=== PATIENT | female | born 1980 | race Caucasian/White ===

== ENCOUNTER 2016-05-15 20:51 | Emergency (ER) | payer OTHER ==
--- NOTE | 2016-05-15 21:43 | RAD ---
INDICATION: Diabetic ketoacidosis COMPARISON: May 25, 2015 TECHNIQUE: An AP portable view obtained at 2130 hours is submitted. FINDINGS: Bones/Soft Tissues: There are no acute bony findings. Cardiomediastinal: The cardiomediastinal silhouette is normal. Lungs: There are no infiltrates. Pleura: There are no pleural effusions. Other: None IMPRESSION: NO ACTIVE DISEASE.
[2016-05-15 22:33] LABS: Hematocrit 46 % (35-47); Hemoglobin 15.4 g/dl (12.0-16.0); Mean Corpuscular HGB Conc 34 g/dl (31-36); Mean Corpuscular Hemoglobin 29 pg (27-31); Mean Corpuscular Volume 86 fL (80-97); Mean Platelet Volume 8 um3 (7.4-10.4); Red Blood Count 5.29 10^6/ul (4.0-5.4); Red Cell Distribution Width 13 % (10.5-15); White Blood Count 11.1 10^3/ul (3.5-10.8)
[2016-05-15 22:47] LABS: ALT 26 U/L (7-52); Albumin 3.7 g/dL (3.2-5.2); Alkaline Phosphatase 83 U/L (34-104); BUN/Creatinine Ratio 23.6 (8-20); Blood Urea Nitrogen 17 mg/dL (6-24); CO2 Carbon Dioxide 22 mmol/L (22-32); Calcium 8.9 mg/dL (8.6-10.3); Chloride 101 mmol/L (101-111); EGFR African American 117.2 (>60); EGFR Non-African American 91.1 (>60); Glucose 418 mg/dL (70-100); Sodium 134 mmol/L (133-145); Total Protein 6.7 g/dL (6.4-8.9)
[2016-05-15] MEDS ORDERED: NS 0.9% 1000 ML* 3,000 ML IV ONE (22:55)
[2016-05-15 23:12] LABS: Urine Bacteria Absent (Absent); Urine Bilirubin Negative (Negative); Urine Glucose 3+(>=500 mg/dL) (Negative); Urine Nitrite Negative (Negative)
[2016-05-15] MEDS ORDERED: Ondansetron INJ* 2 MG/ML VIAL IV ONE (23:46)
[2016-05-15] MEDS ORDERED: Morphine INJ* 4 MG/ML 1 ML CARPUJECT IV ONE (23:46)
[2016-05-15] MEDS ORDERED: Insulin REGULAR(*) 1 UNITS UNIT SUBCUT ONE (23:53)
[2016-05-16 00:35] LABS: Venous Bicarbonate HCO3 19.9 mmol/L (24-28)
[2016-05-16 00:40] LABS: BUN/Creatinine Ratio 24.2 (8-20); EGFR African American 129.6 (>60); EGFR Non-African American 100.8 (>60); Potassium 4.1 mmol/L (3.5-5.0)
[2016-05-16] MEDS ORDERED: Fluconazole 100 MG TAB* TAB PO ONE (00:43)
[2016-05-16] MEDS ORDERED: Morphine INJ* 2 MG/ML 1 ML CARPUJECT IV ONE ×2 (01:35→03:05)
[2016-05-16] MEDS ORDERED: Ondansetron INJ* 2 MG/ML VIAL ONE (01:44)
[2016-05-16] MEDS ORDERED: Ondansetron INJ* 2 MG/ML VIAL IV ONE (01:54)
[2016-05-16] MEDS ORDERED: Iodixanol* (CONTRAST) 320 MG/ML 100 ML SDV IV ONE (02:02)
[2016-05-16] MEDS ORDERED: Mouth Piece, Nicotine* 1 EACH CARTRIDGE ONE (02:58)
[2016-05-16] MEDS ORDERED: Nicotine Inhaler* 10 MG AMP ONE (02:58)
[2016-05-16] MEDS ORDERED: Nicotine Inhaler* 10 MG AMP INH ONE (02:59)
[2016-05-16] MEDS ORDERED: Morphine INJ* 4 MG/ML 1 ML CARPUJECT ONE (03:03)
[2016-05-16 03:15] VITALS: BP 128/82
[2016-05-16] MEDS ORDERED: Levofloxacin TAB* 500 MG PO ONE (03:24)
--- NOTE | 2016-05-16 03:44 | ED ---
Chelsea Celaya SooYoung, scribed for Slick Barney on 05/16/16 at 0306 . Progress - Progress Note Progress Note: Sign out from Dr. Lozano. Awaiting CT results. - Results/Orders Results/Orders: A/P CT RESULTS, READ BY RADIOLOGIST IMPRESSION: No evidence of acute pathology. Course/Dx - Course Course Of Treatment: CT is negative. Pt will be D/C with Levaquin. - Diagnoses Provider Diagnoses: UTI (urinary tract infection), Uncontrolled diabetes mellitus The documentation as recorded by the Chelsea gunter SooYoung accurately reflects the service I personally performed and the decisions made by Ector gilliland Emmanuel.
--- NOTE | 2016-05-16 08:00 | RAD ---
INDICATION: Left lower quadrant and left flank pain. COMPARISON: Correlation is made with a prior right upper quadrant ultrasound from April 14, 2011. TECHNIQUE: A CT scan of the abdomen and pelvis was performed with intravenous and oral contrast following intravenous injection of 100 ml of Visipaque 320 nonionic contrast. Contiguous axial sections were obtained from the lung bases through the symphysis pubis. Images were reconstructed in the coronal and sagittal planes. FINDINGS: The lung bases are clear. No pleural effusion is present. The liver is moderately enlarged and decreased in attenuation consistent with fatty infiltration. No significant focal abnormality is seen. The spleen is normal in size without focal abnormality. The pancreas appears to be within normal limits. No calcified gallstones are seen. The kidneys and adrenal glands are normal in size. No hydronephrosis is seen. There is a small 0.8 cm cyst in the upper pole of the right kidney. The aorta is normal in caliber with mild calcific plaque present. No significant enlarged retroperitoneal lymph nodes are seen. The stomach, small and large bowel appear nondistended. The appendix is within normal limits. There is moderate descending and sigmoid diverticulosis without evidence for diverticulitis. The uterus is anteverted and normal in size. No free intraperitoneal air or fluid is seen. No significant focal osseous abnormality is seen. IMPRESSION: 1. NO EVIDENCE FOR ACUTE FINDING OR CAUSE FOR THE PATIENT'S ABDOMINAL PAIN IS SEEN. 2. MODERATE HEPATOMEGALY AND HEPATIC STEATOSIS.
--- NOTE | 2016-05-22 23:42 | ED ---
Tawny Celaya Janilya, scribed for Reuben Lozano MD on 05/15/16 at 2338 . Complex/Multi-Sys Presentation - HPI Summary HPI Summary: A 36 y/o female came in to [facility] presenting w/ a gradual onset of constant lower back pain, mid abd pain, and flank pain starting . Pt also reported migraine, mild bloody stool, diarrhea, chills, mild coughing. Pt denies fever, body aches. Pt has been out of insulin for over a week. Pt was on Vicodin for tooth ache two months ago. Dr. Guajardo is her PCP. PMHx DM. No PSHx gallbladder removed, appendectomy. - History Of Current Complaint Chief Complaint: EDGeneral Time Seen by Provider: 05/15/16 21:24 Hx Obtained From: Patient Onset/Duration: Gradual Onset Timing: Constant Severity Currently: Moderate Severity Initially: Moderate Associated Signs And Symptoms: Positive: Headache, Cough, Diarrhea, Abdominal Pain, Back Pain. Negative: Dysuria, Fever - Allergies/Home Medications Allergies/Adverse Reactions: Allergies Allergy/AdvReac Type Severity Reaction Status Date / Time Aspirin Allergy Vomiting Verified 05/15/16 20:54 Chlorpromazine Allergy Swelling Verified 05/15/16 20:54 [From Thorazine] Glipizide Allergy Blurred Verified 05/15/16 20:54 Vision PMH/Surg Hx/FS Hx/Imm Hx Endocrine/Hematology History: Reports: Hx Diabetes Cardiovascular History: Reports: Hx Hypertension, Other Cardiovascular Problems/ Disorders - born with hole in heart, HX of mumur as child. Denies: Hx Pacemaker/ICD Respiratory History: Reports: Hx Asthma - As a child GI History: Reports: Other GI Disorders - IBS Musculoskeletal History: Denies: Hx Rheumatoid Arthritis, Hx Osteoporosis Sensory History: Denies: Hx Hearing Aid Neurological History: Reports: Hx Headaches Denies: Other Neuro Impairments/Disorders Psychiatric History: Reports: Hx Panic Disorder - Surgical History Surgery Procedure, Year, and Place: FATTY LIPOMA OF RIGHT AXILLIA NOV 2013 Infectious Disease History: No Infectious Disease History: Denies: Traveled Outside the [place] in Last 30 Days - Family History Known Family History: Positive: Diabetes - father - Social History 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 Negative: Fever Negative: Erythema Negative: Sore Throat Negative: Chest Pain Positive: Cough - mild coughing. Negative: Shortness Of Breath Positive: Abdominal Pain, Diarrhea. Negative: Vomiting, Nausea Genitourinary: Other - mild bloody stool Positive: flank pain. Negative: dysuria, hematuria Musculoskeletal: Negative - pt denies other body aches Positive: Arthralgia - back pain, Myalgia - back pain. Negative: Edema Negative: Rash Positive: Headache All Other Systems Reviewed And Are Negative: Yes Physical Exam - Summary Physical Exam Summary: Constitutional: Well-developed, Well-nourished, Alert. (-) Distressed Skin: Warm, Dry HENT: Normocephalic; Atraumatic; dry mucous membranes Eyes: Conjunctiva normal Neck: Musculoskeletal ROM normal neck. (-) JVD, (-) Stridor, (-) Tracheal deviation Cardio: Rhythm regular, rate normal, Heart sounds normal; Intact distal pulses; The pedal pulses are 2+ and symmetric. Radial pulses are 2+ and symmetric. (-) Murmur Pulmonary/Chest wall: Effort normal. (-) Respiratory distress, (-) Wheezes, (-) Rales Abd: Soft, LLQ tenderness, (-) Distension, (-) Guarding, (-) Rebound Musculoskeletal: (-) Edema, CVA tenderness Lymph: (-) Cervical adenopathy Neuro: Alert, Oriented x3 Psych: Mood and affect Normal Triage Information Reviewed: Yes Vital Signs On Initial Exam: Initial Vitals Temp Pulse Resp BP Pulse Ox 97.6 F 107 18 160/91 96 05/15/16 20:54 05/15/16 20:54 05/15/16 20:54 05/15/16 20:54 05/15/16 20:54 Vital Signs Reviewed: Yes Diagnostics - Vital Signs Vital Signs Temp Pulse Resp BP Pulse Ox 05/15/16 23:00 108 139/86 97 05/15/16 22:30 88 129/75 97 05/15/16 22:16 93 95 05/15/16 22:14 124/77 05/15/16 20:54 97.6 F 107 18 160/91 96 - Laboratory Lab Results: Lab Results 05/15/16 05/15/16 05/15/16 Range/Units 21:00 22:20 22:20 WBC 11.1 H (3.5-10.8) 10^3/ul RBC 5.29 (4.0-5.4) 10^6/ul Hgb 15.4 (12.0-16.0) g/dl Hct 46 (35-47) % MCV 86 (80-97) fL MCH 29 (27-31) pg MCHC 34 (31-36) g/dl RDW 13 (10.5-15) % Plt Count 287 (150-450) 10^3/ul MPV 8 (7.4-10.4) um3 Neut % (Auto) 55.4 (38-83) % Lymph % (Auto) 35.3 (25-47) % [place] % (Auto) 8.0 (1-9) % Eos % (Auto) 0.7 (0-6) % Baso % (Auto) 0.6 (0-2) % Absolute Neuts (auto) 6.1 (1.5-7.7) 10^3/ul Absolute Lymphs (auto) 3.9 (1.0-4.8) 10^3/ul Absolute Monos (auto) 0.9 H (0-0.8) 10^3/ul Absolute Eos (auto) 0.1 (0-0.6) 10^3/ul Absolute Basos (auto) 0.1 (0-0.2) 10^3/ul Absolute Nucleated RBC 0 10^3/ul Nucleated RBC % 0 Sodium 134 (133-145) mmol/L Potassium TNP Chloride 101 (101-111) mmol/L Carbon Dioxide 22 (22-32) mmol/L Anion Gap TNP BUN 17 (6-24) mg/dL Creatinine 0.72 (0.51-0.95) mg/dL Est GFR ( Amer) 117.2 (>60) Est GFR (Non-Af Amer) 91.1 (>60) BUN/Creatinine Ratio 23.6 H (8-20) Glucose 418 H (70-100) mg/dL Lactic Acid (0.5-2.0) mmol/L Calcium 8.9 (8.6-10.3) mg/dL Total Bilirubin 0.30 (0.2-1.0) mg/dL AST TNP ALT 26 (7-52) U/L Alkaline Phosphatase 83 (34-104) U/L Total Protein 6.7 (6.4-8.9) g/dL Albumin 3.7 (3.2-5.2) g/dL Globulin 3.0 (2-4) g/dL Albumin/Globulin Ratio 1.2 (1-3) Urine Color Yellow Urine Appearance Cloudy Urine pH 5.0 (5-9) Ur Specific [place] 1.036 H (1.010-1.030) Urine Protein Negative (Negative) Urine Ketones Trace H (Negative) Urine Blood 1+ H (Negative) Urine Nitrate Negative (Negative) Urine Bilirubin Negative (Negative) Urine Urobilinogen Negative (Negative) Ur Leukocyte Esterase 3+ H (Negative) Urine WBC (Auto) 3+(>20/hpf) H (Absent) Urine RBC (Auto) 3+(>10/hpf) H (Absent) Ur Squamous Epith Cells Present H (Absent) Urine Bacteria Absent (Absent) Urine Glucose 3+(>=500 mg/dl) H (Negative) 05/15/16 Range/Units 22:20 WBC (3.5-10.8) 10^3/ul RBC (4.0-5.4) 10^6/ul Hgb (12.0-16.0) g/dl Hct (35-47) % MCV (80-97) fL MCH (27-31) pg MCHC (31-36) g/dl RDW (10.5-15) % Plt Count (150-450) 10^3/ul MPV (7.4-10.4) um3 Neut % (Auto) (38-83) % Lymph % (Auto) (25-47) % [place] % (Auto) (1-9) % Eos % (Auto) (0-6) % Baso % (Auto) (0-2) % Absolute Neuts (auto) (1.5-7.7) 10^3/ul Absolute Lymphs (auto) (1.0-4.8) 10^3/ul Absolute Monos (auto) (0-0.8) 10^3/ul Absolute Eos (auto) (0-0.6) 10^3/ul Absolute Basos (auto) (0-0.2) 10^3/ul Absolute Nucleated RBC 10^3/ul Nucleated RBC % Sodium (133-145) mmol/L Potassium Chloride (101-111) mmol/L Carbon Dioxide (22-32) mmol/L Anion Gap BUN (6-24) mg/dL Creatinine (0.51-0.95) mg/dL Est GFR ( Amer) (>60) Est GFR (Non-Af Amer) (>60) BUN/Creatinine Ratio (8-20) Glucose (70-100) mg/dL Lactic Acid 3.4 H* (0.5-2.0) mmol/L Calcium (8.6-10.3) mg/dL Total Bilirubin (0.2-1.0) mg/dL AST ALT (7-52) U/L Alkaline Phosphatase (34-104) U/L Total Protein (6.4-8.9) g/dL Albumin (3.2-5.2) g/dL Globulin (2-4) g/dL Albumin/Globulin Ratio (1-3) Urine Color Urine Appearance Urine pH (5-9) Ur Specific [place] (1.010-1.030) Urine Protein (Negative) Urine Ketones (Negative) Urine Blood (Negative) Urine Nitrate (Negative) Urine Bilirubin (Negative) Urine Urobilinogen (Negative) Ur Leukocyte Esterase (Negative) Urine WBC (Auto) (Absent) Urine RBC (Auto) (Absent) Ur Squamous Epith Cells (Absent) Urine Bacteria (Absent) Urine Glucose (Negative) Result Diagrams: 05/15/16 22:20 05/15/16 22:20 Lab Statement: Any lab studies that have been ordered have been reviewed, and results considered in the medical decision making process. - Radiology CXR Xray Interpretation: No Acute Changes - IMPRESSION: No active disease Radiology Interpretation Completed By: Radiologist Complex Multi-Symp Course/Dx Course Of Treatment: Signed out to Dr. Barney (overnight ED MD) pending Chemistry and CT of abd/pel. Chemistry redrawn due to hemolysis. Diff Dx include diverticulitis, DKA, pyelonephritis, kidney stone, colitis, hyperglycemia. Diagnosis: medical non-compliance (off insulin due PCP negligence ). - Diagnoses Differential Diagnoses/HQI/PQRI: Other - Diverticulitis, hyperglycemia, DKA, pyelonephritis, kidney stone, colitis Provider Diagnoses: Medical non-compliance Discharge - Discharge Plan Condition: Stable Disposition: OTHER Discharge Disposition Comment: Signed out to Dr. Barney pending Chemistry and CT abd/pel. Referrals: Jazzmine Guajardo MD [Primary Care Provider] - The documentation as recorded by the Tawny gunter Janilya accurately reflects the service I personally performed and the decisions made by me, Reuben Lozano MD.
== END 2016-05-16 04:01 | disposition home or self-care (01) ==
LOC: ED 20:51
DX: N39.0 Urinary tract infection, site not specified (principal); E11.8 Type 2 diabetes mellitus with unspecified complications; Z79.4 Long term (current) use of insulin
CPT/HCPCS: 36415; 71010; 74177; 80048; 80053; 81003; 81015; 82010; 82803; 83605; 84450; 85025; 87077; 87086; 96360; 96374; 96375; 96376; 99284; A9270-GY; J2270; J2405; Q9967

== ENCOUNTER 2016-07-19 07:24 | Emergency (ER) | payer OTHER ==
[2016-07-19] MEDS ORDERED: Albuterol/Ipratropium NEB.SOL* Albuterol 2.5 MG/Ipratropium 0.5 MG 3 ML ONE (07:47)
[2016-07-19] MEDS ORDERED: Albuterol/Ipratropium NEB.SOL* Albuterol 2.5 MG/Ipratropium 0.5 MG 3 ML INH ONE ×3 (07:51→08:51)
--- NOTE | 2016-07-19 08:40 | RAD ---
Indication: Chest pain, cough, shortness of breath. History of congenital heart disease/murmur. Comparison: May 16, [address] May 15, 2016 chest radiograph. Technique: Upright AP 0820 hours Report: Accounting for superimposed soft tissues and normal bronchovascular markings the lungs and pleural spaces are clear. Negative for pneumothorax. The heart, pulmonary vasculature, and mediastinal contours are unremarkable. IMPRESSION: No evidence for acute intrathoracic disease.
[2016-07-19] MEDS ORDERED: NS 0.9% 1000 ML* 1,000 ML IV ONE ×2 (08:42→08:51)
[2016-07-19] MEDS ORDERED: Ketorolac INJ* 30 MG/ML 1 ML VIAL IV PUSH ONE (08:52)
[2016-07-19] MEDS ORDERED: methylPREDNISolone SOD SUCC* 125 MG 2 ML VIAL IV ONE (08:52)
[2016-07-19 09:06] LABS: Hematocrit 46 % (35-47); Hemoglobin 15.5 g/dl (12.0-16.0); Mean Corpuscular HGB Conc 34 g/dl (31-36); Mean Corpuscular Hemoglobin 29 pg (27-31); Mean Corpuscular Volume 87 fL (80-97); Mean Platelet Volume 8 um3 (7.4-10.4); Red Blood Count 5.31 10^6/ul (4.0-5.4); Red Cell Distribution Width 13 % (10.5-15); White Blood Count 16.1 10^3/ul (3.5-10.8)
--- NOTE | 2016-07-19 09:06 | ED ---
Petra Celaya Salem, scribed for Mallorie Myers MD on 07/19/16 at 0842 . Shortness of Breath - HPI Summary HPI Summary: Patient is 36 y/o female who presents to the ED through ambulatory triage. Pt reporting SOB since last night. She reports she started coughing at work yesterday and has been experiencing burning CP in the midsternum since. Pain is aggravated with deep breathes and coughing. Pt denies fevers, chills. Pt denies cp excpet with cough and deep breath. No head congestion. No sore throat. She also reports pain in the calves. She states she has not taken any pain medications this morning, but she used a nasal spray last night. Pt reports her son had a cold this past week, but it was not as severe. Patient did not receive a flu shot this year. PMHs significant for asthma. LMP was 2 years ago. She states she is allergic to Glipizide and Aspirin. (Patient has not had a cigarette in 12 hours and she has DM with a typical sugar level of 253.) - History of Current Complaint Chief Complaint: EDShortnessOfBreath Hx Obtained From: Patient Onset/Duration: Gradual Onset, Lasting Hours, Still Present Current Severity: Moderate Aggrevating Factors: Deep Breaths Alleviating Factors: Nothing Associated Signs & Symptoms: Cough (Nonproductive), Chest Pain w/Cough, Fever, Calf Pain/Swelling - Allergy/Home Medications Allergies/Adverse Reactions: Allergies Allergy/AdvReac Type Severity Reaction Status Date / Time Aspirin Allergy Vomiting Verified 07/19/16 08:06 Chlorpromazine Allergy Swelling Verified 07/19/16 08:06 [From Thorazine] Glipizide Allergy Blurred Verified 07/19/16 08:06 Vision PMH/Surg Hx/FS Hx/Imm Hx Previously Healthy: Yes Endocrine/Hematology History: Reports: Hx Diabetes Denies: Hx Anticoagulant Therapy Cardiovascular History: Reports: Hx Hypertension, Other Cardiovascular Problems/ Disorders - born with hole in heart, HX of mumur as child. Denies: Hx Pacemaker/ICD Respiratory History: Reports: Hx Asthma - As a child GI History: Reports: Other GI Disorders - IBS History: Denies: Hx Dialysis, Hx Renal Disease Musculoskeletal History: Denies: Hx Rheumatoid Arthritis, Hx Osteoporosis Sensory History: Denies: Hx Hearing Aid Neurological History: Reports: Hx Headaches Denies: Other Neuro Impairments/Disorders Psychiatric History: Reports: Hx Panic Disorder - Surgical History Surgery Procedure, Year, and Place: FATTY LIPOMA OF RIGHT AXILLIA NOV 2013 Infectious Disease History: No Infectious Disease History: Denies: Traveled Outside the [place] in Last 30 Days - Family History Known Family History: Positive: Diabetes - father - Social History Alcohol Use: None Hx Substance Use: Yes Substance Use Type: Reports: Marijuana Substance Use Comment - Amount & Last Used: one week Hx Tobacco Use: Yes Smoking Status (MU): Heavy Every Day Tobacco Smoker - 1ppd in 2-3 days. Review of Systems Positive: Fever Eyes: Negative ENT: Negative Positive: Chest Pain - Burning. Respiratory: Other - No wheezing. Positive: Shortness Of Breath, Cough Gastrointestinal: Negative Genitourinary: Negative Positive: Other - Pain in calves Skin: Negative Neurological: Negative Psychological: Normal All Other Systems Reviewed And Are Negative: Yes Physical Exam Triage Information Reviewed: Yes Vital Signs On Initial Exam: Initial Vitals Temp Pulse Resp BP Pulse Ox 98.6 F 120 20 160/85 100 07/19/16 07:26 07/19/16 07:26 07/19/16 07:26 07/19/16 07:26 07/19/16 07:26 Vital Signs Reviewed: Yes Appearance: Positive: Well-Appearing, Well-Nourished, Pain Distress - coughing, whispering mild discomfort Skin: Positive: Warm, Skin Color Reflects Adequate Perfusion, Dry Head/Face: Positive: Normal Head/Face Inspection Eyes: Positive: EOMI, VELVET ENT: Positive: Pharynx normal, TMs normal, Other - lips dry, mm pasty Neck: Positive: Supple, Nontender, No Lymphadenopathy Respiratory/Lung Sounds: Positive: Clear to Auscultation, Breath Sounds Present , Wheezes - few, scattered + BS throughout Cardiovascular: Positive: Normal, RRR Abdomen Description: Positive: Nontender, No Organomegaly, Soft Bowel Sounds: Positive: Present Musculoskeletal: Positive: Normal, Strength/ROM Intact Neurological: Positive: Normal, Sensory/Motor Intact, Alert, Oriented to Person Place, Time Psychiatric: Positive: Normal AVPU Assessment: Alert - Dang Coma Scale Best Eye Response: 4 - Spontaneous Best Motor Response: 6 - Obeys Commands Best Verbal Response: 5 - Oriented Diagnostics - Vital Signs Vital Signs Temp Pulse Resp BP Pulse Ox 07/19/16 08:20 100.9 F 07/19/16 08:09 100.5 F 113 19 156/83 100 07/19/16 08:06 113 18 147/93 100 07/19/16 08:01 100.5 F 111 19 156/83 100 07/19/16 07:26 98.6 F 120 20 160/85 100 - Laboratory Result Diagrams: 07/19/16 08:46 07/19/16 08:46 Lab Statement: Any lab studies that have been ordered have been reviewed, and results considered in the medical decision making process. - Radiology CXR Radiology Interpretation Completed By: Radiologist - IMPRESSION: No evidence for acute intrathoracic disease. - EKG 0757 EKG Rhythm: Sinus Tachycardia - @ 112 bpm. EKG Interpretation: No acture ST T waves. Re-Evaluation - Re-Evaluation First Eval Re-Evaluation Time: 09:28 Change: Improved Second Eval Re-Evaluation Time: 10:18 Comment: Pt is feeling better and would like to be discharged. She is eating and drinking. Course/Dx - Course Assessment/Plan: Pt presents with cough, sob, wheeze and burning chest pain with cough x 24 hours. Pt with slight oral fever. diff includes bronchitis, PNA, asthma exacerbation, influenza Low suspicion for PE but will screen with ddimer. steroid. ivf. labs. cxr. EKG. close reassessment - Diagnoses Provider Diagnoses: Bronchitis Discharge - Discharge Plan Condition: Stable Disposition: HOME Patient Education Materials: Acute Bronchitis (ED) Referrals: Jazzmine Guajardo MD [Primary Care Provider] - Additional Instructions: - stay well hydrated - drink plenty of non-alcoholic, non-caffinated beverages - Take antibiotics as prescribed - Take prednisone once a day as prescribed starting tomorrow- this will increase your blood sugar levels - Use albuterol every 4 hours for the first day, then every 4 hours as needed -These infections are spread by sputum, secretions - make sure you clean cellphone, ipad, computer mouse, TV remote and anything that will get your secretions - change your toothbrush and your pillow case after you have been on antibiotics - contact your doctor to schedule a follow-up appointment - The documentation as recorded by the Petra gunter Salem accurately reflects the service I personally performed and the decisions made by , Mallorie Myers MD.
[2016-07-19 09:07] LABS: Comments Flag Yes
[2016-07-19 09:08] LABS: Add Diff/Slide Review? Slide Review Added
[2016-07-19 09:23] LABS: Albumin 3.9 g/dL (3.2-5.2); BUN/Creatinine Ratio 9.1 (8-20); Calcium 8.8 mg/dL (8.6-10.3); EGFR African American 129.6 (>60); EGFR Non-African American 100.8 (>60); Globulin 3.2 g/dL (2-4); Magnesium 1.5 mg/dL (1.9-2.7); Potassium 3.8 mmol/L (3.5-5.0); Total Bilirubin 0.6 mg/dL (0.2-1.0); Total Protein 7.1 g/dL (6.4-8.9)
[2016-07-19 09:36] LABS: Troponin I 0.01 ng/mL (<0.04)
[2016-07-19 11:22] VITALS: BP 117/63
== END 2016-07-19 11:21 | disposition home or self-care (01) ==
LOC: ED 07:24
DX: J40 Bronchitis, not specified as acute or chronic (principal); M79.606 Pain in leg, unspecified; R06.02 Shortness of breath; R05 Cough; R07.9 Chest pain, unspecified; R50.9 Fever, unspecified; F17.210 Nicotine dependence, cigarettes, uncomplicated
CPT/HCPCS: 36415; 71010; 80053; 83605; 83735; 84484; 85025; 85379; 87040; 87502; 93005; 94640; 96374; 96375; 99284; A9270-GY; J1885; J2930

== ENCOUNTER 2016-10-03 01:08 | Emergency (ER) | payer OTHER ==
[2016-10-03 01:17] VITALS: BP 135/80
== END 2016-10-03 02:04 | disposition left against medical advice (07) ==
LOC: ED 01:08
DX: M79.644 Pain in right finger(s) (principal); Z53.21 Procedure and treatment not carried out due to patient leaving prior to being seen by health care provider

== ENCOUNTER 2016-11-01 21:49 | Emergency (ER) | payer OTHER ==
[2016-11-01 23:23] VITALS: BP 145/95
[2016-11-02] MEDS ORDERED: Ketorolac INJ* 60 MG/2 ML VIAL IM ONE (00:04)
--- NOTE | 2016-11-02 00:05 | ED ---
Upper Extremity Pain - HPI Summary HPI Summary: 36 female presents with complaints of left wrist pain that began this morning upon waking up. She states she thinks she may have slept wrong. She denies any recent trauma or injury. States the pain is aching and sharp and radiates into her hand. Took ibuprofen approximately 6 hours ago (800mg) and had some relief. States she has never had this kind of pain before. Admits and is currently in the midst of working up "nerve pain" radiating down left arm from shoulder. She is not currently having this pain and has not in the past week. Denies any other injuries or complaints at this time. No numbness/tingling. Movement makes the pain worse. No history of DVT. - History of Current Complaint Chief Complaint: EDExtremityUpper Stated Complaint: LT WRIST PAIN Time Seen by Provider: 11/01/16 23:21 Hx Obtained From: Patient Hx Last Menstrual Period: IRREG , NOT SURE LAST PERIOD, Patient is on depo Mechanism Of Injury: Unknown Onset/Duration: Started Hours Ago Timing: Constant Severity Initially: Mild Severity Currently: Moderate Pain Location: Wrist - left Character: Aching Aggravating Factor(s): Movement Alleviating Factor(s): OTC Meds Associated Signs & Symptoms: Positive: Swelling Related History: Dominant Hand Right - Allergies/Home Medications Allergies/Adverse Reactions: Allergies Allergy/AdvReac Type Severity Reaction Status Date / Time Aspirin Allergy Vomiting Verified 07/19/16 08:06 Chlorpromazine Allergy Swelling Verified 07/19/16 08:06 [From Thorazine] Glipizide Allergy Blurred Verified 07/19/16 08:06 Vision PMH/Surg Hx/FS Hx/Imm Hx Endocrine/Hematology History: Reports: Hx Diabetes Denies: Hx Anticoagulant Therapy Cardiovascular History: Reports: Hx Hypertension, Other Cardiovascular Problems/ Disorders - born with hole in heart, HX of mumur as child. Denies: Hx Pacemaker/ICD Respiratory History: Reports: Hx Asthma - As a child GI History: Reports: Other GI Disorders - IBS History: Denies: Hx Dialysis, Hx Renal Disease Musculoskeletal History: Denies: Hx Rheumatoid Arthritis, Hx Osteoporosis Sensory History: Denies: Hx Hearing Aid Neurological History: Reports: Hx Headaches Denies: Other Neuro Impairments/Disorders Psychiatric History: Reports: Hx Panic Disorder - Surgical History Surgery Procedure, Year, and Place: FATTY LIPOMA OF RIGHT AXILLIA NOV 2013 Infectious Disease History: No Infectious Disease History: Denies: Traveled Outside the [place] in Last 30 Days - Family History Known Family History: Positive: Diabetes - father - Social History Alcohol Use: None Hx Substance Use: Yes Substance Use Type: Reports: Marijuana Substance Use Comment - Amount & Last Used: one week Hx Tobacco Use: Yes Smoking Status (MU): Light Every Day Tobacco Smoker Review of Systems Constitutional: Negative Cardiovascular: Negative Respiratory: Negative Gastrointestinal: Negative Positive: Arthralgia, Myalgia, Decreased ROM - due to pain, Edema - left wrist Skin: Negative Neurological: Negative All Other Systems Reviewed And Are Negative: Yes Physical Exam Triage Information Reviewed: Yes Vital Signs On Initial Exam: Initial Vitals Temp Pulse Resp BP Pulse Ox 97.2 F 93 16 138/81 98 11/01/16 21:50 11/01/16 21:50 11/01/16 21:50 11/01/16 21:50 11/01/16 21:50 Vital Signs Reviewed: Yes Appearance: Positive: Well-Appearing, Well-Nourished, Pain Distress - mild with movement or palpation of left wrist Skin: Positive: Warm, Skin Color Reflects Adequate Perfusion, Dry, Other - no erythema, ecchymosis, cyanosis or edema. skin and soft tissue exam appears normal when compared to right. Negative: Numb, "Wooden", Cyanosis @, Erythema @ Head/Face: Positive: Normal Head/Face Inspection Eyes: Positive: Normal, Conjunctiva Clear ENT: Positive: Hearing grossly normal Neck: Positive: Supple, Nontender Respiratory/Lung Sounds: Positive: Clear to Auscultation, Breath Sounds Present. Negative: Rales, Rhonchi, Wheezes Cardiovascular: Positive: Normal, RRR, Pulses are Symmetrical in both Upper and Lower Extremities. Negative: Murmur, Rub Musculoskeletal: Positive: Limited @ - has ROM however causes pain, better with passive ROM, Pain @ - left wrist, Other - no crepitus, step off, ecchymosis or edema, or obvious deformity noted. Negative: Interruption @, Edema Left, Edema Right Neurological: Positive: Normal, Sensory/Motor Intact - sensation intact and normal, Alert, Oriented to Person Place, Time, CN Intact II-III, Reflexes Intact , NV Bundle Intact Distally Psychiatric: Positive: Affect/Mood Appropriate AVPU Assessment: Alert Diagnostics - Vital Signs Vital Signs Temp Pulse Resp BP Pulse Ox 11/01/16 23:18 98.2 F 90 16 145/95 96 11/01/16 21:50 97.2 F 93 16 138/81 98 - Laboratory Lab Statement: Any lab studies that have been ordered have been reviewed, and results considered in the medical decision making process. - Radiology wrist Xray Interpretation: No Acute Changes Radiology Interpretation Completed By: ED Physician - Dr Kinney Course/Dx - Course Course Of Treatment: x-ray obtained and negative. given brace and toradol had relief. ice, elevate and follow up. appears to have suffered a strain while sleeping. aware of worsening signs and symptoms to watch out for. follow up with PCP. ibuprofen at home with food starting tomorrow. wanted to be d/c after toradol and x-ray results. patient wanted to make sure nothing significant due to diabetes. - Diagnoses Differential Diagnosis/HQI/PQRI: Positive: Arthritis, Contusion, Fracture ( Closed), Strain, Sprain Provider Diagnoses: Wrist pain, left Discharge - Discharge Plan Condition: Stable Disposition: HOME Patient Education Materials: Arthralgia (ED) Referrals: Donny Rajan RUBBLE PLACER [Primary Care Provider] - Additional Instructions: Continue taking ibuprofen with food every 6-8 hours as needed for pain. Elevate, ice and use ximena bandage for compression. Follow up with PCP. If symptoms worsen such as redness, swelling, numbness, blue fingers or do not improve please seek medical attention promptly.
--- NOTE | 2016-11-02 08:32 | RAD ---
Indication: Left wrist pain 3 views of the wrist demonstrates no fracture. No other bone or joint abnormality is identified. IMPRESSION: NO FRACTURE OF THE WRIST IS NOTED.
== END 2016-11-02 00:46 | disposition home or self-care (01) ==
LOC: ED 21:49
DX: M25.532 Pain in left wrist (principal); E11.9 Type 2 diabetes mellitus without complications; I10 Essential (primary) hypertension; J45.909 Unspecified asthma, uncomplicated; K58.9 Irritable bowel syndrome, unspecified; F41.0 Panic disorder [episodic paroxysmal anxiety]
CPT/HCPCS: 96372; 99281; J1885

== ENCOUNTER → 2017-01-20 10:28 | Emergency (ER) | payer OTHER ==
[~2017-01-20 10:28] MED LIST: Ketorolac INJ* 30 MG/ML 1 ML VIAL IV PUSH ONE
[2017-01-20 10:35] VITALS: BP 132/77
[2017-01-20] MEDS: NS 0.9% 1000 ML* 2,000 ML IV ONE (11:08)
[2017-01-20 11:31] LABS: ALT 23 U/L (7-52); Albumin 3.9 g/dL (3.2-5.2); Alkaline Phosphatase 82 U/L (34-104); BUN/Creatinine Ratio 18.2 (8-20); Blood Urea Nitrogen 12 mg/dL (6-24); C Reactive Protein 2.63 mg/L (< 5.00); CO2 Carbon Dioxide 23 mmol/L (22-32); Calcium 8.9 mg/dL (8.6-10.3); Chloride 101 mmol/L (101-111); EGFR African American 129.6 (>60); EGFR Non-African American 100.8 (>60); Globulin 3.2 g/dL (2-4); Glucose 376 mg/dL (70-100); Lipase 44 U/L (11.0-82.0); Sodium 132 mmol/L (133-145); Total Protein 7.1 g/dL (6.4-8.9)
[2017-01-20 11:52] LABS: Hematocrit 46 % (35-47); Hemoglobin 15.6 g/dl (12.0-16.0); Mean Corpuscular HGB Conc 34 g/dl (31-36); Mean Corpuscular Hemoglobin 29 pg (27-31); Mean Corpuscular Volume 87 fL (80-97); Mean Platelet Volume 8 um3 (7.4-10.4); Red Blood Count 5.32 10^6/ul (4.0-5.4); Red Cell Distribution Width 14 % (10.5-15); White Blood Count 9.9 10^3/ul (3.5-10.8)
[2017-01-20 12:14] LABS: Urine Bacteria 1+ (Absent); Urine Bilirubin Negative (Negative); Urine Glucose 3+(>=500 mg/dL) (Negative); Urine Nitrite Negative (Negative)
--- NOTE | 2017-01-20 12:22 | ED ---
Abdominal Pain/Female - HPI Summary HPI Summary: 36 female presents to ED with complaints of diffuse lower abdominal pain that began yesterday. Patient states she thought it was from constipation. Had relief after having large normal bowel movement yesterday however woke up this morning with the same pain again. Denies urinary symptoms. Is currently being treated for yeast infection, no new symptoms. States abdominal pain feels like someone his tearing or punching her lower abdomen. States gas has been foul, has been passing gas. Denies vomiting. Admits to some intermittent nausea. Denies blood in stool. No fever. Admits to having chills sometimes. No other complaints. Nothing makes pain better/worse. Has been eating and drinking normally. Has not taken anything for the pain. Has diabetes that she states puts her in the hospital for some abdominal discomfort and IBS flare up frequently. 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 Has past medical history of DM, IBS and chronic back pain. No other complaints. Not sexually active, has depo for the past 3 years. - History of Current Complaint Chief Complaint: EDAbdPain Stated Complaint: LOWER ABD PAIN Time Seen by Provider: 01/20/17 10:46 Hx Obtained From: Patient Hx Last Menstrual Period: IRREG , NOT SURE LAST PERIOD, Patient is on depo ?: No Onset/Duration: Sudden Onset, Lasting Days, Still Present, Worse Since Timing: Intermittent Episode Lasting Severity Initially: Moderate Severity Currently: Moderate Pain Intensity: 8 Pain Scale Used: 0-10 Numeric Location: Diffuse, Discrete At: RLQ, Discrete At: LLQ, Umbilical Radiates: No Character: Sharp, Cramping, Tearing Aggravating Factor(s): Nothing Alleviating Factor(s): Bowel Movement Associated Signs and Symptoms: Positive: Constipation, Vaginal Discharge - resolved, after treating for yeast infection, Nausea. Negative: Fever, Blood in Stool, Urinary Symptoms, Vaginal Bleeding, Vomiting, Diarrhea Allergies/Adverse Reactions: Allergies Allergy/AdvReac Type Severity Reaction Status Date / Time Aspirin Allergy Vomiting Verified 01/20/17 10:32 Chlorpromazine Allergy Swelling Verified 01/20/17 10:32 [From Thorazine] Glipizide Allergy Blurred Verified 01/20/17 10:32 Vision PMH/Surg Hx/FS Hx/Imm Hx Endocrine/Hematology History: Reports: Hx Diabetes Denies: Hx Anticoagulant Therapy Cardiovascular History: Reports: Hx Hypertension, Other Cardiovascular Problems/ Disorders - born with hole in heart, HX of mumur as child. Denies: Hx Pacemaker/ICD Respiratory History: Reports: Hx Asthma - As a child GI History: Reports: Other GI Disorders - IBS History: Denies: Hx Dialysis, Hx Renal Disease Musculoskeletal History: Denies: Hx Rheumatoid Arthritis, Hx Osteoporosis Sensory History: Denies: Hx Hearing Aid Neurological History: Reports: Hx Headaches Denies: Other Neuro Impairments/Disorders Psychiatric History: Reports: Hx Panic Disorder - Surgical History Surgery Procedure, Year, and Place: FATTY LIPOMA OF RIGHT AXILLIA NOV 2013 - Immunization History Immunizations Up to Date: Yes Infectious Disease History: No Infectious Disease History: Denies: Traveled Outside the [place] in Last 30 Days - Family History Known Family History: Positive: Diabetes - father - Social History 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 Alcohol Use: None Hx Substance Use: Yes Substance Use Type: Reports: Marijuana Substance Use Comment - Amount & Last Used: one week Hx Tobacco Use: Yes Smoking Status (MU): Light Every Day Tobacco Smoker Review of Systems Positive: Chills Eyes: Negative ENT: Negative Cardiovascular: Negative Respiratory: Negative Positive: Abdominal Pain, Nausea Genitourinary: Negative Musculoskeletal: Negative Neurological: Negative All Other Systems Reviewed And Are Negative: Yes Physical Exam Triage Information Reviewed: Yes Vital Signs On Initial Exam: Initial Vitals Temp Pulse Resp BP Pulse Ox 98.2 F 95 20 132/77 97 01/20/17 10:32 01/20/17 10:32 01/20/17 10:32 01/20/17 10:32 01/20/17 10:32 Vital Signs Reviewed: Yes Appearance: Positive: Well-Appearing, Well-Nourished, Pain Distress - mild, intermittently Skin: Positive: Warm, Skin Color Reflects Adequate Perfusion, Dry. Negative: Cold, Soft, Cyanosis @, Jaundiced, Pale, Erythema @ Head/Face: Positive: Normal Head/Face Inspection. Negative: Scalp Eyes: Positive: Conjunctiva Clear ENT: Positive: Hearing grossly normal, Pharynx normal Neck: Positive: Supple, Nontender, No Lymphadenopathy Respiratory/Lung Sounds: Positive: Clear to Auscultation, Breath Sounds Present. Negative: Rales, Rhonchi, Wheezes Cardiovascular: Positive: Normal, RRR, Pulses are Symmetrical in both Upper and Lower Extremities. Negative: Murmur, Rub Abdomen Description: Positive: No Organomegaly, Soft, Other: - diffuse tenderness throughout palpation. negative psoas, rovsings and rebound. Negative : Bruit, CVA Tenderness (R), CVA Tenderness (L), Distended, Guarding, McBurney' s Point Tenderness, Peritoneal Signs Bowel Sounds: Positive: Present Pelvic Exam: Positive: external exam normal - per patient, deferred exam Musculoskeletal: Positive: Normal, Strength/ROM Intact Neurological: Positive: Normal, Sensory/Motor Intact, Alert, Oriented to Person Place, Time Psychiatric: Positive: Affect/Mood Appropriate - [place] Coma Scale Coma Scale Total: 15 Diagnostics - Vital Signs Vital Signs Temp Pulse Resp BP Pulse Ox 01/20/17 10:32 98.2 F 95 20 132/77 97 - Laboratory Lab Results: Lab Results 01/20/17 01/20/17 01/20/17 Range/Units 10:59 10:59 10:59 WBC 9.9 (3.5-10.8) 10^3/ul RBC 5.32 (4.0-5.4) 10^6/ul Hgb 15.6 (12.0-16.0) g/dl Hct 46 (35-47) % MCV 87 (80-97) fL MCH 29 (27-31) pg MCHC 34 (31-36) g/dl RDW 14 (10.5-15) % Plt Count 342 (150-450) 10^3/ul MPV 8 (7.4-10.4) um3 Neut % (Auto) 62.3 (38-83) % Lymph % (Auto) 28.7 (25-47) % Wood % (Auto) 7.1 (1-9) % Eos % (Auto) 1.0 (0-6) % Baso % (Auto) 0.9 (0-2) % Absolute Neuts (auto) 6.2 (1.5-7.7) 10^3/ul Absolute Lymphs (auto) 2.8 (1.0-4.8) 10^3/ul Absolute Monos (auto) 0.7 (0-0.8) 10^3/ul Absolute Eos (auto) 0.1 (0-0.6) 10^3/ul Absolute Basos (auto) 0.1 (0-0.2) 10^3/ul Absolute Nucleated RBC 0.01 10^3/ul Nucleated RBC % 0.1 Sodium 132 L (133-145) mmol/L Potassium Pending Chloride 101 (101-111) mmol/L Carbon Dioxide 23 (22-32) mmol/L Anion Gap Pending BUN 12 (6-24) mg/dL Creatinine 0.66 (0.51-0.95) mg/dL Est GFR ( Amer) 129.6 (>60) Est GFR (Non-Af Amer) 100.8 (>60) BUN/Creatinine Ratio 18.2 (8-20) Glucose 376 H (70-100) mg/dL Lactic Acid 2.5 H* (0.5-2.0) mmol/L Calcium 8.9 (8.6-10.3) mg/dL Total Bilirubin 0.40 (0.2-1.0) mg/dL AST Pending ALT 23 (7-52) U/L Alkaline Phosphatase 82 (34-104) U/L C-Reactive Protein 2.63 (< 5.00) mg/L Total Protein 7.1 (6.4-8.9) g/dL Albumin 3.9 (3.2-5.2) g/dL Globulin 3.2 (2-4) g/dL Albumin/Globulin Ratio 1.2 (1-3) Lipase 44 (11.0-82.0) U/L Beta HCG, Quant < 0.60 mIU/mL Urine Color Urine Appearance Urine pH (5-9) Ur Specific [place] (1.010-1.030) Urine Protein (Negative) Urine Ketones (Negative) Urine Blood (Negative) Urine Nitrate (Negative) Urine Bilirubin (Negative) Urine Urobilinogen (Negative) Ur Leukocyte Esterase (Negative) Urine WBC (Auto) (Absent) Urine RBC (Auto) (Absent) Ur Squamous Epith Cells (Absent) Urine Bacteria (Absent) Urine Glucose (Negative) 01/20/17 Range/Units 11:35 WBC (3.5-10.8) 10^3/ul RBC (4.0-5.4) 10^6/ul Hgb (12.0-16.0) g/dl Hct (35-47) % MCV (80-97) fL MCH (27-31) pg MCHC (31-36) g/dl RDW (10.5-15) % Plt Count (150-450) 10^3/ul MPV (7.4-10.4) um3 Neut % (Auto) (38-83) % Lymph % (Auto) (25-47) % Wood % (Auto) (1-9) % Eos % (Auto) (0-6) % Baso % (Auto) (0-2) % Absolute Neuts (auto) (1.5-7.7) 10^3/ul Absolute Lymphs (auto) (1.0-4.8) 10^3/ul Absolute Monos (auto) (0-0.8) 10^3/ul Absolute Eos (auto) (0-0.6) 10^3/ul Absolute Basos (auto) (0-0.2) 10^3/ul Absolute Nucleated RBC 10^3/ul Nucleated RBC % Sodium (133-145) mmol/L Potassium Chloride (101-111) mmol/L Carbon Dioxide (22-32) mmol/L Anion Gap BUN (6-24) mg/dL Creatinine (0.51-0.95) mg/dL Est GFR ( Amer) (>60) Est GFR (Non-Af Amer) (>60) BUN/Creatinine Ratio (8-20) Glucose (70-100) mg/dL Lactic Acid (0.5-2.0) mmol/L Calcium (8.6-10.3) mg/dL Total Bilirubin (0.2-1.0) mg/dL AST ALT (7-52) U/L Alkaline Phosphatase (34-104) U/L C-Reactive Protein (< 5.00) mg/L Total Protein (6.4-8.9) g/dL Albumin (3.2-5.2) g/dL Globulin (2-4) g/dL Albumin/Globulin Ratio (1-3) Lipase (11.0-82.0) U/L Beta HCG, Quant mIU/mL Urine Color Yellow Urine Appearance Cloudy Urine pH 5.0 (5-9) Ur Specific [place] 1.028 (1.010-1.030) Urine Protein Negative (Negative) Urine Ketones Negative (Negative) Urine Blood Negative (Negative) Urine Nitrate Negative (Negative) Urine Bilirubin Negative (Negative) Urine Urobilinogen Negative (Negative) Ur Leukocyte Esterase Trace H (Negative) Urine WBC (Auto) 3+(>20/hpf) H (Absent) Urine RBC (Auto) Trace(0-2/hpf) (Absent) Ur Squamous Epith Cells Present H (Absent) Urine Bacteria 1+ H (Absent) Urine Glucose 3+(>=500 mg/dl) H (Negative) Result Diagrams: 01/20/17 10:59 01/20/17 10:59 Lab Statement: Any lab studies that have been ordered have been reviewed, and results considered in the medical decision making process. - Radiology abdomen Xray Interpretation: Positive (See Comments) - NONOBSTRUCTIVE BOWEL GAS PATTERN. LARGE AMOUNT OF STOOL THROUGHOUT THE COLON. Radiology Interpretation Completed By: Radiologist Re-Evaluation - Re-Evaluation First Eval Re-Evaluation Time: 13:45 Change: Improved - had relief after fluids and pain medication. updated on lab and imaging results. glucose rechecked to be 232. rechecking lactic. patient given food and drank without difficulty. is asking to be d/c. Abdominal Pain Fem Course/Dx - Course Course Of Treatment: given pain medication and fluids. already took insulin prior to arrival. rechecked elevated first lactic acid and glucose. glucose improved. wanted repeat labs for lactic however patient refused as she did not want to wait, was feeling better and wanted to be d/c. x-ray obtained of abdomen showing large amount of stool in colon, non obstructive. No concern for emergent etiology such as diverticulitis, obstruction or appendicitis at this time due to lab results, PE findings and HPI. Recommended laxatives/metamucil and fluids. high fiber diet. better diabetic control. Follow up primary care provider. Aware of worsening signs and symptoms to watch out for, return if occur. - Diagnoses Differential Diagnosis: Positive: Bowel Obstruction, Constipation, Diverticulitis, Urinary Tract Infection Provider Diagnoses: Constipation, Diffuse abdominal pain, Abdominal gas pain Discharge - Discharge Plan Condition: Stable Disposition: HOME Patient Education Materials: Constipation (ED), High Fiber Diet (ED), Abdominal Pain (ED), Gas and Bloating (ED) Forms: *Work Release Referrals: Donny Rajan COMPUTER FIELD TECHNICIAN [Primary Care Provider] - Additional Instructions: Recommend trying metamucil 1- 2 times to help move bowels. Fluids, rest. Ibuprofen for pain and inflammation. Be sure to stay on top of sugar, good diabetic control. IF symptoms worsen or do not improve please return as discussed. Follow up PCP.
--- NOTE | 2017-01-20 13:00 | RAD ---
HISTORY: Abdominal pain COMPARISONS: March 25, 2011 VIEWS: Frontal supine and upright views of the abdomen. FINDINGS: BOWEL: There is a nonobstructive bowel gas pattern. There is a large amount of stool within the colon. CALCULI: There are no abnormal calculi. BONES AND SOFT TISSUES: There are no osseous abnormalities. OTHER FINDINGS: The lung bases are clear. There is no subphrenic gas. IMPRESSION: NONOBSTRUCTIVE BOWEL GAS PATTERN. LARGE AMOUNT OF STOOL THROUGHOUT THE COLON.
[2017-01-20 14:06] LABS: Anion Gap 8 mmol/L (2-11)
--- NOTE | 2017-01-22 21:34 | PN ---
Progress Note - Progress Note Date of Service: 01/20/17 Note: >100,000 kleb penumoniae urine preliminary results not placed on antibiotic at d/c due to no complaint of symptoms called at 3:00pm and left voicemail however patient did not return call. will send letter and script for treatment with bactrim to pharmacy. will wait for final culture results and try and call again.
== END | disposition home or self-care (01) ==
LOC: ED 10:28
DX: R10.31 Right lower quadrant pain (principal); K59.00 Constipation, unspecified; F17.210 Nicotine dependence, cigarettes, uncomplicated; R10.9 Unspecified abdominal pain
CPT/HCPCS: 36415; 74020; 80053; 81003; 81015; 83605; 83690; 84702; 85025; 86140; 87077; 87086; 87186; 96374; 99282; J1885

== ENCOUNTER 2017-02-01 13:29 | Emergency (ER) | payer OTHER ==
[2017-02-01] MEDS ORDERED: Ondansetron ODT TAB* 4 MG SL ONE (15:33)
--- NOTE | 2017-02-01 16:06 | RAD ---
INDICATION: Constipation. COMPARISON: Comparison is made with a prior abdominal series from January 20, 2017. TECHNIQUE: Supine and upright views of the abdomen were obtained. FINDINGS: The small bowel and colon appear nondistended. No free intraperitoneal air is seen. There is a small amount of retained stool within the colon. No abnormal calcifications are seen. IMPRESSION: NO EVIDENCE FOR OBSTRUCTION.
[2017-02-01 16:36] VITALS: BP 133/83
--- NOTE | 2017-02-01 18:29 | ED ---
Complex/Multi-Sys Presentation - HPI Summary HPI Summary: Patient presents with a multitude of complaints which include by not entire, nausea, vomiting, upset stomach, diarrhea, weakness, dizziness, malaise, dorothy stools, occasional chills, left ear pain, decreased appetite, , abdominal pain, and a "stabby pain" below right knee. She has been seen here several times. She is requesting a nausea medication. She feels she may have some constipation. She states she would like to rest. Denies fevers, sweats or chills. Patient is a diabetic and obese. - History Of Current Complaint Chief Complaint: EDGeneral Time Seen by Provider: 02/01/17 14:45 Hx Obtained From: Patient Onset/Duration: Sudden Onset Timing: Constant Severity Currently: Mild Severity Initially: Mild Location: Negative Associated Signs And Symptoms: Positive: Nausea, Abdominal Pain, Decreased Oral Intake - Allergies/Home Medications Allergies/Adverse Reactions: Allergies Allergy/AdvReac Type Severity Reaction Status Date / Time Aspirin Allergy Vomiting Verified 01/20/17 10:32 Chlorpromazine Allergy Swelling Verified 01/20/17 10:32 [From Thorazine] Glipizide Allergy Blurred Verified 01/20/17 10:32 Vision PMH/Surg Hx/FS Hx/Imm Hx Previously Healthy: Yes Endocrine/Hematology History: Reports: Hx Diabetes Denies: Hx Anticoagulant Therapy Cardiovascular History: Reports: Hx Hypertension, Other Cardiovascular Problems/ Disorders - born with hole in heart, HX of mumur as child. Denies: Hx Pacemaker/ICD Respiratory History: Reports: Hx Asthma - As a child GI History: Reports: Other GI Disorders - IBS History: Denies: Hx Dialysis, Hx Renal Disease Musculoskeletal History: Denies: Hx Rheumatoid Arthritis, Hx Osteoporosis Sensory History: Denies: Hx Hearing Aid Neurological History: Reports: Hx Headaches Denies: Other Neuro Impairments/Disorders Psychiatric History: Reports: Hx Panic Disorder - Surgical History Surgery Procedure, Year, and Place: FATTY LIPOMA OF RIGHT AXILLIA NOV 2013 - Immunization History Hx Pertussis Vaccination: No Immunizations Up to Date: Unable to Obtain/Confirm Infectious Disease History: No Infectious Disease History: Denies: Traveled Outside the [place] in Last 30 Days - Family History Known Family History: Positive: Diabetes - father - Social History Occupation: Employed Full-time Lives: With Family Alcohol Use: None Hx Substance Use: Yes Substance Use Type: Reports: Marijuana Substance Use Comment - Amount & Last Used: one week Hx Tobacco Use: Yes Smoking Status (MU): Light Every Day Tobacco Smoker Review of Systems Constitutional: Negative Negative: Fever, Chills, Fatigue Eyes: Negative ENT: Negative Cardiovascular: Negative Negative: Shortness Of Breath, Cough Positive: Nausea Positive: no symptoms reported, see HPI Positive: Myalgia Skin: Negative Neurological: Negative All Other Systems Reviewed And Are Negative: Yes Physical Exam Triage Information Reviewed: Yes Vital Signs On Initial Exam: Initial Vitals Temp Pulse Resp BP Pulse Ox 98.3 F 98 20 120/67 96 02/01/17 13:45 02/01/17 13:45 02/01/17 13:45 02/01/17 13:45 02/01/17 13:45 Vital Signs Reviewed: Yes Appearance: Positive: Well-Appearing, Well-Nourished, Obese Skin: Positive: Warm, Skin Color Reflects Adequate Perfusion Neck: Positive: Supple, No Lymphadenopathy Respiratory/Lung Sounds: Positive: Clear to Auscultation, Breath Sounds Present Cardiovascular: Positive: Normal, RRR, Pulses are Symmetrical in both Upper and Lower Extremities Abdomen Description: Positive: Nontender, No Organomegaly, Soft Bowel Sounds: Positive: Present Musculoskeletal: Positive: Normal, Strength/ROM Intact Neurological: Positive: Sensory/Motor Intact, Alert, Oriented to Person Place, Time, Speech Normal Psychiatric: Positive: Normal - [place] Coma Scale Coma Scale Total: 15 Diagnostics - Vital Signs Vital Signs Temp Pulse Resp BP Pulse Ox 02/01/17 16:34 98.5 F 93 20 133/83 93 02/01/17 13:45 98.3 F 98 20 120/67 96 - Laboratory Lab Statement: Any lab studies that have been ordered have been reviewed, and results considered in the medical decision making process. Complex Multi-Symp Course/Dx Course Of Treatment: Patient presents with CC of nausea and decreased oral intake. She states she was seen here 2 weeks ago with similar complaint and dx with constipation from a xray flat plate. She states she feels fatigued. Requesting work note. Xray negative. Zofran given in ED with effect. Patient states she would just like to sleep it off. Discussed blood work, but will defer at this time d/t recent draws with some complaint with no findings. Denies other symptoms. Note given for work. Zofran and maalox rx. - Diagnoses Differential Diagnoses/HQI/PQRI: Other - nausea Provider Diagnoses: Nausea Discharge - Discharge Plan Condition: Stable Disposition: HOME Prescriptions: Al Hydrox/Mg Hydrox/Simet LIQ* [Maalox Plus*] 30 ml PO Q4H PRN #1 udc PRN Reason: Pain Ondansetron ODT TAB* [Zofran 4 MG Odt TAB*] 4 mg PO Q6H PRN #12 tab.odt PRN Reason: Nausea Forms: *Work Release Referrals: Donny Rajan EDUCATIONAL PROGRAM DIRECTOR [Primary Care Provider] - Additional Instructions: Zofran as needed for nausea Maalox plus for abdominal discomfort If any symptoms becomes worse - return to the ED immediately
== END 2017-02-01 16:34 | disposition home or self-care (01) ==
LOC: ED 13:29
DX: R11.2 Nausea with vomiting, unspecified (principal); R10.9 Unspecified abdominal pain; R19.7 Diarrhea, unspecified; R53.1 Weakness; R42 Dizziness and giddiness; R53.81 Other malaise; H92.02 Otalgia, left ear; M79.661 Pain in right lower leg; E11.9 Type 2 diabetes mellitus without complications; I10 Essential (primary) hypertension; J45.909 Unspecified asthma, uncomplicated; K58.9 Irritable bowel syndrome, unspecified; F41.0 Panic disorder [episodic paroxysmal anxiety]; Z88.6 Allergy status to analgesic agent; Z88.8 Allergy status to other drugs, medicaments and biological substances; F12.90 Cannabis use, unspecified, uncomplicated; F17.210 Nicotine dependence, cigarettes, uncomplicated
CPT/HCPCS: 74020; 99282; A9270-GY

== ENCOUNTER 2017-07-20 01:03 | Emergency (ER) | payer OTHER ==
[2017-07-20 01:14] VITALS: BP 134/83
[2017-07-20] MEDS ORDERED: Naproxen TAB* 250 MG PO ONE (01:37)
[2017-07-20] MEDS ORDERED: HYDROcodone/ACETAMIN 5-325 MG* 1 TAB PO ONE (01:37)
--- NOTE | 2017-07-20 05:37 | ED ---
Eda Celaya Emily, scribed for Terry Cade MD on 07/20/17 at 0138 . Upper Extremity Pain - HPI Summary HPI Summary: This patient is a 37 year old F presenting to [facility] with a chief complaint of R ring finger pain that began two days ago. The patient rates the pain 9/10 in severity. Symptoms aggravated by nothing. Symptoms alleviated by nothing. Patient reports decrease in ROM and R ring finger swelling. Pt denies any trauma to the finger. Pt reports being a poorly compliant diabetic. - History of Current Complaint Chief Complaint: EDExtremityUpper Stated Complaint: RT HAND SWOLLEN Time Seen by Provider: 07/20/17 01:27 Hx Obtained From: Patient Hx Last Menstrual Period: IRREG , NOT SURE LAST PERIOD, Patient is on depo Onset/Duration: Started Days Ago, Still Present Timing: Constant Severity Initially: Severe Severity Currently: Severe Pain Location: Finger Aggravating Factor(s): Nothing Alleviating Factor(s): Nothing Associated Signs & Symptoms: Positive: Other - Positive decrease in ROM and swelling of R ring finger Related History: Dominant Hand Right - Allergies/Home Medications Allergies/Adverse Reactions: Allergies Allergy/AdvReac Type Severity Reaction Status Date / Time aspirin Allergy Vomiting Verified 07/20/17 01:11 chlorpromazine Allergy Swelling Verified 07/20/17 01:11 [From Thorazine] glipizide Allergy Blurred Verified 07/20/17 01:11 Vision PMH/Surg Hx/FS Hx/Imm Hx Previously Healthy: No Endocrine/Hematology History: Reports: Hx Diabetes Denies: Hx Anticoagulant Therapy Cardiovascular History: Reports: Hx Hypertension, Other Cardiovascular Problems/ Disorders - born with hole in heart, HX of mumur as child. Denies: Hx Pacemaker/ICD Respiratory History: Reports: Hx Asthma - As a child GI History: Reports: Other GI Disorders - IBS History: Denies: Hx Dialysis, Hx Renal Disease Musculoskeletal History: Denies: Hx Rheumatoid Arthritis, Hx Osteoporosis Sensory History: Denies: Hx Hearing Aid Neurological History: Reports: Hx Headaches Denies: Other Neuro Impairments/Disorders Psychiatric History: Reports: Hx Panic Disorder - Surgical History Surgery Procedure, Year, and Place: FATTY LIPOMA OF RIGHT AXILLIA NOV 2013 Infectious Disease History: No Infectious Disease History: Denies: Traveled Outside the [place] in Last 30 Days - Family History Known Family History: Positive: Diabetes - father - Social History Occupation: Unemployed Lives: With Family Alcohol Use: None Hx Substance Use: Yes Substance Use Type: Reports: Marijuana Substance Use Comment - Amount & Last Used: one week Hx Tobacco Use: Yes Smoking Status (MU): Light Every Day Tobacco Smoker Review of Systems Negative: Fever Positive: Decreased ROM, Edema, Other - Positive R ring finger swelling All Other Systems Reviewed And Are Negative: Yes Physical Exam - Summary Physical Exam Summary: Appearance: Well appearing, no pain distress Skin: warm, dry, reflects adequate perfusion, facial flushing Head/face: normal Eyes: EOMI, VELVET ENT: normal Neck: supple, non-tender Respiratory: CTA, breath sounds present Cardiovascular: RRR, pulses symmetrical Abdomen: non-tender, soft Bowel Sounds: present Musculoskeletal: Erythema and tenderness over the volar axis of the MCP of the ring finger of the right hand. No pain along the flexor tendon. No sausage digit. No pain with passive flexion. Neuro: normal, sensory motor intact, A&Ox3 Triage Information Reviewed: Yes Vital Signs On Initial Exam: Initial Vitals Temp Pulse Resp BP Pulse Ox 98.9 F 108 22 134/83 94 07/20/17 01:08 07/20/17 01:08 07/20/17 01:08 07/20/17 01:08 07/20/17 01:08 Vital Signs Reviewed: Yes Procedures - Splinting Location: R hand/wrist Pre-Made Type: velcro - volar Diagnostics - Vital Signs Vital Signs Temp Pulse Resp BP Pulse Ox 07/20/17 01:08 98.9 F 108 22 134/83 94 - Laboratory Lab Statement: Any lab studies that have been ordered have been reviewed, and results considered in the medical decision making process. - Radiology Finger XR Radiology Interpretation Completed By: ED Physician - Finger XR reveals, per ED physician, accessory os at the MCP of the right fourth finger. Course/Dx - Course Course Of Treatment: Pt with accessory os in area of discomfort. No other Knavel 's signs. Mild redness and tenderness right over area of os. Splinted here. NV intact. F/U with her ortho. - Diagnoses Provider Diagnoses: Arthralgia of right hand, Accessory center of ossification Discharge - Sign-Out/Discharge Documenting (check all that apply): Discharge - Discharge Plan Condition: Good Disposition: HOME Patient Education Materials: Osteoarthritis (ED) Forms: *Work Release Referrals: Isaiah Lazar MD [Medical Doctor] - Donny Rajan NP [Primary Care Provider] - Additional Instructions: Rest, ice, elevation and Aleve for discomfort. Splint for comfort. Call the orthopedist to follow up. take your insulin as ordered. Eat a diabetic diet. - Billing Disposition and Condition Condition: GOOD Disposition: HOME The documentation as recorded by the Eda gunter Emily accurately reflects the service I personally performed and the decisions made by me, Terry Cade MD.
--- NOTE | 2017-07-20 07:52 | RAD ---
HISTORY: Right ring finger MCP pain COMPARISONS: May 30, 2012 VIEWS: 3, Frontal, lateral, and oblique views of the fourth digit of the right hand FINDINGS: BONE DENSITY: Normal. BONES: There is no displaced fracture. There is an accessory ossicle at the level of the fourth proximal phalanx near the MCP joint. JOINTS: There is no arthropathy. ALIGNMENT: There is no dislocation. SOFT TISSUES: Unremarkable. OTHER FINDINGS: None. IMPRESSION: NO ACUTE OSSEOUS INJURY. ACCESSORY OSSICLE OF THE PROXIMAL PHALANX OF THE FOURTH DIGIT NEAR THE MCP JOINT. IF SYMPTOMS PERSIST, RECOMMEND REPEAT IMAGING.
== END 2017-07-20 02:51 | disposition home or self-care (01) ==
LOC: ED 01:03
DX: M79.644 Pain in right finger(s) (principal); M25.541 Pain in joints of right hand; F17.210 Nicotine dependence, cigarettes, uncomplicated; Z86.79 Personal history of other diseases of the circulatory system
CPT/HCPCS: 73140; 99282; A9270-GY

== ENCOUNTER 2017-09-04 00:35 | Emergency (ER) | payer OTHER ==
[2017-09-04] MEDS ORDERED: Albuterol/Ipratropium NEB.SOL* Albuterol 2.5 MG/Ipratropium 0.5 MG 3 ML INH ONE (01:21)
[2017-09-04] MEDS ORDERED: predniSONE TAB* 20 MG PO ONE (01:21)
--- NOTE | 2017-09-04 01:27 | ED ---
Respiratory - HPI Summary HPI Summary: Complains of sob at rest, cough, low-grade fever, nasal discharge, bilateral ear pain, lightheadedness 1 week. SOB worse with lying down, better with sitting up. Denies sore throat, CROWE, neck stiffness, CP, abdominal pain, N/V/D, change in urinary BM. Mild relief of symptoms with use of inhaler. States increased use of inhaler. Medical history is DM, chronic back pain, asthma, panic attacks. Positive smoker. Patient on DEPO shot. Denies estrogen supplements, recent surgery or trauma, history of blood clot, recent admission to the hospital. - History of Current Complaint Chief Complaint: EDGeneral Stated Complaint: COUGH Time Seen by Provider: 09/04/17 01:07 Hx Obtained From: Patient, Family/Research Associate Molecular Biology Onset/Duration: Gradual Onset Timing: Constant Initial Severity: Mild Current Severity: Moderate Pain Intensity: 6 Character: Cough (Nonproductive), Dyspnea at Rest, Dyspnea on Exertion, Orthopnea Sputum Amount: None Aggravating Factor(s): Exertion, Recumbent Position Alleviating Factor(s): MDI (Frequency Of Use), Upright Position, Rest Associated Signs and Symptoms: SOB, Nasal Congestion, Sinus Discomfort - Risk Factors Pulmonary Embolism Risk Factors: Smoking Cardiac Risk Factors: Smoking, Diabetes - Allergy/Home Medications Allergies/Adverse Reactions: Allergies Allergy/AdvReac Type Severity Reaction Status Date / Time aspirin Allergy Vomiting Verified 07/20/17 01:11 chlorpromazine Allergy Swelling Verified 07/20/17 01:11 [From Thorazine] glipizide Allergy Blurred Verified 07/20/17 01:11 Vision Home Medications: Home Medications Insulin Glargine,Hum.rec.anlog [[place] Phanikpen U-100] 100 units SQ BEDTIME [History Confirmed 09/04/17] Novolog 10 - 20 units SQ AC 09/04/17 [History Confirmed 09/04/17] PMH/Surg Hx/FS Hx/Imm Hx Endocrine/Hematology History: Reports: Hx Diabetes Denies: Hx Anticoagulant Therapy Cardiovascular History: Reports: Hx Hypertension, Other Cardiovascular Problems/ Disorders - born with hole in heart, HX of mumur as child. Denies: Hx Pacemaker/ICD Respiratory History: Reports: Hx Asthma - As a child GI History: Reports: Other GI Disorders - IBS History: Denies: Hx Dialysis, Hx Renal Disease Musculoskeletal History: Denies: Hx Rheumatoid Arthritis, Hx Osteoporosis Sensory History: Denies: Hx Hearing Aid Neurological History: Reports: Hx Headaches Denies: Other Neuro Impairments/Disorders Psychiatric History: Reports: Hx Panic Disorder - Surgical History Surgery Procedure, Year, and Place: FATTY LIPOMA OF RIGHT AXILLIA NOV 2013 Infectious Disease History: No Infectious Disease History: Denies: Traveled Outside the [place] in Last 30 Days - Family History Known Family History: Positive: Diabetes - father - Social History Alcohol Use: None Hx Substance Use: Yes Substance Use Type: Reports: Marijuana Substance Use Comment - Amount & Last Used: one week Hx Tobacco Use: Yes Smoking Status (MU): Current Every Day Smoker Review of Systems Constitutional: Negative Eyes: Negative Positive: Ear Ache, Nasal Discharge Cardiovascular: Negative Positive: Shortness Of Breath Gastrointestinal: Negative Genitourinary: Negative Musculoskeletal: Negative Skin: Negative Neurological: Negative Psychological: Normal All Other Systems Reviewed And Are Negative: Yes Physical Exam Triage Information Reviewed: Yes Vital Signs On Initial Exam: Initial Vitals Temp Pulse Resp BP Pulse Ox 98.6 F 108 20 135/94 95 09/04/17 00:36 09/04/17 00:36 09/04/17 00:36 09/04/17 00:36 09/04/17 00:36 Vital Signs Reviewed: Yes Appearance: Positive: Well-Appearing Skin: Positive: Warm Head/Face: Positive: Normal Head/Face Inspection Eyes: Positive: Normal ENT: Positive: Normal ENT inspection Neck: Positive: Supple Respiratory/Lung Sounds: Positive: Clear to Auscultation Cardiovascular: Positive: Normal Abdomen Description: Positive: Nontender Musculoskeletal: Positive: Normal Neurological: Positive: Normal Psychiatric: Positive: Normal AVPU Assessment: Alert - [place] Coma Scale Best Eye Response: 4 - Spontaneous Best Motor Response: 6 - Obeys Commands Best Verbal Response: 5 - Oriented Coma Scale Total: 15 Diagnostics - Vital Signs Vital Signs Temp Pulse Resp BP Pulse Ox 09/04/17 00:36 98.6 F 108 20 135/94 95 - Laboratory Result Diagrams: 09/04/17 01:41 09/04/17 01:41 Lab Statement: Any lab studies that have been ordered have been reviewed, and results considered in the medical decision making process. - Radiology cxr Xray Interpretation: No Acute Changes Radiology Interpretation Completed By: ED Physician - EKG 1 Cardiac Rate: Tachycardia EKG Rhythm: Sinus Rhythm ST Segment: Normal Ectopy: None Disposition - Course Course Of Treatment: Vital signs stable and within normal limits. Imaging unremarkable. Labs consistent with infection - Diagnoses Provider Diagnoses: Cough, Asthma exacerbation Discharge - Sign-Out/Discharge Documenting (check all that apply): Discharge/Admit/Transfer - Discharge Plan Condition: Stable Disposition: HOME Patient Education Materials: Bronchospasm (ED) Referrals: Donny Rajan NP [Primary Care Provider] - Additional Instructions: Follow-up with primary care. Return to the ED for any new or worsening symptoms - Billing Disposition and Condition Condition: STABLE Disposition: HOME
[2017-09-04 01:54] LABS: ABS Basophils 0.1 10^3/ul (0-0.2); ABS Eosinophils 0 10^3/ul (0-0.6); ABS Lymphocytes 2.5 10^3/ul (1.0-4.8); ABS Monocytes 1.2 10^3/ul (0-0.8); ABS Neutrophils 9.6 10^3/ul (1.5-7.7); ABS Nucleated RBC 0 10^3/ul; Eosinophil % 0.2 % (0-6); Hematocrit 43 % (35-47); Hemoglobin 14.8 g/dl (12.0-16.0); Lymphocyte % 18.9 % (25-47); Mean Corpuscular HGB Conc 34 g/dl (31-36); Mean Corpuscular Hemoglobin 29 pg (27-31); Mean Corpuscular Volume 86 fL (80-97); Mean Platelet Volume 7.7 um3 (7.4-10.4); Nucleated Red Blood Cells % 0; Platelet Count 318 10^3/ul (150-450); Red Blood Count 5.06 10^6/ul (4.0-5.4); Red Cell Distribution Width 13 % (10.5-15); White Blood Count 13.5 10^3/ul (3.5-10.8)
[2017-09-04 02:11] LABS: EGFR Non-African American 86.5 (>60)
[2017-09-04] MEDS ORDERED: Azithromycin TAB* 250 MG PO ONE (02:24)
[2017-09-04 02:45] VITALS: BP 127/79
--- NOTE | 2017-09-04 08:07 | RAD ---
HISTORY: Shortness of breath, cough, congestion COMPARISONS: July 19, 2016 VIEWS: 4: Frontal dual-energy and lateral views of the chest. FINDINGS: CARDIOMEDIASTINAL SILHOUETTE: The cardiomediastinal silhouette is normal. KING: The king are normal. PLEURA: The costophrenic angles are sharp. No pleural abnormalities are noted. LUNG PARENCHYMA: The lungs are clear. ABDOMEN: The upper abdomen is clear. There is no subphrenic gas. BONES AND SOFT TISSUES: No bone or soft tissue abnormalities are noted. OTHER: None. IMPRESSION: NO ACTIVE CARDIOPULMONARY DISEASE.
== END 2017-09-04 02:44 | disposition home or self-care (01) ==
LOC: ED 00:35
DX: J45.901 Unspecified asthma with (acute) exacerbation (principal); F17.200 Nicotine dependence, unspecified, uncomplicated; Z88.8 Allergy status to other drugs, medicaments and biological substances; Z88.6 Allergy status to analgesic agent
CPT/HCPCS: 36415; 71046; 80053; 82550; 83605; 83880; 85025; 93005; 99282; A9270-GY; J7512

== ENCOUNTER 2017-10-16 00:37 | Emergency (ER) | payer OTHER ==
[2017-10-16] MEDS ORDERED: Silver Sulfadiazine 1%* 20 GM TOPICAL ONE (01:09)
--- NOTE | 2017-10-16 01:40 | ED ---
Skin Complaint - HPI Summary HPI Summary: Patient is a 37-year-old female who presents emergency department for evaluation of a burn to her right forearm that occurred several days ago. Patient states she burned her right forearm on hot oil is concerned may be getting infected. She is a history of diabetes. Patient states area has continued to be red and she does not feel it is healing properly. No associate symptoms of fever, chills, nausea, vomiting, purulent drainage. Symptoms are mild in severity. Touching area makes symptoms worse. Rest makes symptoms better. - History of Current Complaint Chief Complaint: EDRashSkinAbscess Time Seen by Provider: 10/16/17 00:59 Stated Complaint: BURN ON RIGHT ARM Hx Obtained From: Patient Hx Last Menstrual Period: IRREG , NOT SURE LAST PERIOD, Patient is on depo Pain Intensity: 0 - Allergy/Home Medications Allergies/Adverse Reactions: Allergies Allergy/AdvReac Type Severity Reaction Status Date / Time aspirin Allergy Vomiting Verified 10/16/17 00:43 chlorpromazine Allergy Swelling Verified 10/16/17 00:43 [From Thorazine] glipizide Allergy Blurred Verified 10/16/17 00:43 Vision PMH/Surg Hx/FS Hx/Imm Hx Previously Healthy: Yes Endocrine/Hematology History: Reports: Hx Diabetes Denies: Hx Anticoagulant Therapy Cardiovascular History: Reports: Hx Hypertension, Other Cardiovascular Problems/ Disorders - born with hole in heart, HX of mumur as child. Denies: Hx Pacemaker/ICD Respiratory History: Reports: Hx Asthma - As a child Denies: Hx Chronic Obstructive Pulmonary Disease (COPD) GI History: Reports: Other GI Disorders - IBS History: Denies: Hx Dialysis, Hx Renal Disease Musculoskeletal History: Denies: Hx Rheumatoid Arthritis, Hx Osteoporosis Sensory History: Denies: Hx Hearing Aid Neurological History: Reports: Hx Headaches Denies: Other Neuro Impairments/Disorders Psychiatric History: Reports: Hx Panic Disorder - Surgical History Surgery Procedure, Year, and Place: FATTY LIPOMA OF RIGHT AXILLIA NOV 2013 Infectious Disease History: No Infectious Disease History: Denies: Traveled Outside the [place] in Last 30 Days - Family History Known Family History: Positive: Diabetes - father - Social History Occupation: Employed Full-time Lives: With Family Alcohol Use: None Hx Substance Use: Yes Substance Use Type: Reports: Marijuana Substance Use Comment - Amount & Last Used: one week Hx Tobacco Use: Yes Smoking Status (MU): Current Every Day Smoker Review of Systems Constitutional: Negative Positive: Other - Burn to right arm. All Other Systems Reviewed And Are Negative: Yes Physical Exam Triage Information Reviewed: Yes Vital Signs On Initial Exam: Initial Vitals Temp Pulse Resp BP Pulse Ox 97.6 F 103 18 157/79 97 10/16/17 00:39 10/16/17 00:39 10/16/17 00:39 10/16/17 00:39 10/16/17 00:39 Vital Signs Reviewed: Yes Appearance: Positive: Well-Appearing - Pt. lying in bed in NAD. Significant other present. Skin: Positive: Other - Numerous, small areas of superifical nguyen noted to the right forearm. No surrounding erythema. No purulent drainage. No induration or fluctuance. Head/Face: Positive: Normal Head/Face Inspection Eyes: Positive: Normal Neck: Positive: Supple Neurological: Positive: Normal, CN Intact II-III Psychiatric: Positive: Affect/Mood Appropriate Diagnostics - Vital Signs Vital Signs Temp Pulse Resp BP Pulse Ox 10/16/17 00:39 97.6 F 103 18 157/79 97 - Laboratory Lab Statement: Any lab studies that have been ordered have been reviewed, and results considered in the medical decision making process. Course/Dx - Course Course Of Treatment: Pt. presenting for evaluation of first degree burn to right arm from hot oil. No surrounding cellulitis noticed or purulent drainage. Silvadene cream applied in ER and rx sent. Advised closed f.u with PCP for wound check. To return to ER for fever, redness, or purulent drainage. Pt. understands and agrees with plan. - Differential Diagnoses - Skin Complaint Differential Diagnoses: Cellulitis - Diagnoses Provider Diagnoses: Superficial burn Discharge - Sign-Out/Discharge Documenting (check all that apply): Discharge/Admit/Transfer - Discharge Plan Condition: Good Disposition: HOME Prescriptions: Silver Sulfadiazine 1%* [SILVadine 1%*] 1 applic TOPICAL BID #60 tube Patient Education Materials: Superficial Burn (ED) Referrals: Donny Rajan NP [Primary Care Provider] - Additional Instructions: Schedule a follow up appointment with PCP for wound check Use cream as directed Keep area clean and dry Return to ER for increased redness, purulent drainage or if concerned - Billing Disposition and Condition Condition: GOOD Disposition: Home
[2017-10-16 02:06] VITALS: BP 120/63
== END 2017-10-16 02:03 | disposition home or self-care (01) ==
LOC: ED 00:37
DX: T22.111A Burn of first degree of right forearm, initial encounter (principal); X10.2XXA Contact with fats and cooking oils, initial encounter; Y92.9 Unspecified place or not applicable; E11.9 Type 2 diabetes mellitus without complications; F17.200 Nicotine dependence, unspecified, uncomplicated; Z88.3 Allergy status to other anti-infective agents; Z88.8 Allergy status to other drugs, medicaments and biological substances
CPT/HCPCS: 99281; A9270-GY

== ENCOUNTER 2017-10-21 00:51 | Emergency (ER) | payer OTHER ==
[2017-10-21] MEDS ORDERED: NS 0.9% 1000 ML* 2,000 ML IV ONE (01:12)
[2017-10-21] MEDS ORDERED: Metoclopramide IV* 5 MG/ML 2 ML VIAL IV SLOW PU ONE (01:13)
[2017-10-21 01:57] LABS: ABS Basophils 0.1 10^3/ul (0-0.2); ABS Eosinophils 0.1 10^3/ul (0-0.6); ABS Lymphocytes 3.3 10^3/ul (1.0-4.8); ABS Neutrophils 7.8 10^3/ul (1.5-7.7); ABS Nucleated RBC 0 10^3/ul; Eosinophil % 0.8 % (0-6); Hematocrit 42 % (35-47); Hemoglobin 13.9 g/dl (12.0-16.0); Mean Corpuscular HGB Conc 33 g/dl (31-36); Mean Corpuscular Hemoglobin 29 pg (27-31); Mean Corpuscular Volume 87 fL (80-97); Nucleated Red Blood Cells % 0.1; Platelet Count 325 10^3/ul (150-450); Red Blood Count 4.84 10^6/ul (4.00-5.40); Red Cell Distribution Width 14 % (10.5-15); White Blood Count 12.3 10^3/ul (3.5-10.8)
[2017-10-21 02:16] LABS: EGFR Non-African American 90.7 (>60)
[2017-10-21 02:43] LABS: Urine Appearance Cloudy; Urine Blood Negative (Negative); Urine Color Yellow; Urine Ketones Negative (Negative); Urine Protein 1+(30 mg/dL) (Negative); Urine Specific Gravity 1.028 (1.010-1.030); Urine Urobilinogen Negative (Negative)
[2017-10-21] MEDS ORDERED: Insulin REGULAR(*) 1 UNITS UNIT IV PUSH ONE (02:45)
[2017-10-21 03:26] VITALS: BP 148/104
--- NOTE | 2017-10-21 03:31 | ED ---
Ana Celaya Jade, scribed for Gallito Chowdary MD on 10/21/17 at 0117 . Complex/Multi-Sys Presentation - HPI Summary HPI Summary: Pt is a 37 y/o female who presents to the ED c/o dehydration. She states she has been sweating in the heat a lot recently, and constantly feels thirsty. Pt also c/o generalized weakness, joint aches, muscle aches, lightheadedness, nausea, and inability to tolerate fluids. She denies any sore throat, diarrhea, or vomiting. Pt is a diabetic, and states her blood sugar was 200 tonight after not eating dinner. - History Of Current Complaint Chief Complaint: EDGeneral Time Seen by Provider: 10/21/17 01:04 Hx Obtained From: Patient Onset/Duration: Gradual Onset, Lasting Days - 2, Still Present Timing: Constant Severity Currently: Mild - 2/10 Aggravating Factor(s): heat Associated Signs And Symptoms: Positive: Weakness, Nausea. Negative: Vomiting, Diarrhea - Allergies/Home Medications Allergies/Adverse Reactions: Allergies Allergy/AdvReac Type Severity Reaction Status Date / Time aspirin Allergy Vomiting Verified 10/21/17 00:52 chlorpromazine Allergy Swelling Verified 10/21/17 00:52 [From Thorazine] glipizide Allergy Blurred Verified 10/21/17 00:52 Vision PMH/Surg Hx/FS Hx/Imm Hx Endocrine/Hematology History: Reports: Hx Diabetes Denies: Hx Anticoagulant Therapy Cardiovascular History: Reports: Hx Hypertension, Other Cardiovascular Problems/ Disorders - born with hole in heart, HX of mumur as child. Denies: Hx Pacemaker/ICD Respiratory History: Reports: Hx Asthma - As a child Denies: Hx Chronic Obstructive Pulmonary Disease (COPD) GI History: Reports: Other GI Disorders - IBS History: Denies: Hx Dialysis, Hx Renal Disease Musculoskeletal History: Denies: Hx Rheumatoid Arthritis, Hx Osteoporosis Sensory History: Denies: Hx Hearing Aid Neurological History: Reports: Hx Headaches Denies: Other Neuro Impairments/Disorders Psychiatric History: Reports: Hx Panic Disorder - Surgical History Surgery Procedure, Year, and Place: FATTY LIPOMA OF RIGHT AXILLIA NOV 2013 Infectious Disease History: No Infectious Disease History: Denies: Traveled Outside the [place] in Last 30 Days - Family History Known Family History: Positive: Diabetes - father - Social History Alcohol Use: None Hx Substance Use: Yes Substance Use Type: Reports: Marijuana Substance Use Comment - Amount & Last Used: one week Hx Tobacco Use: Yes Smoking Status (MU): Current Every Day Smoker Review of Systems Positive: Other - Generalized weakness, inability to tolerate fluids Negative: Sore Throat Positive: Nausea. Negative: Vomiting, Diarrhea Positive: Arthralgia, Myalgia Neurological: Other - Lightheadedness All Other Systems Reviewed And Are Negative: Yes Physical Exam - Summary Physical Exam Summary: VITAL SIGNS: Reviewed. GENERAL: Patient is a well-developed and nourished FEMALE who is lying comfortable in the stretcher. Patient is not in any acute respiratory distress. HEAD AND FACE: No signs of trauma. No ecchymosis, hematomas or skull depressions. No sinus tenderness. EYES: PERRLA, EOMI x 2, No injected conjunctiva, no nystagmus. EARS: Hearing grossly intact. Ear canals and tympanic membranes are within normal limits. MOUTH: Oropharynx within normal limits. NECK: Supple, trachea is midline, no adenopathy, no JVD, no carotid bruit, no c- spine tenderness, neck with full ROM. CHEST: Symmetric, no tenderness at palpation LUNGS: Clear to auscultation bilaterally. No wheezing or crackles. CVS: Regular rate and rhythm, S1 and S2 present, no murmurs or gallops appreciated. ABDOMEN: Soft, non-tender. No signs of distention. No rebound no guarding, and no masses palpated. Bowel sounds are normal. EXTREMITIES: FROM in all major joints, no edema, no cyanosis or clubbing. NEURO: Alert and oriented x 3. No acute neurological deficits. Speech is normal and follows commands. SKIN: Dry and warm Triage Information Reviewed: Yes Vital Signs On Initial Exam: Initial Vitals Temp Pulse Resp BP Pulse Ox 97.6 F 104 18 164/101 97 10/21/17 00:52 10/21/17 00:52 10/21/17 00:52 10/21/17 00:52 10/21/17 00:52 Vital Signs Reviewed: Yes Diagnostics - Vital Signs Vital Signs Temp Pulse Resp BP Pulse Ox 10/21/17 00:52 97.6 F 104 18 164/101 97 - Laboratory Result Diagrams: 10/21/17 01:30 10/21/17 01:30 Lab Statement: Any lab studies that have been ordered have been reviewed, and results considered in the medical decision making process. Complex Multi-Symp Course/Dx Course Of Treatment: Pt is a 37 y/o female c/o dehydration after being in the heat a lot recently. She c/o generalized weakness, joint aches, muscle aches, lightheadedness, nausea, constant thirst, and inability to tolerate fluids. She denies any sore throat, diarrhea, or vomiting. A physical exam was normal. Final dx is heat exhaustion. Pt is discharged home, and is agreeable with this plan. - Diagnoses Provider Diagnoses: Heat exhaustion Discharge - Sign-Out/Discharge Documenting (check all that apply): Discharge/Admit/Transfer - Discharge - Discharge Plan Condition: Stable Disposition: HOME Patient Education Materials: Heat Exhaustion (ED) Referrals: Donny Rajan [employer] [Primary Care Provider] - 2 Days Additional Instructions: RETURN TO THE EMERGENCY DEPARTMENT FOR CHANGING OR WORSENING SYMPTOMS The documentation as recorded by the Ana gunter Jade accurately reflects the service I personally performed and the decisions made by , Gallito Chowdary MD.
== END 2017-10-21 03:15 | disposition home or self-care (01) ==
LOC: ED 00:51
DX: T67.5XXA Heat exhaustion, unspecified, initial encounter (principal); X30.XXXA Exposure to excessive natural heat, initial encounter; Y92.9 Unspecified place or not applicable; E11.9 Type 2 diabetes mellitus without complications; F17.200 Nicotine dependence, unspecified, uncomplicated; Z88.6 Allergy status to analgesic agent; Z88.8 Allergy status to other drugs, medicaments and biological substances
CPT/HCPCS: 36415; 80053; 81003; 81015; 82150; 82550; 83605; 83690; 83735; 84702; 85025; 86140; 87086; 96361; 96372; 96374; 99283; J2765

== ENCOUNTER 2017-11-22 12:10 | Emergency (ER) | payer OTHER ==
[2017-11-22] MEDS ORDERED: Ondansetron ODT TAB* 4 MG SL ONE (12:58)
[2017-11-22] MEDS ORDERED: Ketorolac INJ* 60 MG/2 ML VIAL IM ONE (12:58)
[2017-11-22] MEDS ORDERED: diPHENhydraMINE PO* 50 MG PO ONE (12:59)
[2017-11-22] MEDS ORDERED: Butalb/Acetamin/Caff TAB* 1 TAB PO ONE (13:05)
[2017-11-22 14:29] VITALS: BP 131/89
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
== END 2017-11-22 14:27 | disposition home or self-care (01) ==
LOC: ED 12:10
DX: G43.909 Migraine, unspecified, not intractable, without status migrainosus (principal)
CPT/HCPCS: 96372; 99283; A9270-GY; J1885

== ENCOUNTER 2017-11-23 20:20 | Emergency (ER) | payer OTHER ==
[2017-11-23] MEDS ORDERED: Metoclopramide IV* 5 MG/ML 2 ML VIAL IV ONE (20:35)
[2017-11-23] MEDS ORDERED: diPHENhydraMINE PO* 50 MG PO ONE (20:35)
[2017-11-23] MEDS ORDERED: NS 0.9% 1000 ML* 1,000 ML IV ONE (20:35)
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
[2017-11-23] MEDS ORDERED: diPHENhydraMINE IV* 50 MG/ML 1 ml VIAL (BENADRYL) ONE (20:48)
[2017-11-23] MEDS ORDERED: diPHENhydraMINE IV* 50 MG/ML 1 ml VIAL (BENADRYL) IV ONE (21:22)
[2017-11-23] MEDS ORDERED: Morphine INJ* 2 MG/ML 1 ML SYRINGE (TWO MG - NEW SYRINGE VERSION) IV ONE (23:20)
--- NOTE | 2017-11-24 00:21 | ED ---
Progress - Progress Note Progress Note: This is jani Morales documenting for Dr. Gallito Chowdary MD. Received sign out from Dr. Atkins. Pt received morphine in ED course and feels better. Pt diagnosed with headache and discharged home. Pt is agreeable with this plan. Course/Dx - Course Course Of Treatment: Received sign out from Dr. Atkins. Pt received morphine in ED course and feels better. Pt diagnosed with headache and discharged home. Pt is agreeable with this plan. - Diagnoses Provider Diagnoses: Migraine headache Discharge - Sign-Out/Discharge Documenting (check all that apply): Patient Departure - Discharge Receiving patient FROM: Avila Atkins - Discharge Plan Condition: Stable Disposition: HOME Patient Education Materials: Migraine Headache (ED) Referrals: Donny Rajan NP [Primary Care Provider] - 3 Days Additional Instructions: RETURN TO THE EMERGENCY DEPARTMENT FOR CHANGING OR WORSENING SYMPTOMS.
[2017-11-24 00:46] VITALS: BP 156/94
== END 2017-11-24 00:44 | disposition home or self-care (01) ==
LOC: ED 20:20
DX: G43.909 Migraine, unspecified, not intractable, without status migrainosus (principal); R42 Dizziness and giddiness; Z88.6 Allergy status to analgesic agent; Z88.8 Allergy status to other drugs, medicaments and biological substances; Z83.3 Family history of diabetes mellitus; F17.200 Nicotine dependence, unspecified, uncomplicated
CPT/HCPCS: 96374; 96375; 99282; J1200; J2270; J2765

== ENCOUNTER 2017-12-12 19:21 | Emergency (ER) | payer OTHER ==
[2017-12-12] MEDS ORDERED: Ketorolac INJ* 30 MG/ML 1 ML VIAL IV PUSH ONE (21:45)
--- NOTE | 2017-12-12 21:45 | ED ---
HPI Chest Pain - HPI Summary HPI Summary: 37 year old F presenting to [facility] accompanied by complains of midsternal chest pain that began at [address]. She describes the pain as tightness/squeezing and as waxing and waning. The patient rates the pain 6/10 in severity. Symptoms aggravated by nothing. Symptoms alleviated by stretching her back. Patient reports fatigue, chills, dizziness, lightheadedness. Patient denies shortness of breath, vomiting, nausea, and diaphoresis. 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 Is a smoker. - History of Current Complaint Chief Complaint: EDChestPainROMI Time Seen by Provider: 12/12/17 21:32 Hx Obtained From: Patient Hx Last Menstrual Period: IRREG , NOT SURE LAST PERIOD, Patient is on depo Onset/Duration: Started Hours Ago - 16:00 today, Still Present Current Severity: Moderate Pain Intensity: 6 Pain Scale Used: 0-10 Numeric Chest Pain Location: Mid Sternal Character: Pressure/Squeezing, Tightness Aggravating Factor(s): Nothing Alleviating Factor(s): Other: - stretching her back Associated Signs and Symptoms: Positive: Negative - shortness of breath, vomiting, nausea, and diaphoresis, Other: - reports fatigue, chills, dizziness, lightheadedness - Allergy/Home Medications Allergies/Adverse Reactions: Allergies Allergy/AdvReac Type Severity Reaction Status Date / Time aspirin Allergy Vomiting Verified 11/23/17 20:23 chlorpromazine Allergy Swelling Verified 11/23/17 20:23 [From Thorazine] glipizide Allergy Blurred Verified 11/23/17 20:23 Vision PMH/Surg Hx/FS Hx/Imm Hx Previously Healthy: No Endocrine/Hematology History: Reports: Hx Diabetes Denies: Hx Anticoagulant Therapy Cardiovascular History: Reports: Hx Hypertension, Other Cardiovascular Problems/ Disorders - born with hole in heart, HX of mumur as child. Denies: Hx Pacemaker/ICD Respiratory History: Reports: Hx Asthma - As a child Denies: Hx Chronic Obstructive Pulmonary Disease (COPD) GI History: Reports: Other GI Disorders - IBS History: Denies: Hx Dialysis, Hx Renal Disease Musculoskeletal History: Reports: Other Musculoskeletal History - chronic back pain Denies: Hx Rheumatoid Arthritis, Hx Osteoporosis Neurological History: Reports: Hx Headaches, Hx Migraine Denies: Other Neuro Impairments/Disorders Psychiatric History: Reports: Hx Panic Disorder - Surgical History Surgery Procedure, Year, and Place: FATTY LIPOMA OF RIGHT AXILLIA NOV 2013 Infectious Disease History: No Infectious Disease History: Denies: Traveled Outside the [place] in Last 30 Days - Family History Known Family History: Positive: Diabetes - father - Social History Alcohol Use: None Hx Substance Use: Yes Substance Use Type: Reports: Marijuana Substance Use Comment - Amount & Last Used: one week Hx Tobacco Use: Yes Smoking Status (MU): Current Every Day Smoker Type: Cigarettes Amount Used/How Often: 1 PPD Review of Systems Positive: Chills, Fatigue. Negative: Skin Diaphoresis Positive: Chest Pain Negative: Shortness Of Breath Negative: Vomiting, Nausea Neurological: Other - dizziness, lightheadedness All Other Systems Reviewed And Are Negative: Yes Physical Exam - Summary Physical Exam Summary: Appearance: Well-appearing, Well-nourished, lying in bed comfortably Skin: Warm, dry, no obvious rash Eyes: sclera anicteric, no conjunctival pallor ENT: mucous membranes moist, pharynx appears normal Neck: Supple, nontender Respiratory: Clear to auscultation, no signs of respiratory distress Cardiovascular: Normal S1, S2. No murmurs. Normal distal pulses in tibial and radial bilaterally. Abdomen: Soft, nontender, normal active bowel sounds present Musculoskeletal: Normal, Strength/ROM Intact Neurological: A&Ox3, awake and alert, mentation is normal, speech is fluent and appropriate Psychiatric: affect is normal, does not appear anxious or depressed Triage Information Reviewed: Yes Vital Signs On Initial Exam: Initial Vitals Temp Pulse Resp BP Pulse Ox 98.3 F 111 20 127/90 96 12/12/17 19:24 12/12/17 19:24 12/12/17 19:24 12/12/17 19:24 12/12/17 19:24 Vital Signs Reviewed: Yes Diagnostics - Vital Signs Vital Signs Temp Pulse Resp BP Pulse Ox 12/12/17 19:24 98.3 F 111 20 127/90 96 - Laboratory Result Diagrams: 12/12/17 21:58 12/12/17 21:58 Lab Statement: Any lab studies that have been ordered have been reviewed, and results considered in the medical decision making process. - EKG 1931 Cardiac Rate: Tachycardia - 101 BPM EKG Rhythm: Sinus Tachycardia EKG Interpretation: Normal EKG Chest Pain Course/Dx - Diagnoses Provider Diagnoses: Chest pain Discharge - Sign-Out/Discharge Documenting (check all that apply): Patient Departure - Discharge Plan Condition: Good Disposition: HOME Patient Education Materials: Chest Pain (ED) Forms: *Work Release Referrals: Donny Rajan NP [Primary Care Provider] - 3 Days - Billing Disposition and Condition Condition: GOOD Disposition: Home - Attestation Statements Document Initiated by Scribe: Yes Documenting Scribe: Penny Raymundo Provider For Whom Christina is Documenting (Include Credential): Avila Boucher MD Scribe Attestation: Penny Celaya scribed for Avila Boucher MD on 12/14/17 at 0207. Scribe Documentation Reviewed: Yes Provider Attestation: The documentation as recorded by the Penny gunter accurately reflects the service I personally performed and the decisions made by me, Avila Boucher MD
[2017-12-12 22:07] LABS: ABS Basophils 0.1 10^3/ul (0-0.2); ABS Eosinophils 0.1 10^3/ul (0-0.6); ABS Lymphocytes 3.3 10^3/ul (1.0-4.8); ABS Monocytes 0.7 10^3/ul (0-0.8); ABS Neutrophils 5.8 10^3/ul (1.5-7.7); ABS Nucleated RBC 0 10^3/ul; Eosinophil % 0.9 % (0-6); Hematocrit 45 % (35-47); Hemoglobin 15.2 g/dl (12.0-16.0); Lymphocyte % 33.1 % (25-47); Mean Corpuscular HGB Conc 34 g/dl (31-36); Mean Corpuscular Hemoglobin 29 pg (27-31); Mean Corpuscular Volume 87 fL (80-97); Mean Platelet Volume 8.3 um3 (7.4-10.4); Nucleated Red Blood Cells % 0; Platelet Count 295 10^3/ul (150-450); Red Blood Count 5.17 10^6/ul (4.00-5.40); Red Cell Distribution Width 13 % (10.5-15); White Blood Count 10.1 10^3/ul (3.5-10.8)
[2017-12-12 22:24] LABS: EGFR Non-African American 93.6 (>60)
[2017-12-13 02:54] VITALS: BP 128/79
--- NOTE | 2017-12-13 09:38 | RAD ---
Indication: Sternal chest pain. History of cardiac murmur and tobacco use. Comparison: September 04, 2017 Technique: Upright AP 2152 hours Report: Clear lungs and pleural spaces. Negative for pneumothorax. The heart, pulmonary vasculature, and mediastinal contours are unremarkable. Unremarkable osseous structures and soft tissue contours. IMPRESSION: #. No evidence for acute intrathoracic disease. R1
== END 2017-12-13 02:52 | disposition home or self-care (01) ==
LOC: ED 19:21
DX: R07.9 Chest pain, unspecified (principal); R53.83 Other fatigue; F17.210 Nicotine dependence, cigarettes, uncomplicated; R11.2 Nausea with vomiting, unspecified; R06.02 Shortness of breath; Z87.891 Personal history of nicotine dependence
CPT/HCPCS: 36415; 71045; 80053; 84484; 85025; 93005; 96374; 99283; J1885

== ENCOUNTER 2018-04-16 20:08 | Emergency (ER) | payer OTHER ==
--- OUTSIDE RECORDS SUMMARY | 2018-04-16 20:21 | XMS REPORT | Continuity of Care Document ---
:1980 External Reference #:[id number] Author Name Alyssia Hernandez Care Team Providers Name Role Phone Kiki Shaikh MD Primary Care Physician Unavailable Payers Type Date Identification Numbers Payment Provider Subscriber Effective: 2010 Policy Number: [id number] Drew Espino Group Number: [id number] [address] PayID: [id number] [place] [address] Advance Directives Description No Information Available Problems Date Description Provider Status Onset: 10/27/2016 Type 2 diabetes mellitus Donny Rajan NP Active Family History Date Family Member(s) Problem(s) Comments General Cancer General Diabetes, Insulin Dependent General Mental Illness Father Diabetes Lung issues Mother Hx unknown Social History Type Date Description Comments Sex Unknown Marital Status Significant Other Female Occupation Unemployed Tobacco Use Start: Unknown Never Smoked Cigars Tobacco Use Start: Unknown Never Smoked A Pipe Smokeless Tobacco Never Used Smokeless Tobacco ETOH Use Denies alcohol use Tobacco Use Start: Unknown Heavy tobacco smoker Smokes 1/2-1.5 ppd; (more than 10 Started age 9; quit cigarettes/day) a few times Recreational Drug Use Current Drug User Marijuana frequently Smoking Status Reviewed: 03/27/18 Heavy tobacco smoker Smokes 1/2-1.5 ppd; (more than 10 Started age 9; quit cigarettes/day) a few times Exercise Type/Frequency Exercises regularly Allergies, Adverse Reactions, Alerts Date Description Reaction Status Severity Comments 06/29/2012 Aspirin Active 06/29/2012 Glipizide Active 06/29/2012 Thorazine Active 10/24/2016 Metformin GI upset Active Moderate 10/24/2016 Janumet GI upset Active Moderate 08/29/2017 Meloxicam Active Medications Medication Date Status Form Strength Qnty SIG Indications Ordering Provider Cyclobenzaprine 03/27 Active Tablets 5mg 30tab one by M54.31 Donnykacey ARZATE s mouth three Satinder, ELECTRIC SEALING MACHINE OPERATOR times a day as needed spasm Hydrocodone-Acet 03/27 Active Tablets 7.5-325mg 21tab 1 tablet M54.31 Donny aminophen s three times Satinder, ELECTRIC SEALING MACHINE OPERATOR daily as needed Fluconazole 05/23 Active Tablets 150mg 3tabs one by B37.9 Donny mouth august Satinder, ELECTRIC SEALING MACHINE OPERATOR repeat in 3 days as needed Tramadol HCL 05/23 Active Tablets 50mg 42tab 1-2 tablets M79.644 Donny s every 8 Satinder, ELECTRIC SEALING MACHINE OPERATOR hours as needed for pain. Fluticasone 05/23 Active Suspension 50mcg/Act 16uni Instill 2 H69.90 Donny Propionate ts Sprays In Satinder, ELECTRIC SEALING MACHINE OPERATOR Each Nostril Daily Pen Bauxite 01/30 Active Misc 31G X 5 100un use with Donny mm its basaglar Satinder, ELECTRIC SEALING MACHINE OPERATOR and novolog subq everyday Baclofen 01/30 Active Tablets 10mg 60tab Take 04/22 M54.2 Donny s Tablet By Satinder, ELECTRIC SEALING MACHINE OPERATOR Mouth Every 8 Hours as Needed For Muscle Spasm Ventolin HFA 10/24 Active Aerosol 108(90Bas 8gm 2 puffs by R06.02 Donny e) mouth four Satinder, ELECTRIC SEALING MACHINE OPERATOR mcg/Act times a day as needed Onetouch Ultra 2 Active Kit w/Device 1unit check blood Donny / s sugar 3 Satinder, ELECTRIC SEALING MACHINE OPERATOR times daily and as needed Onetouch Delica Active Misc 30G 200un test three Donny Lancets Fine 30G /0000 its times daily Satinder, ELECTRIC SEALING MACHINE OPERATOR or as needed Onetouch Ultra 00 Active Strips 150un test up to E11.9 Donny Blue /0000 its three times Satinder, ELECTRIC SEALING MACHINE OPERATOR a day or as directed Melatonin 00 Active Capsules 5mg 1-2 by Unknown /0000 mouth every night Benadryl Allergy Active Tablets 25mg 1-2 tabs at Unknown /0000 bedtime prn Basaglar Kwikpen Active Solution 100Unit/M Inject 100 Unknown /0000 Pen-Inject L Units Subcutaneou sly Every Day Novolog Flexpen Active Solution 100Unit/M Inject Unknown /0000 Pen-Inject L 10-20 Units Before Meals Subcutaneou s Three Times A Day Meloxicam 05/23 Hx Tablets 7.5mg 30tab Take 1 To 2 M79.644 s Tablets By MARKY Rajan - Mouth Every 08/28 Day Needed Lantus 10/24 Hx Solution 100Unit/M 30ml 75 units sc L at bedtime MARKY Rajan - 01/30 Fluconazole 10/24 Hx Tablets 150mg 2tabs one by Donny mouth august MARKY Rajan - repeat in 3 01/30 days needed Cortizone-10 06/29 Hx Ointment 1% 1unit apply as 380.23 Christophe /2012 s directed R[place]lia - one per day , M.DCameron 10/24 Humalog / Hx Solution 100Unit/M 1vial sliding Unknown /0000 L scale 3 - times daily 01/30 Tylenol/Codeine Hx Tablets 300-30mg 20tab 1-2 po q Unknown #3 /0000 s 4-6 hr prn - pain 10/[address] 60mg 90cap 1 po qd Unknown /0000 Part s - 10/24 Lisinopril 0000 Hx Tablets 5mg 90tab 1 po qd Unknown /0000 s - 10/24 Ibuprofen 00/00 Hx Tablets 200mg as needed Unknown /0000 - 03/27 Medications Administered in Office Medication Date Status Form Strength Qnty SIG Indications Ordering Provider Depomedrol Administered Injection Isaiah 40MG Paul Lazar MD Celestone 3 mg Administered Injection Isaiah and 3mg 018 MD Nagi Immunizations Description No Information Available Vital Signs Date Vital Result Comment 03/27/2018 1:41pm Height 62.5 inches 5'2.50" Weight 218.00 lb Heart Rate 110 /min BP Systolic 111 mmHg BP Diastolic 73 mmHg O2 % BldC Oximetry 94 % BMI (Body Mass Index) 39.2 kg/m2 08/29/2017 10:48am Height 62.5 inches 5'2.50" Weight 221.00 lb Heart Rate 81 /min BP Systolic 148 mmHg BP Diastolic 80 mmHg Respiratory Rate 12 /min Body Temperature 97.3 F Pain Level 7 BMI (Body Mass Index) 39.8 kg/m2 05/30/2017 10:44am Height 62.5 inches 5'2.50" Weight 212.00 lb per pt Heart Rate 84 /min reg Pain Level 8 right thumb BMI (Body Mass Index) 38.2 kg/m2 05/23/2017 10:54am Weight 212.50 lb Heart Rate 87 /min BP Systolic 128 mmHg BP Diastolic 80 mmHg Body Temperature 97.4 F O2 % BldC Oximetry 96 % 01/30/2017 10:37am Weight 203.00 lb Heart Rate 110 /min BP Systolic Sitting 130 mmHg BP Diastolic Sitting 80 mmHg O2 % BldC Oximetry 97 % 10/24/2016 8:59am Height 62.5 inches 5'2.50" Weight 198.00 lb Heart Rate 85 /min BP Systolic Sitting 124 mmHg BP Diastolic Sitting 80 mmHg O2 % BldC Oximetry 96 % BMI (Body Mass Index) 35.6 kg/m2 06/29/2012 10:47am Heart Rate 86 /min BP Systolic Sitting 122 mmHg BP Diastolic Sitting 86 mmHg Results Test Date Facility Test Result H/L Range Note Laboratory test 12/13/2017 [facility] Troponin-I 0.00 ng/mL < 0.[address] (TnI) [place] [address] [phone] CBC Auto Diff 12/12/2017 [facility] White Blood 10.1 10^3/uL N 3.5-10.[address] [place] [address] [phone] Red Blood Count 5.17 10^6/uL N 4.00-5.40 Hemoglobin 15.2 g/dL N 12.0-16.0 Hematocrit 45 % N 35-47 Mean Corpuscular Volume 87 fL N 80-97 Mean Corpuscular Hemoglobin 29 pg N 27-31 Mean Corpuscular HGB Conc 34 g/dL N 31-36 Red Cell Distribution Width 13 % N 10.5-15 Platelet Count 295 10^3/uL N 150-450 Mean Platelet Volume 8.3 um3 N 7.4-10.4 Abs Neutrophils 5.8 10^3/uL N 1.5-7.7 Abs Lymphocytes 3.3 10^3/uL N 1.0-4.8 Abs Monocytes 0.7 10^3/uL N 0-0.8 Abs Eosinophils 0.1 10^3/uL N 0-0.6 Abs Basophils 0.1 10^3/uL N 0-0.2 Abs Nucleated RBC 0 10^3/uL Granulocyte % 57.7 % N 38-83 Lymphocyte % 33.1 % N 25-47 Monocyte % 7.1 % High 0-7 Eosinophil % 0.9 % N 0-6 Basophil % 1.2 % N 0-2 Nucleated Red Blood Cells % 0 Comp Metabolic Panel 12/12/2017 [facility] Sodium 136 mmol/L N 135-[address] [place] [address] [phone] Potassium 4.1 mmol/L N 3.5-5.0 Chloride 101 mmol/L N 101-111 Co2 Carbon Dioxide 24 mmol/L N 22-32 Anion Gap 11 mmol/L N 2-11 Glucose 437 mg/dL High 70-100 Blood Urea Nitrogen 13 mg/dL N 6-24 Creatinine 0.70 mg/dL N 0.51-0.95 BUN/Creatinine Ratio 18.6 N 8-20 Calcium 9.1 mg/dL N 8.6-10.3 Total Protein 6.6 g/dL N 6.4-8.9 Albumin 3.6 g/dL N 3.2-5.2 Globulin 3.0 g/dL N 2-4 Albumin/Globulin Ratio 1.2 N 1-3 Total Bilirubin 0.20 mg/dL N 0.2-1.0 Alkaline Phosphatase 81 U/L N 34-104 Alt 20 U/L N 7-52 Ast 13 U/L N 13-39 Egfr Non- 93.6 >60 Egfr 113.3 >60 1 Laboratory test 12/12/2017 [facility] Troponin-I 0.00 <0.[address] (TnI) ng/[place] [address] [phone] Laboratory test 10/21/2017 [facility] Point of Care 261 mg/dL High 70-100 [address] [place] [address] [phone] CBC Auto Diff 10/21/2017 [facility] White Blood 12.3 High 3.5- 10.[address] Count 10^3/[place] [address] [phone] Red Blood Count 4.84 10^6/uL N 4.00-5.40 Hemoglobin 13.9 g/dL N 12.0-16.0 Hematocrit 42 % N 35-47 Mean Corpuscular Volume 87 fL N 80-97 Mean Corpuscular Hemoglobin 29 pg N 27-31 Mean Corpuscular HGB Conc 33 g/dL N 31-36 Red Cell Distribution Width 14 % N 10.5-15 Platelet Count 325 10^3/uL N 150-450 Mean Platelet Volume 8.0 um3 N 7.4-10.4 Abs Neutrophils 7.8 10^3/uL High 1.5-7.7 Abs Lymphocytes 3.3 10^3/uL N 1.0-4.8 Abs Monocytes 1.0 10^3/uL High 0-0.8 Abs Eosinophils 0.1 10^3/uL N 0-0.6 Abs Basophils 0.1 10^3/uL N 0-0.2 Abs Nucleated RBC 0 10^3/uL Granulocyte % 63.7 % N 38-83 Lymphocyte % 27.0 % N 25-47 Monocyte % 7.9 % High 0-7 Eosinophil % 0.8 % N 0-6 Basophil % 0.6 % N 0-2 Nucleated Red Blood Cells % 0.1 Laboratory test 10/21/2017 [facility] Lactic Acid 1.5 mmol/L N 0.5-2.0 3 finding [address] [place] [address] [phone] Comp Metabolic 10/21/2017 [facility] Sodium 137 mmol/L N 135- 145 Panel [address] [place] [address] [phone] Potassium 3.7 mmol/L N 3.5-5.0 Chloride 102 mmol/L N 101-111 Co2 Carbon Dioxide 27 mmol/L N 22-32 Anion Gap 8 mmol/L N 2-11 Glucose 290 mg/dL High 70-100 Blood Urea Nitrogen 11 mg/dL N 6-24 Creatinine 0.72 mg/dL N 0.51-0.95 BUN/Creatinine Ratio 15.3 N 8-20 Calcium 9.6 mg/dL N 8.6-10.3 Total Protein 6.9 g/dL N 6.4-8.9 Albumin 3.9 g/dL N 3.2-5.2 Globulin 3.0 g/dL N 2-4 Albumin/Globulin Ratio 1.3 N 1-3 Total Bilirubin 0.30 mg/dL N 0.2-1.0 Alkaline Phosphatase 67 U/L N 34-104 Alt 23 U/L N 7-52 Ast 17 U/L N 13-39 Egfr Non- 90.7 >60 Egfr 109.7 >60 4 Laboratory test 10/21/2017 [facility] Magnesium 1.8 mg/dL Low 1.9-2.[address] [place] [address] [phone] Amylase 22 U/L Low 29-103 Lipase 32 U/L N 11.0-82.0 Creatine Kinase(CK) 345 U/L High 10-223 C Reactive Protein 5.87 mg/L N <8.01 HCG < 0.60 mIU/mL 5 Urinalysis Profile 10/21/2017 [facility] Urine Color Yellow [address] [place] [address] [phone] Urine Appearance Cloudy Urine Specific [place] 1.028 N 1.010-1.030 Urine pH 5.0 N 5-9 Urine Urobilinogen Negative Negative Urine Ketones Negative Negative Urine Protein 1+(30 mg/dL) Abnormal Negative Urine Leukocytes Negative Negative Urine Blood Negative Negative Urine Nitrite Negative Negative Urine Bilirubin Negative Negative Urine Glucose 3+(>=500 mg/dL) Abnormal Negative Urine White Blood Cell 2+(11-20/hpf) Abnormal Absent Urine Red Blood Cell Absent Absent Urine Bacteria Absent Absent Urine Squamous Epithelial Cell Present Abnormal Absent Urine Culture And 10/21/2017 [facility] Urine Culture SEE RESULT [address] [place] [address] [phone] Laboratory test 09/04/2017 [facility] Creatine 244 U/L High 10 -[address] Kinase(CK) 3 [place] [address] [phone] B-Type Natriuretic Peptide BNP 19 pg/mL 7 Lactic Acid 0.8 mmol/L N 0.5-2.0 8 Comp Metabolic Panel 09/04/2017 [facility] Sodium 137 mmol/L Low 139-[address] [place] [address] [phone] Potassium 3.7 mmol/L N 3.5-5.0 Chloride 104 mmol/L N 101-111 Co2 Carbon Dioxide 26 mmol/L N 22-32 Anion Gap 7 mmol/L N 2-11 Glucose 236 mg/dL High 70-100 Blood Urea Nitrogen 13 mg/dL N 6-24 Creatinine 0.75 mg/dL N 0.51-0.95 BUN/Creatinine Ratio 17.3 N 8-20 Calcium 8.7 mg/dL N 8.6-10.3 Total Protein 6.8 g/dL N 6.4-8.9 Albumin 3.7 g/dL N 3.2-5.2 Globulin 3.1 g/dL N 2-4 Albumin/Globulin Ratio 1.2 N 1-3 Total Bilirubin 0.30 mg/dL N 0.2-1.0 Alkaline Phosphatase 56 U/L N 34-104 Alt 18 U/L N 7-52 Ast 14 U/L N 13-39 Egfr Non- 86.5 >60 Egfr 111.2 >60 9 CBC Auto 09/04/2017 [facility] White Blood 13.5 10^3/uL High 3.5-10.[address] [place] [address] [phone] Red Blood Count 5.06 10^6/uL N 4.0-5.4 Hemoglobin 14.8 g/dL N 12.0-16.0 Hematocrit 43 % N 35-47 Mean Corpuscular Volume 86 fL N 80-97 Mean Corpuscular Hemoglobin 29 pg N 27-31 Mean Corpuscular HGB Conc 34 g/dL N 31-36 Red Cell Distribution Width 13 % N 10.5-15 Platelet Count 318 10^3/uL N 150-450 Mean Platelet Volume 7.7 um3 N 7.4-10.4 Abs Neutrophils 9.6 10^3/uL High 1.5-7.7 Abs Lymphocytes 2.5 10^3/uL N 1.0-4.8 Abs Monocytes 1.2 10^3/uL High 0-0.8 Abs Eosinophils 0 10^3/uL N 0-0.6 Abs Basophils 0.1 10^3/uL N 0-0.2 Abs Nucleated RBC 0 10^3/uL Granulocyte % 71.3 % N 38-83 Lymphocyte % 18.9 % Low 25-47 Monocyte % 9.1 % High 0-7 Eosinophil % 0.2 % N 0-6 Basophil % 0.5 % N 0-2 Nucleated Red Blood Cells % 0 Laboratory test 01/20/2017 [facility] Point of Care 232 mg/dL High 70-100 [address] [place] [address] [phone] Urinalysis 01/20/2017 [facility] Urine Color Yellow N Profile [address] [place] [address] [phone] Urine Appearance Cloudy N Urine Specific [place] 1.028 N 1.010-1.030 Urine pH 5.0 N 5-9 Urine Urobilinogen Negative N Negative Urine Ketones Negative N Negative Urine Protein Negative N Negative Urine Leukocytes Trace Abnormal Negative Urine Blood Negative N Negative Urine Nitrite Negative N Negative Urine Bilirubin Negative N Negative Urine Glucose 3+(>=500 mg/dL) Abnormal Negative Urine White Blood Cell 3+(>20/hpf) Abnormal Absent Urine Red Blood Cell Trace(0-2/hpf) N Absent Urine Bacteria 1+ Abnormal Absent Urine Squamous Epithelial Cell Present Abnormal Absent Urine Culture And 01/20/2017 [facility] Urine Culture SEE RESULT [address] [place] [address] [phone] Comp Metabolic 01/17/2017 [facility] Sodium 136 mmol/L N 133- [address] [place] [address] [phone] Potassium 4.5 mmol/L N 3.5-5.0 Chloride 103 mmol/L N 101-111 Co2 Carbon Dioxide 26 mmol/L N 22-32 Anion Gap 7 mmol/L N 2-11 Glucose 268 mg/dL High 70-100 Blood Urea Nitrogen 14 mg/dL N 6-24 Creatinine 0.65 mg/dL N 0.51-0.95 BUN/Creatinine Ratio 21.5 High 8-20 Calcium 8.9 mg/dL N 8.6-10.3 Total Protein 6.6 g/dL N 6.4-8.9 Albumin 3.8 g/dL N 3.2-5.2 Globulin 2.8 g/dL N 2-4 Albumin/Globulin Ratio 1.4 N 1-3 Total Bilirubin 0.50 mg/dL N 0.2-1.0 Alkaline Phosphatase 62 U/L N 34-104 Alt 25 U/L N 7-52 Ast 14 U/L N 13-39 Egfr Non- 102.6 N >60 Egfr 131.9 N >60 12 Lipid Profile 01/17/2017 [facility] Triglycerides 194 mg/dL N 13 (Trig/Chol/HDL) [address] [place] [address] [phone] Cholesterol 243 mg/dL N 14 HDL Cholesterol 36.9 mg/dL N 15 LDL Cholesterol 167 mg/dL N 16 Urine Microalbumin 01/17/2017 [facility] Urine Creatinine 159.48 mg/dL N Random [address] [place] [address] [phone] Ur Microalbumin (mg/L) 119.4 mg/L N Urine Microalbumin/Creatinine 74.8 ug/mg High <31 Laboratory test 01/17/2017 [facility] TSH (Thyroid 3.56 mcIU/mL N 0.34-5.[address] [facility]) [place] [address] [phone] Vitamin B12 698 pg/mL N 180-914 17 Laboratory test finding 10/24/2016 [facility] Hemoglobin A1c 13.6 High 5-7 1 Because ethnic data is not always readily available, this report includes an eGFR for both -Americans and non- Americans. The National Kidney Disease Education Program (NKDEP) does not endorse the use of the MDRD equation for patients that are not between the ages of 18 and 70, are , have extremes of body size, muscle mass, or nutritional status, or are non- or non-. According to the National Kidney Foundation, irrespective of diagnosis, the stage of the disease is based on the level of kidney function: Stage Description GFR(mL/min/1.73 m(2)) 1 Kidney damage with normal or decreased GFR 90 2 Kidney damage with mild decrease in GFR 60-89 3 Moderate decrease in GFR 30-59 4 Severe decrease in GFR 15-29 5 Kidney failure <15 (or dialysis) 2 Loading Supervisor: [id number] 3 [facility] Severe Sepsis and Septic Shock Management Bundle Measure requires all lactic acids initially measuring >2.0 mmol/L be repeated. 4 Because ethnic data is not always readily available, this report includes an eGFR for both -Americans and non- Americans. The National Kidney Disease Education Program (NKDEP) does not endorse the use of the MDRD equation for patients that are not between the ages of 18 and 70, are , have extremes of body size, muscle mass, or nutritional status, or are non- or non-. According to the National Kidney Foundation, irrespective of diagnosis, the stage of the disease is based on the level of kidney function: Stage Description GFR(mL/min/1.73 m(2)) 1 Kidney damage with normal or decreased GFR 90 2 Kidney damage with mild decrease in GFR 60-89 3 Moderate decrease in GFR 30-59 4 Severe decrease in GFR 15-29 5 Kidney failure <15 (or dialysis) 5 <5.0 Negative 5.0 - 25.0 Indeterminate (Repeat testing recommended after 72 hours) >25.0 Positive Perimenopausal women can display HCG levels of up to 20 mIU/mL 6 SEE RESULT BELOW Name: YUE ESPINO : [address]: Gallito Chowdary MD Acct: [id number] Unit: [id number] AGE: 37 Location: ED Re10/21/17 SEX: F Status: DEP ER SPEC: [id number] INES: 10/21/17-[address]: Gallito Chowdary MD REQ: [id number] RECD: 10/21/17 STATUS: JOY VERDUZCO DR: Donny Rajan ELECTRIC SEALING MACHINE OPERATOR _ SOURCE: URINE SPDESC: ORDERED: Urine Culture Procedure Result Reported Site Urine Culture Final 10/23/17- 1003 ML No growth of clinically significant organisms * ML - Main Lab . END OF REPORT DEPARTMENT OF PATHOLOGY, [address] [place] [address] Jose Luis Kulkarni M.D. Director [facility] # [id number] 7 >100 to <200 pg/mL: likely compensated congestive heart failure (CHF) 200 to 400 pg/mL: likely moderate CHF >400 pg/mL: likely moderate to severe CHF 8 [facility] Severe Sepsis and Septic Shock Management Bundle Measure requires all lactic acids initially measuring >2.0 mmol/L be repeated. 9 Because ethnic data is not always readily available, this report includes an eGFR for both -Americans and non- Americans. The National Kidney Disease Education Program (NKDEP) does not endorse the use of the MDRD equation for patients that are not between the ages of 18 and 70, are , have extremes of body size, muscle mass, or nutritional status, or are non- or non-. According to the National Kidney Foundation, irrespective of diagnosis, the stage of the disease is based on the level of kidney function: Stage Description GFR(mL/min/1.73 m(2)) 1 Kidney damage with normal or decreased GFR 90 2 Kidney damage with mild decrease in GFR 60-89 3 Moderate decrease in GFR 30-59 4 Severe decrease in GFR 15-29 5 Kidney failure <15 (or dialysis) 10 Loading Supervisor: [id number] 11 SEE RESULT BELOW Name: YUE ESPINO : [address]: Avila Atkins MD Acct: [id number] Unit: [id number] AGE: 36 Location: ED Re01/20/17 SEX: F Status: REG ER SPEC: [id number] INES: 01/20/[address]: Chrissy WHITT REQ: [id number] RECD: 01/20/17 STATUS: JOY VERDUZCO DR: Donny Atkins MD _ SOURCE: URINE SPDESC: ORDERED: Urine Culture Procedure Result Reported Site Urine Culture Final 01/22/17- 723 ML Organism 1 KLEBSIELLA PNEUMONIAE [place] Count >100,000 (Many) CFU/ML 1. KLEBSIELLA PNEUMONIAE M.I.C. RX --------- ------ Ampicillin R Cefazolin <=4 S Cefepime <=1 S Ceftriaxone <=1 S Ciprofloxacin <=0.25 S Gentamicin <=1 S Levofloxacin <=0.12 S Meropenem <=0.25 S Nitrofurantoin <=16 S Tetracycline <=1 S Pipercillin/Tazobactam <=4 S Trimethoprim/Sulfamethoxazole <=20 S Amoxicillin/Clavulanic Acid <=2 S Aztreonam <=1 S Contact the Microbiology Department for any additional antibiotic reporting. * ML - MAIN LAB ([facility]) . END OF REPORT * ML=Testing performed at Main Lab DEPARTMENT OF PATHOLOGY, [address] [place] [address] Jose Luis Kulkarni M.D. Director [facility] # [id number] 12 Because ethnic data is not always readily available, this report includes an eGFR for both -Americans and non- Americans. The National Kidney Disease Education Program (NKDEP) does not endorse the use of the MDRD equation for patients that are not between the ages of 18 and 70, are , have extremes of body size, muscle mass, or nutritional status, or are non- or non-. According to the National Kidney Foundation, irrespective of diagnosis, the stage of the disease is based on the level of kidney function: Stage Description GFR(mL/min/1.73 m(2)) 1 Kidney damage with normal or decreased GFR 90 2 Kidney damage with mild decrease in GFR 60-89 3 Moderate decrease in GFR 30-59 4 Severe decrease in GFR 15-29 5 Kidney failure <15 (or dialysis) 13 Desirable <150 Borderline high 150-199 High 200-499 Very High >500 14 Desirable <200 Borderline high 200-239 High >239 15 Low <40 Desirable: 40-60 High: >60 16 Desirable: <100 mg/dL Near Optimal: 100-129 mg/dL Borderline High: 130-159 mg/dL High: 160-189 mg/dL Very High: >189 mg/dL 17 Normal Range 180 to 914 Indeterminate Range 145 to 180 Deficient Range <145 Procedures Date Code Description Status 08/29/2017 70973 Inject Tendon Sheath Or Ligament Aponeurosis Eg Completed Plantar Fascia 05/30/2017 15823 Inject Tendon Sheath Or Ligament Aponeurosis Eg Completed Plantar Fascia 03/27/2017 [id number] Diabetic Retinal Eye Exam Completed Encounters Type Date Location Provider Dx Diagnosis Office Visit 08/29/2017 Orthopedic Isaiah Lazar M65.311 Trigger thumb, 10:30a [facility] right thumb G56.03 Carpal tunnel syndrome, bilateral upper limbs Office Visit 05/30/2017 10:30a Orthopedic Isaiah M65.311 Trigger thumb, [facility] MD right thumb Office Visit 05/23/2017 11:00a Lori Rajan NP M79.644 Pain in right Medicine - finger(s) [place] B37.9 Candidiasis, unspecified E11.9 Type 2 diabetes mellitus without complications H69.90 Unspecified Eustachian tube disorder, unspecified ear Office Visit 01/30/2017 10:20a Lori Rajan, E11.9 Type 2 diabetes Medicine - ELECT[employer] SEALING MACHINE OPERATOR mellitus without [place] complications R10.9 Unspecified abdominal pain M79.603 Pain in arm, unspecified M54.31 Sciatica, right side M54.2 Cervicalgia Office Visit 10/24/2016 9:00a [facility] Internal Donny Rajan, E11.9 Type 2 diabetes Medicine - ELECT[employer] SEALING MACHINE OPERATOR mellitus without [place] complications M79.603 Pain in arm, unspecified R20.2 Paresthesia of skin R06.02 Shortness of breath R10.9 Unspecified abdominal pain Office Visit 06/29/2012 10:45a [facility] 380.23 Otitis Externa C.M.A. AT [facility] Manzano Other Chronic [place] Plan of Treatment 03/27/2018 - Donny Rajan, NPE11.9 Type 2 diabetes mellitus without complicationsReferral:[facility] HvawbN13.5 Low back painNew Therapy:Physical DfsifleN90.31 Sciatica, right sideNew Medication: Cyclobenzaprine HCL 5 mg - one by mouth three times a day as needed spasmHydrocodone-Acetaminophen 7.5-325 mg - 1 tablet three times daily as neededNew Therapy:Physical TherapyComments:Your hip and leg pain appear to be related to sciatica. For this I recommend using heat to the area frequently. You can continue using the ibuprofen 800mg three times daily. You can use the flexeril asneeded, but this may make you tired. Use the pain medication sparingly as needed. If there is no improvement I would recommend physical therapy. The stretches that work well include lying on the floor and pulling your knee to your chest and sitting with one leg crossed over the other, turning the upper body and pressing on the outside of the knee, as I showed you in the office. Hold each stretch for about 10 seconds. Do these several times a day.If this worsens or does not improve please call the office.
[2018-04-16] MEDS ORDERED: Metoclopramide IV* 5 MG/ML 2 ML VIAL IV SLOW PU ONE (21:03)
[2018-04-16] MEDS ORDERED: diPHENhydraMINE PO* 25 MG PO ONE (21:03)
[2018-04-16] MEDS ORDERED: Ketorolac INJ* 30 MG/ML 1 ML VIAL IV PUSH ONE (21:03)
[2018-04-16] MEDS ORDERED: NS 0.9% 1000 ML* 1,000 ML IV ONE (21:04)
--- NOTE | 2018-04-16 21:41 | ED ---
Headache - HPI Summary HPI Summary: 37 year old female presents with headache today. she prefers to be seen as a male. She states the headache is located on the left side of her head. It radiates to her left eye. when the pain is intense it like her eyes bulging of her head. Denies any change in vision. No double vision. She denies any dizziness. She admits to photophobia. No nausea or vomiting. She is diabetic. No fevers. No sinus congestion. No recent illness. Denies any cough chest pain or shortness breath. She states that her headache is not the worse headache of her life. She states though with the eye pressure is different than she normally has. She states that she's had eye pressures done this year and there are normal. States that the pain is a waxing and waning. - History Of Current Complaint Chief Complaint: EDHeadache Stated Complaint: LT EYE PAIN Time Seen by Provider: 04/16/18 20:55 Hx Last Menstrual Period: IRREG , NOT SURE LAST PERIOD, Patient is on depo - Allergies/Home Medications Allergies/Adverse Reactions: Allergies Allergy/AdvReac Type Severity Reaction Status Date / Time aspirin Allergy Vomiting Verified 11/23/17 20:23 chlorpromazine Allergy Swelling Verified 11/23/17 20:23 [From Thorazine] glipizide Allergy Blurred Verified 11/23/17 20:23 Vision PMH/Surg Hx/FS Hx/Imm Hx Endocrine/Hematology History: Reports: Hx Diabetes Denies: Hx Anticoagulant Therapy Cardiovascular History: Reports: Hx Hypertension, Other Cardiovascular Problems/ Disorders - born with hole in heart, HX of mumur as child. Denies: Hx Pacemaker/ICD Respiratory History: Reports: Hx Asthma - As a child Denies: Hx Chronic Obstructive Pulmonary Disease (COPD) GI History: Reports: Other GI Disorders - IBS History: Denies: Hx Dialysis, Hx Renal Disease Musculoskeletal History: Reports: Other Musculoskeletal History - chronic back pain Denies: Hx Rheumatoid Arthritis, Hx Osteoporosis Neurological History: Reports: Hx Headaches, Hx Migraine Denies: Other Neuro Impairments/Disorders Psychiatric History: Reports: Hx Panic Disorder - Surgical History Surgery Procedure, Year, and Place: FATTY LIPOMA OF RIGHT AXILLIA NOV 2013 Infectious Disease History: No Infectious Disease History: Denies: Traveled Outside the [place] in Last 30 Days - Family History Known Family History: Positive: Diabetes - father - Social History Alcohol Use: Occasionally Hx Substance Use: Yes Substance Use Type: Reports: Marijuana Substance Use Comment - Amount & Last Used: one week Hx Tobacco Use: Yes Smoking Status (MU): Current Every Day Smoker Type: Cigarettes Amount Used/How Often: 1 PPD Review of Systems Negative: Fever Positive: Other - left eye pain Positive: Headache All Other Systems Reviewed And Are Negative: Yes Physical Exam Triage Information Reviewed: Yes Vital Signs On Initial Exam: Initial Vitals Temp Pulse Resp BP Pulse Ox 97.7 F 96 14 147/82 94 04/16/18 20:13 04/16/18 20:13 04/16/18 20:13 04/16/18 20:13 04/16/18 20:13 Vital Signs Reviewed: Yes Appearance: Positive: Well-Appearing Skin: Positive: Warm, Dry Head/Face: Positive: Normal Head/Face Inspection Eyes: Positive: Normal, EOMI, VELVET, Conjunctiva Clear, Other: - normal fundoscopic exam. Negative: Conjunctiva Inflammed ENT: Positive: Normal ENT inspection, Pharynx normal, TMs normal. Negative: Sinus tenderness Neck: Positive: Supple, Nontender, No Lymphadenopathy Respiratory/Lung Sounds: Positive: Clear to Auscultation, Breath Sounds Present Cardiovascular: Positive: Normal, RRR Abdomen Description: Positive: Nontender, Soft Bowel Sounds: Positive: Present Musculoskeletal: Positive: Normal Neurological: Positive: Sensory/Motor Intact, Alert, Oriented to Person Place, Time, CN Intact II-III Psychiatric: Positive: Normal Diagnostics - Vital Signs Vital Signs Temp Pulse Resp BP Pulse Ox 04/16/18 20:13 97.7 F 96 14 147/82 94 - Laboratory Lab Statement: Any lab studies that have been ordered have been reviewed, and results considered in the medical decision making process. Re-Evaluation - Re-Evaluation First Eval Re-Evaluation Time: 22:13 Change: Improved Comment: pain not completely resolved Second Eval Re-Evaluation Time: 23:13 Change: Improved Comment: migraine resolved Headache Course/Dx - Course Course Of Treatment: 37 year old female presents with headache today. she prefers to be seen as a male. She states the headache is located on the left side of her head. It radiates to her left eye. when the pain is intense it like her eyes bulging of her head. Denies any change in vision. No double vision. She denies any dizziness. She admits to photophobia. No nausea or vomiting. She is diabetic. No fevers. No sinus congestion. No recent illness. Denies any cough chest pain or shortness breath. She states that her headache is not the worse headache of her life. She states though with the eye pressure is different than she normally has. She states that she's had eye pressures done this year and there are normal. States that the pain is a waxing and waning. On exam has normal neuro exam. Conjunctivae noninjected and no fixed pupil. No signs of acute angle glaucoma on exam. CT brain is normal. Normal neuro exam. gave benadryl Compazine and Toradol with minimal relief. was not till give morphine that headache resolved. told to follow up with primary. patient understand and agrees with plan. - Diagnoses Differential Diagnosis/HQI/PQRI: Migraine, Viral Syndrome, Other - glaucoma Provider Diagnoses: Headache Discharge - Sign-Out/Discharge Documenting (check all that apply): Patient Departure - Discharge Plan Condition: Good Disposition: HOME Patient Education Materials: Migraine Headache (ED) Referrals: Donny Rajan NP [Primary Care Provider] - Additional Instructions: take Tylenol or ibuprofen every 6 hours as needed for pain Follow up with primary Return to ED if develop any new or worsening symptoms - Billing Disposition and Condition Condition: GOOD Disposition: Home
[2018-04-16] MEDS ORDERED: Morphine VIAL* 4 MG/ML VIAL (1 ml vial) IV ONE (22:14)
[2018-04-16 23:15] VITALS: BP 150/94
== END 2018-04-16 23:14 | disposition home or self-care (01) ==
LOC: ED 20:08
DX: R51 Headache (principal); Z88.6 Allergy status to analgesic agent; Z88.8 Allergy status to other drugs, medicaments and biological substances; F17.210 Nicotine dependence, cigarettes, uncomplicated
CPT/HCPCS: 70450; 96374; 96375; 99282; A9270-GY; J1885; J2270; J2765

== ENCOUNTER 2018-07-22 08:40 | Emergency (ER) | payer OTHER ==
[2018-07-22] MEDS ORDERED: Orphenadrine Citrate IV* 30 MG/ML 2 ML VIAL IV ONE (09:03)
[2018-07-22] MEDS ORDERED: oxyCODONE/Acetamin 5/325 MG* TAB PO ONE (09:03)
[2018-07-22] MEDS ORDERED: Ketorolac INJ* 30 MG/ML 1 ML VIAL IM ONE (09:03)
[2018-07-22] MEDS ORDERED: Dexamethasone IV* 4 MG/ML 1 ML (4 MG) IV SLOW PU ONE (09:04)
--- NOTE | 2018-07-22 09:06 | ED ---
Lower Extremity - HPI Summary HPI Summary: Pt is a 38 y/o F presenting to the ED with a chief complaint of LLE pain onset , described as liquid fire burning and rated at 10/10. She has not been able to sleep since the pain started. She denies urinary or bowel incontinence. Sitting aggravates the pain, and nothing alleviates it. The pain goes through her L knee and middle of buttocks, and she has hx of sciatica problems as well as IBS. She smokes cigarettes and marijuana but denies alcohol use. - History of Current Complaint Chief Complaint: EDExtremityLower Stated Complaint: LEFT LEG/HIP/KNEE PAIN PER PT Time Seen by Provider: 07/22/18 08:41 Hx Obtained From: Patient Hx Last Menstrual Period: IRREG , NOT SURE LAST PERIOD, Patient is on depo Mechanism Of Injury: Unknown Onset of Pain: Minutes Onset/Duration: Days Severity Initially: Moderate Severity Currently: Severe Pain Intensity: 8 Pain Scale Used: 0-10 Numeric Timing: Intermittent, Lasting Hours Location: Is Diffuse - L knee to L lower back Character Of Pain: Burning Associated Signs And Symptoms: Positive: Other - L lower extremity burning Aggravating Factor(s): Other - sitting Alleviating Factor(s): Nothing Able to Bear Weight: Yes - Allergies/Home Medications Allergies/Adverse Reactions: Allergies Allergy/AdvReac Type Severity Reaction Status Date / Time aspirin Allergy Vomiting Verified 07/22/18 09:04 chlorpromazine Allergy Swelling Verified 07/22/18 09:04 [From Thorazine] glipizide Allergy Blurred Verified 07/22/18 09:04 Vision PMH/Surg Hx/FS Hx/Imm Hx Previously Healthy: Yes Endocrine/Hematology History: Reports: Hx Diabetes Denies: Hx Anticoagulant Therapy Cardiovascular History: Reports: Hx Hypertension, Other Cardiovascular Problems/ Disorders - born with hole in heart, HX of mumur as child. Denies: Hx Pacemaker/ICD Respiratory History: Reports: Hx Asthma - As a child Denies: Hx Chronic Obstructive Pulmonary Disease (COPD) GI History: Reports: Hx Irritable Bowel History: Denies: Hx Dialysis, Hx Renal Disease Musculoskeletal History: Reports: Other Musculoskeletal History - chronic back pain Denies: Hx Rheumatoid Arthritis, Hx Osteoporosis Sensory History: Reports: Hx Contacts or Glasses Opthamlomology History: Reports: Hx Contacts or Glasses Neurological History: Reports: Hx Headaches, Hx Migraine Denies: Other Neuro Impairments/Disorders Psychiatric History: Reports: Hx Panic Disorder - Surgical History Surgery Procedure, Year, and Place: FATTY LIPOMA OF RIGHT AXILLIA NOV 2013 - Immunization History Immunizations Up to Date: Yes Infectious Disease History: No Infectious Disease History: Denies: Traveled Outside the [place] in Last 30 Days - Family History Known Family History: Positive: Diabetes - father - Social History Alcohol Use: Occasionally Hx Substance Use: Yes Substance Use Type: Reports: Marijuana Substance Use Comment - Amount & Last Used: one week Hx Tobacco Use: Yes Smoking Status (MU): Current Every Day Smoker Type: Cigarettes Amount Used/How Often: 1 PPD Review of Systems Negative: incontinence Positive: Myalgia All Other Systems Reviewed And Are Negative: Yes Physical Exam - Summary Physical Exam Summary: VITAL SIGNS: Reviewed. GENERAL: Patient is a well-developed and nourished female who is lying comfortable in the stretcher. Patient is not in any acute respiratory distress. HEAD AND FACE: No signs of trauma. No ecchymosis, hematomas or skull depressions. No sinus tenderness. EYES: PERRLA, EOMI x 2, No injected conjunctiva, no nystagmus. EARS: Hearing grossly intact. Ear canals and tympanic membranes are within normal limits. MOUTH: Oropharynx within normal limits. NECK: Supple, trachea is midline, no adenopathy, no JVD, no carotid bruit, no c- spine tenderness, neck with full ROM. CHEST: Symmetric, no tenderness at palpation LUNGS: Clear to auscultation bilaterally. No wheezing or crackles. CVS: Regular rate and rhythm, S1 and S2 present, no murmurs or gallops appreciated. ABDOMEN: Soft, non-tender. No signs of distention. No rebound no guarding, and no masses palpated. Bowel sounds are normal. EXTREMITIES: Tenderness in L paraspinal muscles on the lumbar spine, pain in middle of L gluteus, positive straight leg test about 45 degrees on L side. No edema, no cyanosis or clubbing. NEURO: Alert and oriented x 3. No acute neurological deficits. Speech is normal and follows commands. SKIN: Dry and warm Triage Information Reviewed: Yes Vital Signs On Initial Exam: Initial Vitals Temp Pulse Resp BP Pulse Ox 97.3 F 109 18 136/106 96 07/22/18 08:43 07/22/18 08:43 07/22/18 08:43 07/22/18 08:43 07/22/18 08:43 Vital Signs Reviewed: Yes Diagnostics - Vital Signs Vital Signs Temp Pulse Resp BP Pulse Ox 07/22/18 08:43 97.3 F 109 18 136/106 96 - Laboratory Lab Statement: Any lab studies that have been ordered have been reviewed, and results considered in the medical decision making process. - Radiology L-spine x-ray Radiology Interpretation Completed By: Radiologist Summary of Radiographic Findings: No fracture of the lumbar spine. ED physician has reviewed this report. Re-Evaluation - Re-Evaluation 1st re-eval Re-Evaluation Time: 10:30 Change: Improved Comment: The pt reports her pain has significantly decreased, and she is able to move her leg/ambulate around the ED. She will be discharged with a dx of sciatica. Lower Extremity Course/Dx - Course Assessment/Plan: This patient is a 38-year-old female who presents to the emergency department with a chief complaint of lower back pain with radiation to the left leg. Patient denies any urinary or fecal dysfunction. The patient denies any saddle synesthesia. X-ray of the lumbar spine shows no acute fracture or dislocation. In the ED course, the patient was given Decadron, Norflex, Toradol, and a Percocet and the symptoms have significantly improved. At this point the patient is able to ambulate with minimal pain, and she has a good steady walk. The patient was recommended to check her sugar since the patient was given a steroid. The patient will adjust her insulin accordingly to the fingerstick. The patient will be discharged home with instructions to follow-up with PCP. The patient was given a prescription for Flexeril and [place] for the pain. The patient will be taking ibuprofen as needed. The patient is walking out of the emergency room with a good steady walk and no significant pain. She was instructed to return to the emergency department if she develops any other symptom. The patient understands and agrees. - Diagnoses Provider Diagnoses: Sciatica Discharge - Sign-Out/Discharge Documenting (check all that apply): Patient Departure Patient Received Moderate/Deep Sedation with Procedure: No - Discharge Plan Condition: Stable Disposition: HOME Prescriptions: Cyclobenzaprine TAB* [Flexeril 10 MG TAB*] 10 mg PO TID PRN #9 tab PRN Reason: Pain HYDROcodone/ACETAMIN 5-325 MG* [[place] 5-325 TAB*] 1 tab PO Q6H PRN #12 tab MDD 4 PRN Reason: Pain Referrals: Donny Rajan, [facility] [Primary Care Provider] - Additional Instructions: Please follow up with your primary care provider in the next 3 days. Return to the ED with any new or worsening symptoms. - Billing Disposition and Condition Condition: STABLE Disposition: Home - Attestation Statements Document Initiated by Scribe: Yes Documenting Scribe: Brenda Roque Provider For Whom Christina is Documenting (Include Credential): Blake Negron MD. Scribe Attestation: Brenda Celaya scribed for Blake Negron MD. on 07/22/18 at 1745. Scribe Documentation Reviewed: Yes Provider Attestation: The documentation as recorded by the Brenda gunter accurately reflects the service I personally performed and the decisions made by Blake gilliland MD. Status of Scribe Document: Viewed
--- OUTSIDE RECORDS SUMMARY | 2018-07-22 09:30 | XMS REPORT | Continuity of Care Document ---
:1980 Author Organization [facility] Address [address], [place] [id number] Phone Care Team Providers Name Role Phone Pat Guajardo NP Unavailable Unavailable Allergies, Adverse Reactions, Alerts Substance Reaction Status meloxicam Active glipizide Active CHLORPROMAZINE HCL Active aspirin Nausea/Vomiting Active Medications Medication Instructions Dosage Effective Dates Status Comments (start - stop) Depo-Provera 150 IM Q 11-13 weeks - Active mg/mL intramuscular suspension Depo-Provera 150 IM Q 11-13 weeks - Active mg/mL intramuscular suspension Basaglar KwikPen 100 - Active unit/mL (3 mL) subcutaneous BENADRYL (unknown Not Available - Active strength) NOVOLOG (unknown Not Available - Active strength) TRAMADOL HCL ER Not Available - Active (unknown strength) FLONASE ALLERGY Not Available - Active RELIEF (unknown strength) Problems Condition Effective Dates Clinical Status Comments (start - stop) Encounter for surveillance of injectable contraceptive Human immunodeficiency virus - [HIV] counseling Encounter for surveillance of injectable contraceptive Body mass index (BMI) 38.0-38.9, adult Candidiasis of vulva and vagina Encounter for surveillance of injectable contraceptive Encounter for oth general cnsl and advice on contraception Nicotine dependence, unspecified, uncomplicated Encounter for surveillance of injectable contraceptive Encounter for surveillance of injectable contraceptive Encounter for surveillance of injectable contraceptive Encounter for surveillance of injectable contraceptive Encounter for surveillance of injectable contraceptive Encounter for surveillance of injectable contraceptive Encounter for surveillance of injectable contraceptive Encounter for surveillance of injectable contraceptive Encounter for surveillance of injectable contraceptive Encounter for surveillance of injectable contraceptive Encounter for surveillance of injectable contraceptive Encounter for surveillance of injectable contraceptive 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 STI DEPO Results Test Name Date and Time Measure Units Reference Range Abnormal Flag Status Comments No information Advance Directives Directive Yes / No Effective Date File Name No information Encounters Encounter Practice Location Reason(s) Diagnoses Date Provider Providers Description For Visit Copied on Encounter [facility] Encounter for Casandra Stewart. Referring [facility] surveillance of [address] Provider: [facility] injectable [address], [place], [place], [address], [place], [address], [address] [place], , [place], [place], [place], [address]. [id number], [place] tel: [phone] [facility] Human Casandra Stewart. Referring [facility] immunodeficiency [address] Provider: [facility] virus [HIV] [address], [place], [place], [address], [place], [address], [address] [place] surveillance of [address], , [place], injectable [place], [place], [id number], [phone].Cons [place] ulting tel: Provider: [phone] [place]URSE [place] [facility] Body mass index [place] Referring [facility] (BMI) 38.0-38.9, 2-201 shiraz Sueane. Provider: [facility] adultCandidiasis 8 [address] Sueane Finger of vulva and St, [place], [place], [address] [place], [address]. emmer, [address] for surveillance tel:[phone] [address] [facility], of injectable [address] [address], [place], contraceptiveEnc [place], [id number], [place], [address]. [place] general cnsl and tel:[phone] tel:[phone] advice on [phone] contraceptionNic otine dependence, unspecified, uncomplicated [facility] Encounter for P[place]te Referring [facility] surveillance of [place]. [address] Provider: [facility] injectable [address], [place] contrace[place], [place], [place], [place], [address]. [address] tel:[phone], St, [place], [address] [place], [place], [address]. [id number], tel:[phone] [place] [phone] tel:[phone] sulting [phone] Provider: [facility] [place] [facility] Encounter for Casandra Stewart. Referring [facility] surveillance of [address] Provider: [facility] injectable [address], [place], [place], [address], [place], [address], [address] [place], St, [place], [place], [place], [address]. [id number], [place] tel:[phone] [facility] Encounter for Casandra Stewart. Referring [facility] surveillance of [address] Provider: [facility] injectable [address], [place], [place], [address], [place], 620 [facility], [address] [place], [address], [place], [place], [id number], [phone].Cons [place] ulting tel:[phone] Provider: [phone] [facility] [place] [facility] Encounter for Hang Referring [facility] surveillance of [place]. [address] Provider: [facility] injectable [address], [place] contraceptive [place], [place], Raphaelidi [facility], [phone]. s, [address] tel:[phone], St, [place], [address] [place], [place], [address]. [id number], tel:[phone] [place] [phone] tel:[phone] sulting [phone] Provider: [facility]SE [place] [facility] Encounter for Hang Referring [facility] surveillance of [place]. [address] Provider: [facility] injectable [address], Tanya Finger contraceptive [place], [place], Trista Arell[place], [address] [address]. [address] tel:[phone], , [place], [address] [place], [place], [address]. [id number], tel:[phone] [place] [phone] tel:[phone] sulting [phone] Provider: [facility]SE [place] [facility] Encounter for Parete Referring [facility] surveillance of 2 [address]. [address] Provider: [place] injectable [address], T[place] contraceptive [place], [place], [place], [address]. [address] tel:[phone], , [place], [address] [place], [place], [address]. [id number], tel:[phone] [place] [phone] tel:[phone] sulting [phone] Provider: [facility]URSE [place] [facility] Encounter for Chrisidis Referring [facility] surveillance of [place]. [address] Provider: [place] injectable [address], T[place] F[place] contraceptive [place], [place], [place], [address] [address]. [address] tel:[phone], , [place], [address] [place], [place], [address]. [id number], tel:[phone] [place] [phone] tel:[phone] sulting [phone] Provider: [facility]URSE [place] [facility] Encounter for Borglum Referring [facility] surveillance of Julianne. 620 Provider: [place] injectable [address], T[place] contraceptive [place], [place], [place], [address], [place]. [address] tel:[phone], St, [place], [address] [place], [place], [address]. [id number], tel:[phone] [place] [phone] tel:[phone] sulting [phone] Provider: [facility]URSE [place] [facility] Encounter for Feb-0 [place] Pat. Referring [facility] surveillance of [address] Provider: [facility] injectable [address], [place], [place], [address], Trista Arellano, [address] [place]. [address], St, [place], [place], [place], [address]. [id number], tel:[phone] [place] [phone] tel:[phone] sulting [phone] Provider: [facility]URSE [place] [facility] Encounter for Borglum Referring [facility] surveillance of [place]. 620 Provider: [place] injectable [address], Tanya Finger contraceptive [place], [place], [place], [address], [place]. [address] tel:[phone] [address], St, [place], [address] [place], [place], [address]. [id number], tel:[phone] [place] [phone] tel:[phone] sulting [phone] Provider: NURSE [place] [facility] Encounter for Hang Referring [facility] surveillance of [place]. [address] Provider: [place] injectable [address], Tanya F[place] contraceptive [place], [place], [place], [address]. [address] tel:[phone] [address], St, [place], [address] [place], [place], [address]. [id number], tel:[phone] [place] [phone] tel:[phone] sulting [phone] Provider: NURSE [place] [facility] Encounter for Hang Referring [facility] surveillance of [place]. [address] Provider: [place] injectable [address], Tanya [place] contraceptive [place], [place], [place], [address]. [address] tel:[phone] [address], St, [place], [address] [place], [place], [address]. [id number], tel:[phone] [place] [phone] tel:[phone] Family History Family Member Diagnosis Age At Onset 1st degree relative No hx of coronary heart disease (female <65, male <55) 1st degree relative No hx of venous thromboembolism 1st degree relative No hx of osteoporosis 1st degree relative No hx of cancer of breast, colon, endometrium or ovary Immunizations Vaccine Date Status Comments No information Payers Payer name Insurance type Covered alliance party ID Authorization(s) Drew KATHY [facility] CI [id number] Social History Type Description Quantity Date Captured Comments Alcohol Use Details Unknown Caffeine Use Details Unknown Tobacco Use Status Smoking Status Light tobacco smoker Sex Female Vital Signs Date / Height Weight BMI Pulse Blood Temperature Respiratory Body Head BMI Pulse Inhaled Time: Rate Pressure Rate Surface Circumference percentile Ox Ox Area No information Chief Complaint And Reason For Visit No information Reason For Referral Reason For Referral No information Plan Of Treatment Date Type Action Status Goal Tobacco cessation counseling completed Goal Tobacco cessation counseling completed Goal Tobacco cessation counseling completed History Of Present Illness Encounter Date Complaint History Of Present Illness No information Functional Status Date Functional Assessment No information Medications Administered Medication Instructions Dosage Effective Dates (start - stop) Status Comments No information Instructions Date Instruction Additional Information No information Assessments Type Assessment Date assessment Encounter for surveillance of injectable contraceptive Goals Health Concern Goal Type Priority Status Date No information Medical Equipment Description Device Start Device Identifier Effective Dates (start - stop ) Status No information Mental Status Date Cognitive Assessment No information Health Concerns Observation Date No information Concern Status Date No information
[2018-07-22 11:00] VITALS: BP 145/89
== END 2018-07-22 10:58 | disposition home or self-care (01) ==
LOC: ED 08:40
DX: M54.30 Sciatica, unspecified side (principal); I10 Essential (primary) hypertension; E11.9 Type 2 diabetes mellitus without complications; J45.909 Unspecified asthma, uncomplicated; K58.9 Irritable bowel syndrome, unspecified; F17.210 Nicotine dependence, cigarettes, uncomplicated; Z88.6 Allergy status to analgesic agent; Z88.8 Allergy status to other drugs, medicaments and biological substances
CPT/HCPCS: 72100; 96374; 96375; 99282; A9270-GY; J1100; J1885; J2360

== ENCOUNTER 2018-09-03 19:38 | Emergency (ER) | payer OTHER ==
[2018-09-03] MEDS ORDERED: Ketorolac INJ* 30 MG/ML 1 ML VIAL IM ONE (21:43)
--- NOTE | 2018-09-03 21:56 | ED ---
Upper Extremity Pain - HPI Summary HPI Summary: Patient is a 38 year old female with c/o left shoulder pain beginning earlier today when her son pulled on her arm. She states 1 week ago she lifted a box at work and felt a pop in the left shoulder but had no residual pain until today. She denies numbness, tingling, and weakness of the LUE. She complains of limited range of motion d/t her pain. She has no other complaints at this time. - History of Current Complaint Chief Complaint: EDShoulderClavicleInj Stated Complaint: LEFT SHOULDER INJURY, ARM NUMB, NECK PAIN PER PT Time Seen by Provider: 09/03/18 21:01 Hx Obtained From: Patient Hx Last Menstrual Period: IRREG , NOT SURE LAST PERIOD, Patient is on depo Mechanism Of Injury: Other - Traction. Onset/Duration: Started Hours Ago Timing: Constant Severity Initially: Mild Pain Location: Shoulder Character: Throbbing Aggravating Factor(s): Movement Alleviating Factor(s): Rest - Allergies/Home Medications Allergies/Adverse Reactions: Allergies Allergy/AdvReac Type Severity Reaction Status Date / Time aspirin Allergy Vomiting Verified 09/03/18 19:47 chlorpromazine Allergy Swelling Verified 09/03/18 19:47 [From Thorazine] glipizide Allergy Blurred Verified 09/03/18 19:47 Vision PMH/Surg Hx/FS Hx/Imm Hx Endocrine/Hematology History: Reports: Hx Diabetes Denies: Hx Anticoagulant Therapy Cardiovascular History: Reports: Hx Hypertension, Other Cardiovascular Problems/ Disorders - born with hole in heart, HX of mumur as child. Denies: Hx Pacemaker/ICD Respiratory History: Reports: Hx Asthma - As a child Denies: Hx Chronic Obstructive Pulmonary Disease (COPD) GI History: Reports: Hx Irritable Bowel History: Denies: Hx Dialysis, Hx Renal Disease Musculoskeletal History: Reports: Other Musculoskeletal History - chronic back pain Denies: Hx Rheumatoid Arthritis, Hx Osteoporosis Sensory History: Reports: Hx Contacts or Glasses Opthamlomology History: Reports: Hx Contacts or Glasses Neurological History: Reports: Hx Headaches, Hx Migraine Denies: Other Neuro Impairments/Disorders Psychiatric History: Reports: Hx Panic Disorder - Surgical History Surgery Procedure, Year, and Place: FATTY LIPOMA OF RIGHT AXILLIA NOV 2013 - Immunization History Date of Tetanus Vaccine: unk Date of Influenza Vaccine: none Infectious Disease History: No Infectious Disease History: Denies: Traveled Outside the [place] in Last 30 Days - Family History Known Family History: Positive: Diabetes - father - Social History Alcohol Use: Rare Hx Substance Use: Yes Substance Use Type: Reports: Marijuana Substance Use Comment - Amount & Last Used: today, couple of hits Hx Tobacco Use: Yes Smoking Status (MU): Heavy Every Day Tobacco Smoker Type: Cigarettes Amount Used/How Often: 1 PPD Review of Systems Positive: Arthralgia - Left shoulder., Decreased ROM - Left shoulder. Negative: Weakness, Paresthesia, Numbness All Other Systems Reviewed And Are Negative: Yes Physical Exam Triage Information Reviewed: Yes Vital Signs On Initial Exam: Initial Vitals Temp Pulse Resp BP Pulse Ox 97.0 F 100 16 152/103 97 09/03/18 19:42 09/03/18 19:42 09/03/18 19:42 09/03/18 19:42 09/03/18 19:42 Vital Signs Reviewed: Yes Appearance: Positive: Well-Appearing. Negative: No Pain Distress Skin: Positive: Warm, Dry Head/Face: Positive: Normal Head/Face Inspection Eyes: Positive: Normal ENT: Positive: Normal ENT inspection Neck: Positive: Supple, Nontender Respiratory/Lung Sounds: Positive: Clear to Auscultation Cardiovascular: Positive: RRR Abdomen Description: Negative: Distended Musculoskeletal: Negative: Strength/ROM Intact - Limited ROM d/t pain in left shoulder. Neurological: Positive: Normal Psychiatric: Positive: Normal Diagnostics - Vital Signs Vital Signs Temp Pulse Resp BP Pulse Ox 09/03/18 19:42 97.0 F 100 16 152/103 97 - Laboratory Lab Statement: Any lab studies that have been ordered have been reviewed, and results considered in the medical decision making process. - Radiology shoulder Radiology Interpretation Completed By: ED Physician Summary of Radiographic Findings: no fracture Course/Dx - Course Course Of Treatment: 38-year-old female presents with left shoulder pain today. She states that has had pain for the past week and today her son grabbed her arm and it caused worsening pain and she states that it feels like her shoulder is catching. She is right-handed. 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 On exam tenderness of the shoulder. Limited range of motion of her head and behind shoulder. Neurovascular intact. X-ray shows no fracture. will give short course of muscle relaxer and sling for comfort. gave referral to ortho. patient understand and agrees with plan. - Diagnoses Differential Diagnosis/HQI/PQRI: Positive: Fracture (Closed), Strain, Sprain Provider Diagnoses: Left shoulder pain Discharge - Sign-Out/Discharge Documenting (check all that apply): Patient Departure Patient Received Moderate/Deep Sedation with Procedure: No - Discharge Plan Condition: Good Disposition: HOME Prescriptions: Cyclobenzaprine TAB* [Flexeril 10 MG TAB*] 10 mg PO TID PRN #15 tab PRN Reason: Pain Patient Education Materials: Shoulder Pain (ED) Referrals: Angel Elias MD [Medical Doctor] - Donny Rajan NP [Primary Care Provider] - Additional Instructions: Take Tylenol and ibuprofen every 6 hours as needed for pain take flexeril three times a pain Ice/heat Can rest for one day and then need to do range of motion activities follow up with ortho Return to ED if develop any new or worsening symptoms - Billing Disposition and Condition Condition: GOOD Disposition: Home
[2018-09-03] MEDS ORDERED: Cyclobenzaprine TAB* 10 MG PO ONE (22:35)
[2018-09-03 23:05] VITALS: BP 0/0
== END 2018-09-03 22:45 | disposition home or self-care (01) ==
LOC: ED 19:38
DX: M25.512 Pain in left shoulder (principal); F17.210 Nicotine dependence, cigarettes, uncomplicated; I10 Essential (primary) hypertension; E11.9 Type 2 diabetes mellitus without complications; Z86.79 Personal history of other diseases of the circulatory system; Z88.6 Allergy status to analgesic agent
CPT/HCPCS: 96372; 99282; A9270-GY; J1885

== ENCOUNTER 2018-11-26 02:29 | Emergency (ER) | payer OTHER ==
--- NOTE | 2018-11-26 03:06 | ED ---
Skin Complaint - HPI Summary HPI Summary: A 38 y/o female presents to [facility] with a chief complaint of possible spider bites on the right side of her neck. She has redness, swelling and itching in that area and notes that she has had some right sided ear pain. She says that her temperature is 99 but she usually has a temperature of 96-97. - History of Current Complaint Chief Complaint: EDRashSkinAbscess Time Seen by Provider: 11/26/18 02:57 Stated Complaint: EAR PAIN AFTER BITE PER PT Hx Obtained From: Patient Hx Last Menstrual Period: IRREG , NOT SURE LAST PERIOD, Patient is on depo Onset/Duration: Started Hours Ago, Still Present Skin Exposure Onset/Duration: Hours Ago Timing: Constant, Lasting Hours Onset Severity: Severe Current Severity: Severe Pain Intensity: 7 Pain Scale Used: 0-10 Numeric Skin Location: Ear - pain, Neck - right side Character: Swelling, Pruritus, Redness, Painful Aggravating Symptom(s): Nothing Alleviating Symptom(s): Nothing Associated Signs & Symptoms: Negative - fever - Allergy/Home Medications Allergies/Adverse Reactions: Allergies Allergy/AdvReac Type Severity Reaction Status Date / Time aspirin Allergy Vomiting Verified 11/26/18 02:44 chlorpromazine Allergy Swelling Verified 11/26/18 02:44 [From Thorazine] glipizide Allergy Blurred Verified 11/26/18 02:44 Vision PMH/Surg Hx/FS Hx/Imm Hx Endocrine/Hematology History: Reports: Hx Diabetes Denies: Hx Anticoagulant Therapy Cardiovascular History: Reports: Hx Hypertension, Other Cardiovascular Problems/ Disorders - born with hole in heart, HX of mumur as child. Denies: Hx Pacemaker/ICD Respiratory History: Reports: Hx Asthma - As a child Denies: Hx Chronic Obstructive Pulmonary Disease (COPD) GI History: Reports: Hx Irritable Bowel History: Denies: Hx Dialysis, Hx Renal Disease Musculoskeletal History: Reports: Other Musculoskeletal History - chronic back pain Denies: Hx Rheumatoid Arthritis, Hx Osteoporosis Sensory History: Reports: Hx Contacts or Glasses Opthamlomology History: Reports: Hx Contacts or Glasses Neurological History: Reports: Hx Headaches, Hx Migraine Denies: Other Neuro Impairments/Disorders Psychiatric History: Reports: Hx Panic Disorder - Surgical History Surgery Procedure, Year, and Place: FATTY LIPOMA OF RIGHT AXILLIA NOV 2013 - Immunization History Date of Tetanus Vaccine: unk Date of Influenza Vaccine: none Infectious Disease History: No Infectious Disease History: Denies: Traveled Outside the [place] in Last 30 Days - Family History Known Family History: Positive: Diabetes - father - Social History Alcohol Use: Rare Hx Substance Use: Yes Substance Use Type: Reports: Marijuana Substance Use Comment - Amount & Last Used: today, couple of hits Hx Tobacco Use: Yes Smoking Status (MU): Heavy Every Day Tobacco Smoker Type: Cigarettes Amount Used/How Often: 1 PPD Review of Systems Negative: Fever Positive: Ear Ache Positive: Other - positive: possible spider bites, redness, itching and swelling on right side of neck All Other Systems Reviewed And Are Negative: Yes Physical Exam - Summary Physical Exam Summary: Constitutional: Well-developed, Well-nourished, Alert. (-) Distressed Skin: Warm, Dry, 4 erythematous raised lesions on right jaw, 1 tender and more firm, no induration or fluctuance, Ear was tender and mildly erythematous on the canal only HENT: Normocephalic; Atraumatic Eyes: Conjunctiva normal Neck: Musculoskeletal ROM normal neck. (-) JVD, (-) Stridor, (-) Tracheal deviation Cardio: Rhythm regular, rate normal, Heart sounds normal; Intact distal pulses; The pedal pulses are 2+ and symmetric. Radial pulses are 2+ and symmetric. (-) Murmur Pulmonary/Chest wall: Effort normal. (-) Respiratory distress, (-) Wheezes, (-) Rales Abd: Soft, (-) tenderness, (-) Distension, (-) Guarding, (-) Rebound Musculoskeletal: (-) Edema Lymph: (-) Cervical adenopathy Neuro: Alert, Oriented x3 Psych: Mood and affect Normal Triage Information Reviewed: Yes Vital Signs On Initial Exam: Initial Vitals Temp Pulse Resp BP Pulse Ox 99.6 F 106 20 162/116 95 11/26/18 02:30 11/26/18 02:30 11/26/18 02:30 11/26/18 02:30 11/26/18 02:30 Vital Signs Reviewed: Yes Diagnostics - Vital Signs Vital Signs Temp Pulse Resp BP Pulse Ox 11/26/18 02:30 99.6 F 106 20 162/116 95 - Laboratory Lab Statement: Any lab studies that have been ordered have been reviewed, and results considered in the medical decision making process. Course/Dx - Course Course Of Treatment: A 38 y/o female presents to [facility] with a chief complaint of possible spider bites on the right side of her neck. She has redness, swelling and itching in that area and notes that she has had some right sided ear pain. She is not febrile in the ED. The physical exam revealed 4 erythematous raised lesions on right jaw, 1 tender and more firm, no induration or fluctuance, Ear was tender and mildly erythematous on the canal only. In the ED course the patient was given Ciprodex drops, Cleocin PO and Benadryl PO. The patient will be discharged home with a prescription for Clindamycin and follow up with her PCP. The patient is agreeable with this plan. - Diagnoses Provider Diagnoses: Bug bite with infection, Otitis externa, Cellulitis Discharge - Sign-Out/Discharge Documenting (check all that apply): Patient Departure - DC Patient Received Moderate/Deep Sedation with Procedure: No - Discharge Plan Condition: Stable Disposition: HOME Prescriptions: Clindamycin Cap(NF) [Clindamycin Cap 300 mg Cap(NF)] 300 mg PO TID 10 Days cap Clindamycin HCl 300 mg PO TID #30 capsule Patient Education Materials: Cellulitis (ED), Otitis Externa (ED), Insect Bite or Sting (ED) Print Language: CZECH Referrals: Donny Rajan CONCRETE FORM SETTER [Primary Care Provider] - - Billing Disposition and Condition Condition: STABLE Disposition: Home - Attestation Statements Document Initiated by Christina: Yes Documenting Scribe: Aleks Ocampo Provider For Whom Christina is Documenting (Include Credential): Genna Marin MD Scribe Attestation: Aleks Celaya scribed for Genna Rendon MD on 11/26/18 at 0649. Scribe Documentation Reviewed: Yes Provider Attestation: The documentation as recorded by the Aleks gunter accurately reflects the service I personally performed and the decisions made by me, Genna Rendon MD Status of Scribyana Document: Viewed
[2018-11-26] MEDS ORDERED: Clindamycin CAP* 150 MG PO ONE (03:09)
[2018-11-26] MEDS ORDERED: Ciproflox/Dexameth OTIC.SUSP* 7.5 ML BTL RIGHT EAR ONE (03:09)
[2018-11-26] MEDS ORDERED: diPHENhydraMINE PO* 50 MG PO ONE (03:19)
[2018-11-26 04:02] VITALS: BP 0/0
== END 2018-11-26 03:55 | disposition home or self-care (01) ==
LOC: ED 02:29
DX: S10.96XA Insect bite of unspecified part of neck, initial encounter (principal); L03.221 Cellulitis of neck; H60.91 Unspecified otitis externa, right ear; W57.XXXA Bitten or stung by nonvenomous insect and other nonvenomous arthropods, initial encounter; Y92.9 Unspecified place or not applicable; E11.9 Type 2 diabetes mellitus without complications; I10 Essential (primary) hypertension; F17.210 Nicotine dependence, cigarettes, uncomplicated; Z88.6 Allergy status to analgesic agent; Z88.8 Allergy status to other drugs, medicaments and biological substances
CPT/HCPCS: 99282; A9270-GY

== ENCOUNTER 2018-12-28 12:34 | Emergency (ER) | payer OTHER ==
--- OUTSIDE RECORDS SUMMARY | 2018-12-28 13:06 | XMS REPORT | Continuity of Care Document ---
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 [phone] Medicine Problems Active Problems Provider Date Type 2 diabetes mellitus Donny Rajan NP Onset: 10/27/2016 Social History Type Date Description Comments Sex Unknown Tobacco Use Start: Unknown Never Smoked Cigars Tobacco Use Start: Unknown Never Smoked A Pipe Smokeless Tobacco Never Used Smokeless Tobacco ETOH Use Denies alcohol use Tobacco Use Start: Unknown Heavy tobacco smoker Smokes 1/2-1.5 ppd; (more than 9 Started age 9; quit cigarettes/day) a few times Recreational Drug Use Current Drug User Marijuana frequently Smoking Status Reviewed: 12/24/18 Heavy tobacco smoker Smokes 1/2-1.5 ppd; (more than 9 Started age 9; quit cigarettes/day) a few times Exercise Type/Frequency Exercises regularly Allergies, Adverse Reactions, Alerts Active Allergies Reaction Severity Comments Date Aspirin 06/29/2012 Glipizide 06/29/2012 Thorazine 06/29/2012 Metformin GI upset Moderate 10/24/2016 Janumet GI upset Moderate 10/24/2016 Meloxicam 08/29/2017 Medications Active Medications SIG Qnty Indications Ordering Date Provider Chantix Starting one 0.5 mg tab every QS F17.210 Donny Rajan NP 12/24/2018 Month Cy day for 3 days, one 0.5mg X 0.5 mg tab twice a 11 & 1 mg X 42 day for 4 days, one 1 Tablets mg tab twice a day every day after Chantix Continuing 1 by mouth twice a 60tabs F17.210 Donny Rajan NP 2018 day 1mg Tablets Ibuprofen take one tablet by 60tabs M54.5 Donny Rajan NP 12/24/2018 600mg mouth three times a Tablets day as needed with food Tizanidine HCL 1 three times a day 60caps M54.5 Donny Rajan NP 12/24/2018 as needed 4mg Capsules Mometasone Furoate 2 sprays each nostril 51gm H69.90 Donny Rajan NP 2018 once daily 50mcg/Act Suspension Fluconazole one by mouth august 3tabs B37.9 Donny Rajan NP 05/23/2017 150mg repeat in 3 days as Tablets needed Tramadol HCL 1-2 tablets every 8 42tabs M79.644 Donny Rajan NP 05/23/2017 50mg hours as needed for Tablets pain. [place] /" use with basaglar and 100units Donny Rajan NP 2016 novolog subq everyday 31G X 5 mm Misc Ventolin HFA Take 2 Puffs 4 Times 18units R06.02 Donny Rajan NP 10/24/2016 A Day as Needed 108(90Base) mcg/Act Aerosol Onetouch Ultra 2 check blood sugar 3 1units Donny Rajan NP times daily and as w/Device Kit needed Onetouch Delica test three times 200units Donny Rajan NP Lancets Fine 30G daily or as needed 30G Misc Onetouch Ultra test up to three 150units E11.9 Donny Rajan NP Blue times a day or as Strips directed Melatonin 1-2 by mouth every Unknown 5mg night Capsules Benadryl Allergy 1-2 tabs at bedtime Unknown prn 25mg Tablets Basaglar Kwikpen Inject 100 Units Unknown Subcutaneously Every 100Unit/ML Day Solution Pen-Inject Novolog Flexpen Inject 10-20 Units Unknown Before Meals 100Unit/ML Subcutaneous Three Solution Times A Day Pen-Inject Medications Administered in Office Medication SIG Qnty Indications Ordering Provider Date Depomedrol 40MG Isaiah Lazar MD 08/29/2017 Injection Celestone 3 mg and 3mg Isaiah Lazar MD 05/30/2017 Injection Immunizations Description No Information Available Vital Signs Date Vital Result Comment 12/24/2018 8:55am Height 62.5 inches 5'2.50" Weight 235.00 lb Heart Rate 102 /min BP Systolic Sitting 130 mmHg BP Diastolic Sitting 87 mmHg Body Temperature 98.3 F O2 % BldC Oximetry 96 % BMI (Body Mass Index) 42.3 kg/m2 03/27/2018 1:41pm Height 62.5 inches 5'2.50" Weight 218.00 lb Heart Rate 110 /min BP Systolic 111 mmHg BP Diastolic 73 mmHg O2 % BldC Oximetry 94 % BMI (Body Mass Index) 39.2 kg/m2 Results Description No Information Available Procedures Date Code Description Status 03/27/2017 [id number] Diabetic Retinal Eye Exam Completed Medical Devices Description No Information Available Encounters Description No Information Available Assessments Date Code Description Provider 12/24/2018 R22.2 Localized swelling, mass and lump, trunk Donny Rajan, MARKY 12/24/2018 F17.210 Nicotine dependence, cigarettes, uncomplicated Donny Rajan NP 12/24/2018 M54.5 Low back pain Donny Rajan NP Plan of Treatment 12/24/2018 - Donny Rajan, NPR22.2 Localized swelling, mass and lump, trunkNew Xrays:US Soft Tissue, Ordered: 12/24/18Referral:Destin Torres MD, Surgery, PsffbhtF46.210 Nicotine dependence, cigarettes, uncomplicatedNew Medication: Chantix Starting Month Cy 0.5 mg X 11 & 1 mg X 42 - one 0.5 mg tab every day for 3 days, one 0.5 mg tab twice a day for 4 days, one 1 mg tab twice a day every day afterChantix Continuing Month Cy 1 mg - 1 by mouth twice a dayM54.5 Low back painNew Medication:Ibuprofen 600 mg - take one tablet by mouth three times a day as needed with foodTizanidine HCL 4 mg - 1 three times a day as neededNew Therapy:Physical TherapyComments:Take 600mg ibuprofen every 8 hours with food. Try using the Tizanidine when needed. This may make you tired. Functional Status Description No Information Available Mental Status Description No Information Available Referrals Refer to Reason for Referral Status Appt Date Destin Torres MD Sent [address] [facility] [address] [phone]
[2018-12-28 14:08] LABS: ABS Basophils 0.1 10^3/ul (0-0.2); ABS Eosinophils 0.1 10^3/ul (0-0.6); ABS Lymphocytes 2.8 10^3/ul (1.0-4.8); ABS Monocytes 0.8 10^3/ul (0-0.8); ABS Neutrophils 7.9 10^3/ul (1.5-7.7); Eosinophil % 0.6 %; Hematocrit 46 % (35-47); Hemoglobin 15.7 g/dL (12.0-16.0); Lymphocyte % 23.6 %; Mean Corpuscular HGB Conc 34 g/dL (31-36); Mean Corpuscular Hemoglobin 29 pg (27-31); Mean Corpuscular Volume 85 fL (80-97); Mean Platelet Volume 8.1 fL (7.4-10.4); Platelet Count 330 10^3/uL (150-450); Red Blood Count 5.35 10^6 /uL (3.70-4.87); Red Cell Distribution Width 14 % (10-15); White Blood Count 11.7 10^3/uL (3.5-10.8)
[2018-12-28 14:25] LABS: ALT 24 U/L (7-52); AST 15 U/L (13-39); Albumin/Globulin Ratio 1.5 (1-3); Alkaline Phosphatase 81 U/L (34-104); Anion Gap 3 mmol/L (2-11); BUN/Creatinine Ratio 19.4 (8-20); Blood Urea Nitrogen 13 mg/dL (6-24); C Reactive Protein 7.81 mg/L (<8.01); CO2 Carbon Dioxide 30 mmol/L (22-32); Calcium 9.3 mg/dL (8.6-10.3); Chloride 103 mmol/L (101-111); EGFR African American 118.6 (>60); Globulin 2.7 g/dL (2-4); Glucose 272 mg/dL (70-100); Potassium 4.1 mmol/L (3.5-5.0); Sodium 136 mmol/L (135-145); Total Protein 6.7 g/dL (6.4-8.9)
[2018-12-28] MEDS ORDERED: NS 0.9% 1000 ML** 1,000 ML IV ONE (15:04)
--- NOTE | 2018-12-28 15:41 | ED ---
HPI Diabetic - HPI Summary HPI Summary: This pt is a 38 y/o female, with hx of DM type 2, presenting to [facility] c/o elevated blood glucose for the last few days. Pt reports she has not been feeling well with symptoms of weakness, fatigue, shaky, cold with chills, dizziness, lightheadedness. 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 Additionally she notes she has had a cough and myalgia. Pt allergic to glipizide, thorazine, and aspirin (prefers not to take aspirin as it "makes body feel weird"). - History Of Current Complaint Chief Complaint: EDDiabeticProb Time Seen by Provider: 12/28/18 15:04 Hx Obtained From: Patient Hx Last Menstrual Period: IRREG , NOT SURE LAST PERIOD, Patient is on depo Onset/Duration: Lasting Days, Still Present Timing: Days Severity Currently: Moderate Character: Alert Aggravating: Nothing Alleviating: Nothing Associated Signs & Symptoms: Cough Related History: Compliant, DM II - Allergies/Home Medications Allergies/Adverse Reactions: Allergies Allergy/AdvReac Type Severity Reaction Status Date / Time aspirin Allergy Vomiting Verified 11/26/18 02:44 chlorpromazine Allergy Swelling Verified 11/26/18 02:44 [From Thorazine] glipizide Allergy Blurred Verified 11/26/18 02:44 Vision PMH/Surg Hx/FS Hx/Imm Hx Endocrine/Hematology History: Reports: Hx Diabetes - Type 2 Denies: Hx Anticoagulant Therapy Cardiovascular History: Reports: Hx Hypertension, Other Cardiovascular Problems/ Disorders - born with hole in heart, HX of mumur as child. Denies: Hx Pacemaker/ICD Respiratory History: Reports: Hx Asthma - As a child Denies: Hx Chronic Obstructive Pulmonary Disease (COPD) GI History: Reports: Hx Irritable Bowel History: Denies: Hx Dialysis, Hx Renal Disease Musculoskeletal History: Reports: Other Musculoskeletal History - chronic back pain Denies: Hx Rheumatoid Arthritis, Hx Osteoporosis Sensory History: Reports: Hx Contacts or Glasses Opthamlomology History: Reports: Hx Contacts or Glasses Neurological History: Reports: Hx Headaches, Hx Migraine Denies: Other Neuro Impairments/Disorders Psychiatric History: Reports: Hx Panic Disorder - Surgical History Surgery Procedure, Year, and Place: FATTY LIPOMA OF RIGHT AXILLIA NOV 2013 - Immunization History Date of Tetanus Vaccine: unk Date of Influenza Vaccine: none Infectious Disease History: No Infectious Disease History: Denies: Traveled Outside the [place] in Last 30 Days - Family History Known Family History: Positive: Diabetes - father - Social History Alcohol Use: Rare Hx Substance Use: Yes Substance Use Type: Reports: Marijuana Substance Use Comment - Amount & Last Used: today, couple of hits Hx Tobacco Use: Yes Smoking Status (MU): Heavy Every Day Tobacco Smoker Type: Cigarettes Amount Used/How Often: 1 PPD Review of Systems Constitutional: Other - POSITIVE: cold, shaky Positive: Chills, Fatigue. Negative: Fever Positive: Cough Positive: Myalgia Neurological: Other - POSITIVE: dizziness, lightheadednesss Positive: Weakness All Other Systems Reviewed And Are Negative: Yes Physical Exam - Summary Physical Exam Summary: GENERAL: Patient is a well-developed and nourished female who is lying comfortable in the stretcher. Patient is not in any acute respiratory distress. HEAD AND FACE: Normocephalic EYES: PERRLA, EOMI x 2. EARS: Hearing grossly intact. MOUTH: Oropharynx within normal limits. NECK: Supple, trachea is midline, no adenopathy, no JVD, no carotid bruit. CHEST: Symmetric, no tenderness at palpation LUNGS: Clear to auscultation bilaterally. No wheezing or crackles. CVS: Regular rate and rhythm, S1 and S2 present, no murmurs or gallops appreciated. ABDOMEN: Soft, non-tender. Bowel sounds are normal. No abnormal abdominal pulsations. EXTREMITIES: Full ROM in all major joints, no edema, no cyanosis or clubbing. NEURO: Alert and oriented x 3. No acute neurological deficits. Speech is normal and follows commands. SKIN: Dry and warm Triage Information Reviewed: Yes Vital Signs On Initial Exam: Initial Vitals Temp Pulse Resp BP Pulse Ox 97.4 F 101 24 117/94 94 12/28/18 12:39 12/28/18 12:39 12/28/18 12:39 12/28/18 12:39 12/28/18 12:39 Vital Signs Reviewed: Yes Diagnostics - Vital Signs Vital Signs Temp Pulse Resp BP Pulse Ox 12/28/18 14:23 98.0 F 95 20 142/89 95 12/28/18 12:39 97.4 F 101 24 117/94 94 - Laboratory Lab Results: Lab Results 0912/28/18 12/28/18 Range/Units 12:44 13:56 13:56 WBC 11.7 H (3.5-10.8) 10^3/uL RBC 5.35 H (3.70-4.87) 10^6 /uL Hgb 15.7 (12.0-16.0) g/dL Hct 46 (35-47) % MCV 85 (80-97) fL MCH 29 (27-31) pg MCHC 34 (31-36) g/dL RDW 14 (10-15) % Plt Count 330 (150-450) 10^3/uL MPV 8.1 (7.4-10.4) fL Neut % (Auto) 68.0 % Lymph % (Auto) 23.6 % [place] % (Auto) 7.3 % Eos % (Auto) 0.6 % Baso % (Auto) 0.5 % Absolute Neuts (auto) 7.9 H (1.5-7.7) 10^3/ul Absolute Lymphs (auto) 2.8 (1.0-4.8) 10^3/ul Absolute Monos (auto) 0.8 (0-0.8) 10^3/ul Absolute Eos (auto) 0.1 (0-0.6) 10^3/ul Absolute Basos (auto) 0.1 (0-0.2) 10^3/ul Absolute Nucleated RBC 0.0 10^3/ul Nucleated RBC % 0.0 VBG pH (7.32-7.43) VBG pCO2 (41-51) mmHg VBG pO2 (35-45) mmHg VBG HCO3 (24-28) mmol/L VBG O2 Saturation (70-80) % VBG Base Excess (0.0-4.0) mmol/L Sodium 136 (135-145) mmol/L Potassium 4.1 (3.5-5.0) mmol/L Chloride 103 (101-111) mmol/L Carbon Dioxide 30 (22-32) mmol/L Anion Gap 3 (2-11) mmol/L BUN 13 (6-24) mg/dL Creatinine 0.67 (0.51-0.95) mg/dL Est GFR ( Amer) 118.6 (>60) Est GFR (Non-Af Amer) 98.0 (>60) BUN/Creatinine Ratio 19.4 (8-20) Glucose 272 H (70-100) mg/dL POC Glucose (mg/dL) 341 H (70-100) mg/dL Lactic Acid (0.5-2.0) mmol/L Calcium 9.3 (8.6-10.3) mg/dL Total Bilirubin 0.30 (0.2-1.0) mg/dL AST 15 (13-39) U/L ALT 24 (7-52) U/L Alkaline Phosphatase 81 (34-104) U/L C-Reactive Protein 7.81 (<8.01) mg/L Total Protein 6.7 (6.4-8.9) g/dL Albumin 4.0 (3.2-5.2) g/dL Globulin 2.7 (2-4) g/dL Albumin/Globulin Ratio 1.5 (1-3) 12/28/18 12/28/18 Range/Units 13:56 13:56 WBC (3.5-10.8) 10^3/uL RBC (3.70-4.87) 10^6 /uL Hgb (12.0-16.0) g/dL Hct (35-47) % MCV (80-97) fL MCH (27-31) pg MCHC (31-36) g/dL RDW (10-15) % Plt Count (150-450) 10^3/uL MPV (7.4-10.4) fL Neut % (Auto) % Lymph % (Auto) % [place] % (Auto) % Eos % (Auto) % Baso % (Auto) % Absolute Neuts (auto) (1.5-7.7) 10^3/ul Absolute Lymphs (auto) (1.0-4.8) 10^3/ul Absolute Monos (auto) (0-0.8) 10^3/ul Absolute Eos (auto) (0-0.6) 10^3/ul Absolute Basos (auto) (0-0.2) 10^3/ul Absolute Nucleated RBC 10^3/ul Nucleated RBC % VBG pH 7.41 (7.32-7.43) VBG pCO2 48 (41-51) mmHg VBG pO2 < 38.0 (35-45) mmHg VBG HCO3 27.1 (24-28) mmol/L VBG O2 Saturation 41.7 L (70-80) % VBG Base Excess 4.8 H (0.0-4.0) mmol/L Sodium (135-145) mmol/L Potassium (3.5-5.0) mmol/L Chloride (101-111) mmol/L Carbon Dioxide (22-32) mmol/L Anion Gap (2-11) mmol/L BUN (6-24) mg/dL Creatinine (0.51-0.95) mg/dL Est GFR ( Amer) (>60) Est GFR (Non-Af Amer) (>60) BUN/Creatinine Ratio (8-20) Glucose (70-100) mg/dL POC Glucose (mg/dL) (70-100) mg/dL Lactic Acid 1.2 (0.5-2.0) mmol/L Calcium (8.6-10.3) mg/dL Total Bilirubin (0.2-1.0) mg/dL AST (13-39) U/L ALT (7-52) U/L Alkaline Phosphatase (34-104) U/L C-Reactive Protein (<8.01) mg/L Total Protein (6.4-8.9) g/dL Albumin (3.2-5.2) g/dL Globulin (2-4) g/dL Albumin/Globulin Ratio (1-3) Result Diagrams: 12/28/18 13:56 12/28/18 13:56 Lab Statement: Any lab studies that have been ordered have been reviewed, and results considered in the medical decision making process. - Radiology Chest XR Radiology Interpretation Completed By: Radiologist Summary of Radiographic Findings: IMPRESSION: No active cardiopulmonary disease. Dr. Archer has reviewed this report. Diabetic Course/Dx - Course Assessment/Plan: Pt is a 38 y/o female, with hx of DM type 2, presenting to [facility] c/o elevated blood glucose for the last few days. Lab results remarkable except for WBC of 11.7, glucose of 272. Influenza A and B are both negative. Chest XR is negative for an active cardiopulmonary disease. Urinalysis is consistent with a UTI. I discussed results with patient and she reports feeling better. She is hemodynamically stable and safe for discharge. Strict return precautions given and she will otherwise follow up with her PCP. - Diagnoses Provider Diagnoses: Hyperglycemia, UTI (urinary tract infection) Discharge ED - Sign-Out/Discharge Documenting (check all that apply): Patient Departure - Discharge home Patient Received Moderate/Deep Sedation with Procedure: No - Discharge Plan Condition: Stable Disposition: HOME Prescriptions: Cephalexin CAP* [Keflex CAP*] 500 mg PO BID 7 Days #14 cap Patient Education Materials: Urinary Tract Infection in Women (ED), Diabetic Hyperglycemia (ED) Forms: *Work Release Referrals: Ethel Quick MD [Primary Care Provider] - Additional Instructions: Follow up with your primary care physician in 1-3 days. RETURN TO THE EMERGENCY DEPARTMENT FOR CHANGING OR WORSENING SYMPTOMS. - Billing Disposition and Condition Condition: STABLE Disposition: Home - Attestation Statements Document Initiated by Scribe: Yes Documenting Scribe: Pippa Bagley Provider For Whom Christina is Documenting (Include Credential): Nkechi Archer MD Scribe Attestation: Pippa Celaya, scribed for Nkechi Archer MD on 12/28/18 at 2104. Scribe Documentation Reviewed: Yes Provider Attestation: The documentation as recorded by the Pippa gunter accurately reflects the service I personally performed and the decisions made by , Nkechi Archer MD Status of Scribe Document: Viewed
[2018-12-28 15:59] LABS: Influenza A Molecular NEGATIVE (Negative); Influenza B Molecular NEGATIVE (Negative)
[2018-12-28 16:00] LABS: HCG Pregnancy < 0.60 mIU/mL
[2018-12-28 17:44] LABS: Urine Appearance Cloudy; Urine Bacteria 3+ (Absent); Urine Bilirubin Negative (Negative); Urine Blood Negative (Negative); Urine Color Yellow; Urine Glucose 2+(150 mg/dL) (Negative); Urine Ketones Negative (Negative); Urine Nitrite Negative (Negative); Urine Protein 1+(30 mg/dL) (Negative); Urine Red Blood Cell Trace(0-2/hpf) (Absent); Urine Specific Gravity 1.024 (1.010-1.030); Urine Squamous Epithelial Cell Present (Absent); Urine Urobilinogen Negative (Negative); Urine White Blood Cell 1+(6-10/hpf) (Absent)
[2018-12-28] MEDS ORDERED: Cephalexin CAP* 500 MG PO ONE (18:02)
[2018-12-28 18:17] VITALS: BP 133/93
== END 2018-12-28 18:06 | disposition home or self-care (01) ==
LOC: ED 12:34
DX: N39.0 Urinary tract infection, site not specified (principal); E11.65 Type 2 diabetes mellitus with hyperglycemia; I10 Essential (primary) hypertension; R05 Cough; R53.83 Other fatigue
CPT/HCPCS: 36415; 71045; 80053; 81003; 81015; 82803; 83605; 84702; 85025; 86140; 87086; 96360; 99282; A9270-GY

== ENCOUNTER 2019-01-02 14:24 | Emergency (ER) | payer OTHER ==
--- NOTE | 2019-01-02 14:34 | ED ---
Abdominal Pain/Female - HPI Summary HPI Summary: 38 yo female presents to [facility] ED with low back pain. She tells me that she has a history of low back pain, but this is usually sciatica down her right leg. Over the last 2 days has had b/l lower back pain that is worse with movement. She has tramadol at home that she is prescribed for chronic back pain, but has not been taking this. She is concerned that her pain is due to her kidneys as she was here on 12/28 and told she had a UTI and placed on keflex for this - she had no urinary symptoms at that time and has not had any urinary symptoms since. She denies new injury, fever, chills, abdominal pain, n/v, dysuria, saddle anesthesia, numbness, or loss of bowel/bladder control. - History of Current Complaint Chief Complaint: EDFlankPain Stated Complaint: FLANK/ABD PAIN PER PT Time Seen by Provider: 01/02/19 14:33 Hx Obtained From: Patient Hx Last Menstrual Period: IRREG , NOT SURE LAST PERIOD, Patient is on depo Onset/Duration: Sudden Onset Severity Initially: Severe Severity Currently: Severe Pain Intensity: 8 Pain Scale Used: Adult Non Verbal Allergies/Adverse Reactions: Allergies Allergy/AdvReac Type Severity Reaction Status Date / Time aspirin Allergy Vomiting Verified 01/02/19 14:31 chlorpromazine Allergy Swelling Verified 01/02/19 14:31 [From Thorazine] glipizide Allergy Blurred Verified 01/02/19 14:31 Vision PMH/Surg Hx/FS Hx/Imm Hx Endocrine/Hematology History: Reports: Hx Diabetes - Type 2 Denies: Hx Anticoagulant Therapy Cardiovascular History: Reports: Hx Hypertension, Other Cardiovascular Problems/ Disorders - born with hole in heart, HX of mumur as child. Denies: Hx Pacemaker/ICD Respiratory History: Reports: Hx Asthma - As a child Denies: Hx Chronic Obstructive Pulmonary Disease (COPD) GI History: Reports: Hx Irritable Bowel History: Denies: Hx Dialysis, Hx Renal Disease Musculoskeletal History: Reports: Other Musculoskeletal History - chronic back pain Denies: Hx Rheumatoid Arthritis, Hx Osteoporosis Sensory History: Reports: Hx Contacts or Glasses Opthamlomology History: Reports: Hx Contacts or Glasses Neurological History: Reports: Hx Headaches, Hx Migraine Denies: Other Neuro Impairments/Disorders Psychiatric History: Reports: Hx Panic Disorder - Surgical History Surgery Procedure, Year, and Place: FATTY LIPOMA OF RIGHT AXILLIA NOV 2013 - Immunization History Date of Tetanus Vaccine: unk Date of Influenza Vaccine: none Infectious Disease History: No Infectious Disease History: Denies: Traveled Outside the [place] in Last 30 Days - Family History Known Family History: Positive: Diabetes - father - Social History Lives: With Family Alcohol Use: Rare Hx Substance Use: Yes Substance Use Type: Reports: Marijuana Substance Use Comment - Amount & Last Used: today, couple of hits Hx Tobacco Use: Yes Smoking Status (MU): Heavy Every Day Tobacco Smoker Type: Cigarettes Amount Used/How Often: 1 PPD Review of Systems Constitutional: Negative Cardiovascular: Negative Respiratory: Negative Gastrointestinal: Negative Genitourinary: Negative Musculoskeletal: Other - Low back pain Skin: Negative Neurological: Negative Psychological: Normal All Other Systems Reviewed And Are Negative: No Physical Exam - Summary Physical Exam Summary: GENERAL: NAD. WDWN. SKIN: No rashes, sores, lesions, or open wounds. NECK: Supple. FROM. Nontender. No lymphadenopathy. CHEST: CTAB. No r/r/w. No accessory muscle use. Breathing comfortably and in no distress. CV: RRR. Without m/r/g. Pulses intact. Cap refill <2seconds ABDOMEN: Soft. NTTP. No distention or guarding. No CVA tenderness. Bowel sounds present MSK: TTP over lumbar paraspinal muscles. Pain with flexion and extension of spine. Positive SLR b/l for low back pain without radiation. Strength 5/5 B/L LEs including dorsiflexion and plantar flexion. FROM B/L LEs. No edema. NEURO: Alert. Sensations intact B/L LEs L3-S1. Reflexes intact PSYCH: Age appropriate behavior. Triage Information Reviewed: Yes Vital Signs On Initial Exam: Initial Vitals Temp Pulse Resp BP Pulse Ox 98.7 F 105 18 136/82 96 01/02/19 14:26 01/02/19 14:26 01/02/19 14:26 01/02/19 14:26 01/02/19 14:26 Vital Signs Reviewed: Yes Diagnostics - Vital Signs Vital Signs Temp Pulse Resp BP Pulse Ox 01/02/19 14:26 98.7 F 105 18 136/82 96 - Laboratory Lab Results: Laboratory Tests 01/02/19 01/02/19 01/02/19 14:35 14:55 14:55 WBC 10.9 H RBC 5.32 H Hgb 15.2 Hct 46 MCV 87 MCH 29 MCHC 33 RDW 14 Plt Count 330 MPV 8.1 Neut % (Auto) 65.9 Lymph % (Auto) 26.6 [place] % (Auto) 6.3 Eos % (Auto) 0.5 Baso % (Auto) 0.7 Absolute Neuts (auto) 7.2 Absolute Lymphs (auto) 2.9 Absolute Monos (auto) 0.7 Absolute Eos (auto) 0.1 Absolute Basos (auto) 0.1 Absolute Nucleated RBC 0.0 Nucleated RBC % 0.0 Sodium 138 Potassium 3.5 Chloride 104 Carbon Dioxide 29 Anion Gap 5 BUN 9 Creatinine 0.64 Est GFR ( Amer) 125.0 Est GFR (Non-Af Amer) 103.3 BUN/Creatinine Ratio 14.1 Glucose 175 H Lactic Acid Calcium 8.7 Total Bilirubin 0.30 AST 13 ALT 23 Alkaline Phosphatase 67 C-Reactive Protein 5.43 Total Protein 6.4 Albumin 3.8 Globulin 2.6 Albumin/Globulin Ratio 1.5 Lipase 25 Beta HCG, Quant 0.75 Urine Color Yellow Urine Appearance Cloudy Urine pH 6.0 Ur Specific [place] 1.030 Urine Protein Negative Urine Ketones Negative Urine Blood Negative Urine Nitrate Negative Urine Bilirubin Negative Urine Urobilinogen Negative Ur Leukocyte Esterase Negative Urine Glucose 3+(>=500 mg/dl) A 01/02/19 14:55 WBC RBC Hgb Hct MCV MCH MCHC RDW Plt Count MPV Neut % (Auto) Lymph % (Auto) [place] % (Auto) Eos % (Auto) Baso % (Auto) Absolute Neuts (auto) Absolute Lymphs (auto) Absolute Monos (auto) Absolute Eos (auto) Absolute Basos (auto) Absolute Nucleated RBC Nucleated RBC % Sodium Potassium Chloride Carbon Dioxide Anion Gap BUN Creatinine Est GFR ( Amer) Est GFR (Non-Af Amer) BUN/Creatinine Ratio Glucose Lactic Acid 1.1 Calcium Total Bilirubin AST ALT Alkaline Phosphatase C-Reactive Protein Total Protein Albumin Globulin Albumin/Globulin Ratio Lipase Beta HCG, Quant Urine Color Urine Appearance Urine pH Ur Specific [place] Urine Protein Urine Ketones Urine Blood Urine Nitrate Urine Bilirubin Urine Urobilinogen Ur Leukocyte Esterase Urine Glucose Result Diagrams: 01/02/19 14:55 01/02/19 14:55 Lab Statement: Any lab studies that have been ordered have been reviewed, and results considered in the medical decision making process. - CT abd/pelv CT Interpretation Completed By: Radiologist Summary of CT Findings: IMPRESSION: 1. NO EVIDENCE FOR ACUTE FINDING. 2. HEPATOMEGALY AND HEPATIC STEATOSIS. Abdominal Pain Fem Course/Dx - Course Course Of Treatment: CT scan to eval for stone or hydronephrosis - negative as above. Labwork and urine WNL and urine does not reveal any infectious process. Her glucose is much improved from a few days ago. Discussed results with pt and that her exam seems to correlate more to an MSK lower back pain that is likely acute on chronic in nature. She was given percocet po in the ED for her pain with great relief. She was ambulatory and says she feels much improved and is asking to go home. Will dc with #3 percocet to take at bedtime and advise her to f/u with her PCP for a recheck of her pain early next week - Diagnoses Provider Diagnoses: Low back pain Discharge ED - Sign-Out/Discharge Documenting (check all that apply): Patient Departure Patient Received Moderate/Deep Sedation with Procedure: No - Discharge Plan Condition: Stable Disposition: HOME Prescriptions: oxyCODONE/Acetamin 5/325 MG* [Percocet 5/325 TAB*] 1 tab PO BEDTIME PRN #3 tab MDD 1 PRN Reason: Pain - Severe Patient Education Materials: Chronic Back Pain (DC) Forms: *Work Release Referrals: Ethel Quick MD [Primary Care Provider] - 3 Days Additional Instructions: If you develop a fever, shortness of breath, chest pain, new or worsening symptoms - please call your PCP or go to the ED immediately. Your blood pressure was high at todays visit. Please see your primary provider within 4 weeks for recheck and re-evaluation. I recommend that you schedule a follow up with your primary doctor for early next week for a recheck of your pain - Billing Disposition and Condition Condition: STABLE Disposition: Home
[2019-01-02 14:59] LABS: Urine Appearance Cloudy; Urine Bilirubin Negative (Negative); Urine Blood Negative (Negative); Urine Color Yellow; Urine Glucose 3+(>=500 mg/dL) (Negative); Urine Ketones Negative (Negative); Urine Nitrite Negative (Negative); Urine Protein Negative (Negative); Urine Urobilinogen Negative (Negative)
[2019-01-02 15:05] LABS: ABS Basophils 0.1 10^3/ul (0-0.2); ABS Eosinophils 0.1 10^3/ul (0-0.6); ABS Lymphocytes 2.9 10^3/ul (1.0-4.8); ABS Monocytes 0.7 10^3/ul (0-0.8); ABS Neutrophils 7.2 10^3/ul (1.5-7.7); Eosinophil % 0.5 %; Hematocrit 46 % (35-47); Hemoglobin 15.2 g/dL (12.0-16.0); Lymphocyte % 26.6 %; Mean Corpuscular HGB Conc 33 g/dL (31-36); Mean Corpuscular Hemoglobin 29 pg (27-31); Mean Corpuscular Volume 87 fL (80-97); Mean Platelet Volume 8.1 fL (7.4-10.4); Platelet Count 330 10^3/uL (150-450); Red Blood Count 5.32 10^6 /uL (3.70-4.87); Red Cell Distribution Width 14 % (10-15); White Blood Count 10.9 10^3/uL (3.5-10.8)
[2019-01-02 15:20] LABS: Albumin 3.8 g/dL (3.2-5.2); Albumin/Globulin Ratio 1.5 (1-3); BUN/Creatinine Ratio 14.1 (8-20); C Reactive Protein 5.43 mg/L (<8.01); Calcium 8.7 mg/dL (8.6-10.3); EGFR Non-African American 103.3 (>60); Globulin 2.6 g/dL (2-4); Potassium 3.5 mmol/L (3.5-5.0); Total Bilirubin 0.3 mg/dL (0.2-1.0); Total Protein 6.4 g/dL (6.4-8.9)
[2019-01-02 15:25] LABS: HCG Pregnancy 0.75 mIU/mL
[2019-01-02] MEDS ORDERED: oxyCODONE/Acetamin 5/325 MG* TAB PO ONE (15:52)
[2019-01-02 16:29] VITALS: BP 112/66
== END 2019-01-02 16:15 | disposition home or self-care (01) ==
LOC: ED 14:24
DX: M54.5 Low back pain (principal); E11.9 Type 2 diabetes mellitus without complications; I10 Essential (primary) hypertension; R51 Headache; F17.210 Nicotine dependence, cigarettes, uncomplicated; Z79.3 Long term (current) use of hormonal contraceptives
CPT/HCPCS: 36415; 74176; 80053; 81003; 83605; 83690; 84702; 85025; 86140; 87040; 99282; A9270-GY

== ENCOUNTER → 2019-01-20 14:24 | Day surgery (SDC) | payer OTHER ==
[~2019-01-20 14:24] MED LIST changes: +Bacitracin OINTMENT* 0.5% 0.5 oz TUBE ONE; +Buffered Lidocaine 1% SYRIN* 1 ML/SYRINGE INTRADERM ONE; +Bupivacaine 0.25% EPI 200,000* 30 ML SDV ONE; +Dexamethasone IV* 4 MG/ML 1 ML (4 MG) ONE; +Glycopyrrolate IV* 0.2 MG/ML 1 ML VIAL ONE; +KETAMINE HCL* 50 MG/ML 10 ML VIAL ONE; -Ketorolac INJ* 30 MG/ML 1 ML VIAL IV PUSH ONE; +Lactated Ringers 1000 ML Bag* 1,000 ML IV SCH; +Levalbuterol 0.63MG/3ML NEB* UNIT OF USE INH PRN; +Lidocaine 2% PF * 5 ML VIAL ONE; +Midazolam* 1 MG/ML 10 ML VIAL (10 MG) ONE; +Naloxone* 0.4 MG/ML 1 ML VIAL IV PRN; +Ondansetron INJ* 2 MG/ML VIAL IV PRN; +Ondansetron INJ* 2 MG/ML VIAL ONE; +Phenylephrine 40 MCG/ML SYRINGE ONE; +Propofol* 10 MG/ML 20 ML BTL ONE; +fentaNYL* 50 MCG/ML 2 ML VIAL (100 MCG VIAL) ONE
--- NOTE | 2019-01-20 19:11 | OP ---
Operative Report - Blank - Operative Report Date of Operation: 01/20/19 Note: Pre-OP Diagnoses: R axilla mass Post-op Diagnosis: same Procedure: Excisional biopsy of R axilla mass Surgeon: Melissa Asst: none Anethesia: GA with LMA EBL: minimal IVF: crystalloid Specimen: L axilla mass Drains: none
[2019-01-20] MEDS: fentaNYL* 50 MCG/ML 2 ML VIAL (100 MCG VIAL) IV PRN ×2 (19:19→19:43)
[2019-01-20 20:23] VITALS: BP 158/93
--- NOTE | 2019-01-20 22:52 | OP ---
CC: Donny Rajan NP; [facility] * DATE OF OPERATION: 01/20/19 - [facility] DATE OF : 78 SURGEON: Destin Torres MD. SALES AND MARKETING COORDINATOR: None. ANESTHESIOLOGIST: Dr. Zhou. ANESTHESIA: General anesthesia with LMA. PRE-OP DIAGNOSIS: Right axillary lesion. POST-OP DIAGNOSIS: Right axillary lesion. OPERATIVE PROCEDURE: Excision and biopsy of right axillary lesion. ESTIMATED BLOOD LOSS: Minimal. FLUIDS: Minimal crystalloid fluid given. SPECIMEN: Right axillary mass. DRAINS: None. DESCRIPTION OF PROCEDURE: The patient was identified in the preoperative area. I discussed the case with her and I marked the axilla, paying close attention to the lesion. This was significantly tender. The patient understood that we would take out the lesion and this would help with biopsy, but not sure if it would help with the patient's symptoms. She was taken to the operating room and placed on the operating table in a supine position. Sequential devices were placed on bilateral lower extremities and general anesthesia was induced. No antibiotics were given. Next, the right axilla was prepped and draped in a standard surgical fashion. Time-out was performed. Skin incision was made deep into the skin and subcutaneous fat down to overlying tissue over this lesion. This was also incised with scalpel and blunt and sharp dissections were carried out to free up what appeared to be a lipoma. This was friable and we did break it in half and passed off 1.5 x 1.5 cm portion off as part of the specimen. Additional dissection was carried out right under the pectoralis major muscle and this also appeared consistent with lipoma. It was passed off as additional specimen and the wound was irrigated. The fascia overlying the muscle appeared intact without lesion. Hemostasis was achieved and then we closed the wound with 3-0 nylon sutures in a mattress fashion. Sterile dressing was applied. The patient tolerated the procedure well and was transferred back in stable condition. [id number]/[facility] #: [id number] [facility]
== END | disposition home or self-care (01) ==
LOC: OR 14:24
PROVIDERS: ATTEND Surgery
DX: D17.1 Benign lipomatous neoplasm of skin and subcutaneous tissue of trunk (principal); N63.31 Unspecified lump in axillary tail of the right breast; Z72.0 Tobacco use; E11.9 Type 2 diabetes mellitus without complications; Z79.4 Long term (current) use of insulin
CPT/HCPCS: 81025; 88305; A9270-GY; J1100; J2250; J2405; J2704; J3010

== ENCOUNTER 2019-01-28 17:43 | Emergency (ER) | payer OTHER ==
--- OUTSIDE RECORDS SUMMARY | 2019-01-28 17:59 | XMS REPORT | Continuity of Care Document ---
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 [phone] Medicine Problems Active Problems Provider Date Type [...] Drug User Marijuana frequently Smoking Status Reviewed: 01/25/19 Heavy tobacco smoker Smokes 1/2-1.5 ppd; (more than 9 Started age 9; quit cigarettes/day) a few times Exercise Type/Frequency Exercises regularly Allergies, Adverse Reactions, Alerts Active Allergies Reaction Severity Comments Date Aspirin GI Upset 06/29/2012 Glipizide vision changes, dizziness 06/29/2012 Thorazine swelling 06/29/2012 Metformin GI upset Moderate 10/24/2016 Janumet GI upset Moderate 10/24/2016 Meloxicam insomnia, GI Upset 08/29/2017 Medications Active Medications SIG Qnty Indications Ordering Date Provider Rhinocort Allergy 2 sprays each nostril 8.430ml H69.90 Donny Rajan NP 09/2018 once daily 32mcg/Act Suspension Chantix Continuing 1 by mouth twice a 60tabs F17.210 Donny Rajan NP 2018 Month Cy day 1mg Tablets Ibuprofen take one tablet by 60tabs M54.5 Donny Rajan NP 12/24/2018 600mg mouth three times a Tablets day as needed with food Tizanidine HCL 1 three times a day 60caps M54.5 Donny Rajan NP 12/24/2018 as needed 4mg Capsules Fluconazole one by mouth august 3tabs B37.9 Donny Rajan NP 05/23/2017 150mg repeat in 3 days as Tablets needed Tramadol HCL 1-2 tablets every 8 42tabs M79.644 Donny Rajan NP 05/23/2017 50mg hours as needed for Tablets pain. [place] 07/04" use with basaglar and 100units Donny Rajan NP 2016 novolog subq everyday 31G X 5 mm Misc Ventolin HFA Take 2 Puffs 4 Times 18units R06.02 Donny Rajan NP 10/24/2016 A Day as Needed 108(90Base) mcg/Act Aerosol Admelog Solostar Inject 10-20 Units Unknown Beneath The Skin 100Unit/ML Three Times Daily Solution Before Meals. Pen-Inject Basaglar Kwikpen Inject 100 Units Unknown Subcutaneously Every 100Unit/ML Day Solution Pen-Inject Benadryl Allergy 1-2 tabs at bedtime Unknown prn 25mg Tablets Melatonin 1-2 by mouth every Unknown 5mg night as needed Capsules Onetouch Ultra test up to three 150units E11.9 Donny Rajan NP Blue times a day or as Strips directed Onetouch Delica test three times 200units Donny Rajan NP Lancets Fine 30G daily or as needed 30G Misc Onetouch Ultra 2 check blood sugar 3 1units Donny Rajan NP times daily and as w/Device Kit needed History Medications Chantix Starting one 0.5 mg tab QS F17.210 Donny Rajan NP 12/24/2018 - Month Cy every day for 3 01/07/2019 0.5mg X 11 days, one 0.5 mg & 1 mg X 42 Tablets tab twice a day for 4 days, one 1 mg tab twice a day every day after Mometasone Furoate 2 sprays each 51gm H69.90 Donny Rajan, MARKY 12/24/2018 - nostril once 12/25/2018 50mcg/Act Suspension daily Medications Administered in Office Medication SIG Qnty Indications Ordering Provider Date Depomedrol 40MG Isaiah Lazar MD 08/29/2017 Injection Celestone 3 mg and 3mg Isaiah Lazar MD 05/30/2017 Injection Immunizations Description No Information Available Vital Signs Date Vital Result Comment 01/25/2019 2:14pm Heart Rate 92 /min BP Systolic 160 mmHg BP Diastolic 90 mmHg Respiratory Rate 18 /min Body Temperature 98.5 F 01/21/2019 11:35am Body Temperature 97.3 F Results Test Date Facility Test Result H/L Range Note Laboratory test 01/20/2019 [facility] Point of Care 147 mg/dL High 70-[address] Glucose [place], [place] [id number] [phone] Laboratory test 01/20/2019 [facility] Surgical SEE RESULT [address] [place] [address] [phone] Laboratory test 01/20/2019 [facility] Point of Care 231 mg/dL High 70-[address] [place] [address] [phone] Urinalysis 01/02/2019 [facility] Urine Color Yellow Profile [address] [place] [address] [phone] Urine Appearance Cloudy Urine Specific Likely 1.030 Normal 1.010-1.030 Urine pH 6.0 Normal 5-9 Urine Urobilinogen Negative Negative Urine Ketones Negative Negative Urine Protein Negative Negative Urine Leukocytes Negative Negative Urine Blood Negative Negative Urine Nitrite Negative Negative Urine Bilirubin Negative Negative Urine Glucose 3+(>=500 mg/dL) Abnormal Negative Laboratory test 01/02/2019 [facility] Lactic Acid 1.1 mmol/L Normal 0.5-2.[address] [place] [address] [phone] CBC Auto Diff 01/02/2019 [facility] White Blood 10.9 High 3.5- 10.[address] Count 10^3/[place] [address] [phone] Red Blood Count 5.32 10^6/uL High 3.70-4.87 Hemoglobin 15.2 g/dL Normal 12.0-16.0 Hematocrit 46 % Normal 35-47 Mean Corpuscular Volume 87 fL Normal 80-97 Mean Corpuscular Hemoglobin 29 pg Normal 27-31 Mean Corpuscular HGB Conc 33 g/dL Normal 31-36 Red Cell Distribution Width 14 % Normal 10-15 Platelet Count 330 10^3/uL Normal 150-450 Mean Platelet Volume 8.1 fL Normal 7.4-10.4 Abs Neutrophils 7.2 10^3/uL Normal 1.5-7.7 Abs Lymphocytes 2.9 10^3/uL Normal 1.0-4.8 Abs Monocytes 0.7 10^3/uL Normal 0-0.8 Abs Eosinophils 0.1 10^3/uL Normal 0-0.6 Abs Basophils 0.1 10^3/uL Normal 0-0.2 Abs Nucleated RBC 0.0 10^3/uL Granulocyte % 65.9 % Lymphocyte % 26.6 % Monocyte % 6.3 % Eosinophil % 0.5 % Basophil % 0.7 % Nucleated Red Blood Cells % 0.0 Comp Metabolic 01/02/2019 [facility] Sodium 138 mmol/L Normal 135-[address] [place] [address] [phone] Potassium 3.5 mmol/L Normal 3.5-5.0 Chloride 104 mmol/L Normal 101-111 Co2 Carbon Dioxide 29 mmol/L Normal 22-32 Anion Gap 5 mmol/L Normal 2-11 Glucose 175 mg/dL High 70-100 Blood Urea Nitrogen 9 mg/dL Normal 6-24 Creatinine 0.64 mg/dL Normal 0.51-0.95 BUN/Creatinine Ratio 14.1 Normal 8-20 Calcium 8.7 mg/dL Normal 8.6-10.3 Total Protein 6.4 g/dL Normal 6.4-8.9 Albumin 3.8 g/dL Normal 3.2-5.2 Globulin 2.6 g/dL Normal 2-4 Albumin/Globulin Ratio 1.5 Normal 1-3 Total Bilirubin 0.30 mg/dL Normal 0.2-1.0 Alkaline Phosphatase 67 U/L Normal 34-104 Alt 23 U/L Normal 7-52 Ast 13 U/L Normal 13-39 Egfr Non- 103.3 >60 Egfr 125.0 >60 5 Laboratory test 01/02/2019 [facility] Lipase 25 U/L Normal 11.0-82.[address] [place] [address] [phone] C Reactive Protein 5.43 mg/L Normal <8.01 HCG 0.75 mIU/mL 6 Blood Culture SEE RESULT BELOW 7 Laboratory 01/02/2019 [facility] Blood Culture SEE RESULT 8 test finding [address] [place] [address] [phone] Laboratory 12/28/2018 [facility] Point of Care 172 mg/dL High 70-100 9 test finding [address] [place] [address] [phone] Influenza A & 12/28/2018 [facility] Influenza A NEGATIVE Negative 10 B Request [address] [place] [address] [phone] Influenza B Molecular NEGATIVE Negative CBC Auto 12/28/2018 [facility] White Blood 11.7 10^3/uL High 3.5-10.[address] [place] [address] [phone] Red Blood Count 5.35 10^6/uL High 3.70-4.87 Hemoglobin 15.7 g/dL Normal 12.0-16.0 Hematocrit 46 % Normal 35-47 Mean Corpuscular Volume 85 fL Normal 80-97 Mean Corpuscular Hemoglobin 29 pg Normal 27-31 Mean Corpuscular HGB Conc 34 g/dL Normal 31-36 Red Cell Distribution Width 14 % Normal 10-15 Platelet Count 330 10^3/uL Normal 150-450 Mean Platelet Volume 8.1 fL Normal 7.4-10.4 Abs Neutrophils 7.9 10^3/uL High 1.5-7.7 Abs Lymphocytes 2.8 10^3/uL Normal 1.0-4.8 Abs Monocytes 0.8 10^3/uL Normal 0-0.8 Abs Eosinophils 0.1 10^3/uL Normal 0-0.6 Abs Basophils 0.1 10^3/uL Normal 0-0.2 Abs Nucleated RBC 0.0 10^3/uL Granulocyte % 68.0 % Lymphocyte % 23.6 % Monocyte % 7.3 % Eosinophil % 0.6 % Basophil % 0.5 % Nucleated Red Blood Cells % 0.0 Venous Blood 12/28/2018 [facility] Venous Blood 7.41 Normal 7.32-7.[address] [place] [address] [phone] Venous Pco2 48 mmHg Normal 41-51 Venous Po2 < 38.0 mmHg Normal 35-45 Venous O2 Saturation 41.7 % Low 70-80 Venous Blood Base Excess 4.8 mmol/L High 0.0-4.0 11 Venous Bicarbonate Hco3 27.1 mmol/L Normal 24-28 Comp Metabolic 12/28/2018 [facility] Sodium 136 mmol/L Normal 135-[address] [place] [address] [phone] Potassium 4.1 mmol/L Normal 3.5-5.0 Chloride 103 mmol/L Normal 101-111 Co2 Carbon Dioxide 30 mmol/L Normal 22-32 Anion Gap 3 mmol/L Normal 2-11 Glucose 272 mg/dL High 70-100 Blood Urea Nitrogen 13 mg/dL Normal 6-24 Creatinine 0.67 mg/dL Normal 0.51-0.95 BUN/Creatinine Ratio 19.4 Normal 8-20 Calcium 9.3 mg/dL Normal 8.6-10.3 Total Protein 6.7 g/dL Normal 6.4-8.9 Albumin 4.0 g/dL Normal 3.2-5.2 Globulin 2.7 g/dL Normal 2-4 Albumin/Globulin Ratio 1.5 Normal 1-3 Total Bilirubin 0.30 mg/dL Normal 0.2-1.0 Alkaline Phosphatase 81 U/L Normal 34-104 Alt 24 U/L Normal 7-52 Ast 15 U/L Normal 13-39 Egfr Non- 98.0 >60 Egfr 118.6 >60 12 Laboratory test 12/28/2018 [facility] C Reactive 7.81 mg/L Normal <8.[address] [place] [address] [phone] Lactic Acid 1.2 mmol/L Normal 0.5-2.0 13 HCG < 0.60 mIU/mL 14 Urinalysis Profile 12/28/2018 [facility] Urine Color Yellow [address] [place] [address] [phone] Urine Appearance Cloudy Urine Specific Likely 1.024 Normal 1.010-1.030 Urine pH 6.0 Normal 5-9 Urine Urobilinogen Negative Negative Urine Ketones Negative Negative Urine Protein 1+(30 mg/dL) Abnormal Negative Urine Leukocytes Trace Abnormal Negative Urine Blood Negative Negative Urine Nitrite Negative Negative Urine Bilirubin Negative Negative Urine Glucose 2+(150 mg/dL) Abnormal Negative Urine White Blood Cell 1+(6-10/hpf) Abnormal Absent Urine Red Blood Cell Trace(0-2/hpf) Absent Urine Bacteria 3+ Abnormal Absent Urine Squamous Epithelial Cell Present Abnormal Absent Urine Culture And 12/28/2018 [facility] Urine SEE RESULT [address] [place] [address] [phone] Laboratory test 12/28/2018 [facility] Point of 341 mg/dL High 70-10 [address] Care Glucose 0 [place] [address] [phone] 1 Oil Pit Attendant: [id number] 2 SEE RESULT BELOW Name: YUE ESPINO : [address]: Destin Torres MD Acct: [id number] Unit: [id number] AGE: 38 Location: OR Re01/20/19 SEX: F Status: REG [facility] SPEC: [id number] INES: 01/20/19 [facility] DR: Destin Torres MD REQ: [id number] RECD: 01/20/19 STATUS: SOUT _ ORDERED: LEVEL 4 FINAL DIAGNOSIS Right axilla, excision: -- Mature fibroadipose and degenerative fibroconnective tissue, compatible with lipoma. PRE-OPERATIVE DIAGNOSIS Right axilla mass GROSS DESCRIPTION The specimen is received in formalin labeled, Right Axilla Mass, and consists of a 4.5 by up to 2.5 x 1.2 cm aggregate of yellow-pink fibro-fatty soft tissue fragments with focal fibromembranous adhesions. The specimen is inked, serially sectioned and submitted entirely in three cassettes. Signed by and Reported on: Cehyenne Morales MD 01/22/19 1427 END OF REPORT DEPARTMENT OF PATHOLOGY, [address] [place] [address] Jose Luis Kulkarni M.D. Director [facility] # [id number] 3 Oil Pit Attendant: [id number] 4 [facility] Severe Sepsis and Septic Shock Management Bundle Measure requires all lactic acids initially measuring >2.0 mmol/L be repeated. 5 Because ethnic data is not always readily [...] 15-29 5 Kidney failure <15 (or dialysis) 6 <5.0 Negative 5.0 - 25.0 Indeterminate (Repeat testing recommended after 72 hours) >25.0 Positive Perimenopausal women can display HCG levels of up to 20 mIU/mL 7 SEE RESULT BELOW Name: YUE ESPINO : [address]: Reginald Delaney MD Acct: [id number] Unit: [id number] AGE: 38 Location: ED Re01/02/19 SEX: F Status: DEP ER SPEC: [id number] INES: 01/02/[address]: Koby WHITT REQ: [id number] RECD: 01/02/19 STATUS: JOY VERDUZCO DR: [facility] Ethel Quick MD _ SOURCE: BLOOD,VENO SPDESC: ORDERED: Blood Cult Procedure Result Reported Site Aerobic Culture Bottle Final 01/07/19- 1458 ML No Growth Day 5 Anaerobic Culture Bottle Final 01/07/19- 1458 ML No Growth Day 5 * ML - Main Lab . END OF REPORT DEPARTMENT OF PATHOLOGY, [address] [place] [address] Jose Luis Kulkarni M.D. Director [facility] # [id number] 8 SEE RESULT BELOW Name: YUE ESPINO : [address]: Reginald Delaney MD Acct: [id number] Unit: [id number] AGE: 38 Location: ED Re01/02/19 SEX: F Status: DEP ER SPEC: [id number] INES: 01/02/19 [facility] DR: Koby WHITT REQ: [id number] RECD: 01/02/19 STATUS: JOY VERDUZCO DR: [facility] Ethel Quick MD _ SOURCE: BLOOD,VENO SPDESC: ORDERED: Blood Cult Procedure Result Reported Site Aerobic Culture Bottle Final 01/07/19- 1500 ML No Growth Day 5 Anaerobic Culture Bottle Final 01/07/19- 1458 ML No Growth Day 5 * ML - Main Lab . END OF REPORT DEPARTMENT OF PATHOLOGY, [address] [place] [address] Jose Luis Kulkarni M.D. Director [facility] # [id number] 9 Oil Pit Attendant: [id number] Oil Pit Attendant: [id number] 11 Reference ranges based on room air. 12 Because ethnic data is not always [...] 5 Kidney failure <15 (or dialysis) 13 [facility] Severe Sepsis and Septic Shock Management Bundle Measure requires all lactic acids initially measuring >2.0 mmol/L be repeated. 14 <5.0 Negative 5.0 - 25.0 Indeterminate (Repeat testing recommended after 72 hours) >25.0 Positive Perimenopausal women can display HCG levels of up to 20 mIU/mL 15 SEE RESULT BELOW Name: YUE ESPINO : [address]: Pastor Archer MD Acct: [id number] Unit: [id number] AGE: 38 Location: ED Re12/28/18 SEX: F Status: DEP ER SPEC: [id number] INES: 12/28/[address]: Reuben Lozano MD REQ: [id number] RECD: 12/28/18 STATUS: JOY VERDUZCO DR: [facility] Ethel Quick MD _ SOURCE: URINE SPDESC: ORDERED: Urine Culture Procedure Result Reported Site Urine Culture Final 12/30/18- 1130 ML No growth of clinically significant organisms * ML - Main Lab . END OF REPORT DEPARTMENT OF PATHOLOGY, [address] [place] [address] Jose Luis Kulkarni M.D. Director [facility] # [id number] 16 Oil Pit Attendant: [id number] Procedures Date Code Description Status 03/27/2017 [id number] Diabetic Retinal Eye Exam Completed Medical Devices Description No Information Available Encounters Type Date Location Provider Dx Diagnosis Office Visit 01/11/2019 Surgical Destin Torres, E11.65 Type 2 diabetes 9:00a [facility] MARIO BRUNSON mellitus with hyperglycemia N63.31 Unspecified lump in axillary tail of the right breast Office Visit 12/24/2018 8:40a [facility] Internal Donny Rajan NP R22.2 Localized Medicine - Ccmob swelling, mass and lump, trunk F17.210 Nicotine dependence, cigarettes, uncomplicated M54.5 Low back pain Assessments Date Code Description Provider 01/11/2019 E11.65 Type 2 diabetes mellitus with Destin Torres MD, FACS hyperglycemia 01/11/2019 N63.31 Unspecified lump in axillary tail of the Destin Licha Torres MD, FACS right breast 12/24/2018 R22.2 Localized swelling, mass and lump, trunk Donny Rajan NP 12/24/2018 F17.210 Nicotine dependence, cigarettes, Donny Rajan NP uncomplicated 12/24/2018 M54.5 Low back pain Donny Rajan NP Plan of Treatment Future Appointment(s):01/26/2019 10:45 am - Destin Torres MD, FACS at [facility]01/29/2019 4:00 pm - Destin Torres MD, [facility] at [facility]01/11/2019 - Destin Torres MD, FACSE11.65 Type 2 diabetes mellitus with [id number] Unspecified lump in axillary tail of the right breast Functional Status Description No Information Available Mental Status Description No Information Available Referrals Refer to Reason for Referral Status Appt Date Destin Torres MD Sent 01/11/2019 [address] [facility] [place] [id number] [phone]
--- OUTSIDE RECORDS SUMMARY | 2019-01-28 17:59 | XMS REPORT | Continuity of Care Document ---
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 Pen [place] 07/04" use with basaglar and 100units Donny [...] Mometasone Furoate 2 sprays each 51gm H69.90 Donnykacey Rajan, [employer]TRID[employer] F[employer]ER 12/24/2018 - nostril once 12/25/2018 50mcg/Act Suspension daily Medications Administered in Office Medication SIG Qnty Indications Ordering Provider Date Depomedrol 40MG Isaiah Lazar MD 08/29/2017 Injection Celestone 3 mg and 3mg Isaiah Lazar MD 05/30/2017 Injection Immunizations Description No Information Available Vital Signs Date Vital Result Comment 01/26/2019 10:56am Heart Rate 88 /min BP Systolic 146 mmHg BP Diastolic 90 mmHg Respiratory Rate 18 /min Body Temperature 97.6 F 01/25/2019 2:14pm Heart Rate 92 /min BP Systolic 160 mmHg BP Diastolic 90 mmHg Respiratory Rate 18 /min Body Temperature 98.5 F Results Test Date Facility Test Result H/L Range Note Laboratory test 01/20/2019 [facility] Point of Care 147 mg/dL High 70-[address] [place] [address] [phone] Laboratory test 01/20/2019 [facility] Surgical SEE RESULT [address] [place] [address] [phone] Laboratory test 01/20/2019 [facility] Point of Care 231 mg/dL High 70-[address] [place] [address] [phone] Urinalysis 01/02/2019 [facility] Urine Color Yellow [place] [address] [place] [address] [phone] Urine Appearance Cloudy Urine Specific [place] 1.030 Normal 1.010-1.030 Urine pH 6.0 Normal 5-9 Urine Urobilinogen Negative Negative Urine Ketones Negative Negative Urine Protein Negative Negative Urine Leukocytes Negative Negative Urine Blood Negative Negative Urine Nitrite Negative Negative Urine Bilirubin Negative Negative Urine Glucose 3+(>=500 mg/dL) Abnormal Negative Laboratory test 01/02/2019 [facility] Lactic Acid 1.1 mmol/L Normal 0.5-2.0 [address] [place] [address] [phone] CBC Auto Diff 01/02/2019 [facility] White Blood 10.9 High 3.5- 10.[address] Count 10^3/[place] [address] [phone] Red Blood Count 5.32 10^6/uL High 3.70-4.87 [...] Blood Cells % 0.0 Comp Metabolic 01/02/2019 [facility] Sodium 138 mmol/L Normal 135-[address] [place], [place] [id number] [phone] Potassium 3.5 mmol/L Normal 3.5-5.0 Chloride 104 [...] Egfr 125.0 >60 5 Laboratory test 01/02/2019 [facility] Lipase 25 U/L Normal 11.0-82.[address] [place] [address] [phone] C Reactive Protein 5.43 mg/L Normal <8.01 HCG 0.75 mIU/mL 6 Blood Culture SEE RESULT BELOW 7 Laboratory 01/02/2019 [facility] Blood Culture SEE RESULT 8 test finding [address] [place] [address] [phone] Laboratory 12/28/2018 [facility] Point of Care 172 mg/dL High 70-100 9 test finding [address] [place] [address] [phone] Influenza A & 12/28/2018 [facility] Influenza A NEGATIVE Negative 10 B Request [address] [place] [address] [phone] Influenza B Molecular NEGATIVE Negative CBC Auto 12/28/2018 [facility] White Blood 11.7 10^3/uL High 3.5-10.[address] [place] [address] [phone] Red Blood Count 5.35 10^6/uL High 3.70-4.87 [...] Blood Cells % 0.0 Venous Blood 12/28/2018 [facility] Venous Blood 7.41 Normal 7.32-7.[address] [place] [address] [phone] Venous Pco2 48 mmHg Normal 41-51 Venous Po2 < 38.0 mmHg Normal 35-45 Venous O2 Saturation 41.7 % Low 70-80 Venous Blood Base Excess 4.8 mmol/L High 0.0-4.0 11 Venous Bicarbonate Hco3 27.1 mmol/L Normal 24-28 Comp Metabolic 12/28/2018 [facility] Sodium 136 mmol/L Normal 135-[address] [place] [address] [phone] Potassium 4.1 mmol/L Normal 3.5-5.0 Chloride 103 [...] Egfr 118.6 >60 12 Laboratory test 12/28/2018 [facility] C Reactive 7.81 mg/L Normal <8.[address] [place] [address] [phone] Lactic Acid 1.2 mmol/L Normal 0.5-2.0 13 HCG < 0.60 mIU/mL 14 Urinalysis Profile 12/28/2018 [facility] Urine Color Yellow [address] [place] [address] [phone] Urine Appearance Cloudy Urine Specific [place] 1.024 Normal 1.010-1.030 Urine pH 6.0 Normal [...] Present Abnormal Absent Urine Culture And 12/28/2018 [facility] Urine SEE RESULT [address] [place] [address] [phone] Laboratory test 12/28/2018 [facility] Point of 341 mg/dL High 70-10 [address] Care Glucose 0 [place] [address] [phone] 1 Furniture Sales Associate: [id number] 2 SEE RESULT BELOW Name: JAYROYUE Miguelito : [address]: Destin Torres MD Acct: [id number] Unit: [id number] AGE: 38 Location: OR Re01/20/19 SEX: F Status: REG [facility] SPEC: [id number] INES: 01/20/19 [facility] DR: Destin Torres MD REQ: [id number] RECD: 01/20/19 STATUS: SOUT _ ORDERED: LEVEL [...] three cassettes. Signed by and Reported on: Cheyenne Morales MD 01/22/19 1427 END OF REPORT DEPARTMENT OF PATHOLOGY, [address] [place] [address] Jose Luis Kulkarni M.D. Director [facility] # [id number] 3 Furniture Sales Associate: [id number] [facility] Severe Sepsis and Septic Shock Management Bundle [...] [address]: Reginald Delaney MD Acct: [id number] Unit: [id number] AGE: 38 Location: ED Re01/02/19 SEX: F Status: DEP ER SPEC: [id number] NIES: 01/02/19 [facility] DR: Koby WHITT REQ: [id number] RECD: 01/02/19 STATUS: JOY VERDUZCO DR: [facility] Ethel Quick MD _ SOURCE: BLOOD,VENO SPDESC: ORDERED: Blood Cult Procedure Result Reported Site Aerobic Culture Bottle Final 01/07/19- 1458 ML No Growth Day 5 Anaerobic Culture Bottle Final 01/07/191457 ML No Growth Day 5 * ML - Main Lab . END OF REPORT DEPARTMENT OF PATHOLOGY, [address] [place] [address] Jose Luis Kulkarni M.D. Director [facility] # [id number] 8 SEE RESULT BELOW Name: YUE ESPINO : [address]: Reginald Delaney MD Acct: [id number] Unit: [id number] AGE: 38 Location: ED Re01/02/19 SEX: F Status: DEP ER SPEC: [id number] INES: 01/02/19 [facility] DR: Koby WHITT REQ: [id number] RECD: 01/02/19 STATUS: JOY VERDUZCO DR: [facility] Ethel Quick MD _ SOURCE: BLOOD,VENO SPDESC: ORDERED: Blood Cult Procedure Result Reported Site Aerobic Culture Bottle Final 01/07/19- 1500 ML No Growth Day 5 Anaerobic Culture Bottle Final 01/07/19- 1458 ML No Growth Day 5 * ML - Main Lab . END OF REPORT DEPARTMENT OF PATHOLOGY, [address] [place] [address] Jose Luis Kulkarni M.D. Director [facility] # [id number] 9 Furniture Sales Associate: [id number] Furniture Sales Associate: [id number] Reference ranges based on room air. [...] 5 Kidney failure <15 (or dialysis) 13 [facility] Severe Sepsis and Septic Shock Management Bundle Measure requires all lactic acids initially measuring >2.0 mmol/L be repeated. 14 <5.0 Negative 5.0 - 25.0 Indeterminate (Repeat testing recommended after 72 hours) >25.0 Positive Perimenopausal women can display HCG levels of up to 20 mIU/mL 15 SEE RESULT BELOW Name: YUE ESPINO : [address]: Pastro Archer MD Acct: [id number] Unit: [id number] AGE: 38 Location: ED Re12/28/18 SEX: F Status: DEP ER SPEC: [id number] INES: 12/28/18 [facility] DR: Reuben Lozano MD REQ: [id number] RECD: 12/28/18 STATUS: JOY VERDUZCO DR: [facility] Ethel Quick MD _ SOURCE: URINE SPDESC: ORDERED: Urine Culture Procedure Result Reported Site Urine Culture Final 12/30/18- 1130 ML No growth of clinically significant organisms * ML - Main Lab . END OF REPORT DEPARTMENT OF PATHOLOGY, [address] [place] [address] Jose Luis Kulkarni M.D. Director [facility] # [id number] Furniture Sales Associate: [id number] Procedures Date Code Description Status 03/27/2017 [id number] Diabetic Retinal Eye Exam Completed Medical Devices Description No Information Available Encounters Type Date Location Provider Dx Diagnosis Office Visit 01/11/2019 Surgical Destin Torres, E11.65 Type 2 diabetes 9:[facility]a [facility], [facility] mellitus with hyperglycemia N63.31 Unspecified lump in axillary tail of the right breast Office Visit 12/24/2018 8:40a [employer] Operator Internal Donny Rajan NP R22.2 Localized Medicine - Ccmob swelling, mass and lump, trunk F17.210 Nicotine dependence, cigarettes, uncomplicated M54.5 Low back pain Assessments Date Code Description Provider 01/26/2019 N63.31 Unspecified lump in axillary tail of the Destin Torres MD, FACS right breast 01/26/2019 M25.511 Pain in right shoulder Destin Torres MD, FACS 01/25/2019 R22.2 Localized swelling, mass and lump, trunk Tisha Spaulding MD 01/11/2019 E11.65 Type 2 diabetes mellitus with Destin Torres MD, FACS hyperglycemia 01/11/2019 N63.31 Unspecified lump in axillary tail of the Destin Torres MD, FACS right breast 12/24/2018 R22.2 Localized swelling, mass and lump, trunk Donny Rajan NP 12/24/2018 F17.210 Nicotine dependence, cigarettes, Donny Rajan NP uncomplicated 12/24/2018 M54.5 Low back pain Donny Rajan NP Plan of Treatment Future Appointment(s):02/05/2019 4:00 pm - Destin Torres MD, FACS at [facility]01/26/2019 - Destin Torres MD, FACSN63.31 Unspecified lump in axillary tail of the right breastReferral:Catherine Patricio MD , Surgery,OrthopedicFollow up:1 week change Fridays appointment to next week pleaseInstructions:Antibiotic ointment daily to the incision site.M25.511 Pain in right shoulderReferral:No Doctor Selected Functional Status Description No Information Available Mental Status Description No Information Available Referrals Refer to Reason for Referral Status Appt Date Catherine Patricio MD Persistent shoulder pain. Patient is one week Created status post removal of a lipoma at for pain and continues to have pain. [address] [place] [address] [place] [address] [phone] Created Destin Torres MD Sent 01/11/2019 [address] [address] [facility] [address] [phone]
[2019-01-28] MEDS ORDERED: oxyCODONE/Acetamin 5/325 MG* TAB PO ONE (19:57)
[2019-01-28] MEDS ORDERED: Clindamycin CAP* 150 MG PO ONE (20:12)
--- NOTE | 2019-01-28 20:20 | ED ---
Skin Complaint - HPI Summary HPI Summary: This is a 38 year old female who presents with a chief complaint of pain, swelling, discharge and erythema of an incision from a post-lipoma removal last Friday. these symptoms began on Friday, and she states that she was seen in the surgeons office on Friday and Friday, and no treatment was initiated. She states the pain radiates throughout her entire right shoulder, and down her ribs. She denies fever. has history of DM. no history of MRSA. - History of Current Complaint Chief Complaint: EDRashSkinAbscess Time Seen by Provider: 01/28/19 19:24 Stated Complaint: ARM LAC/PAIN Hx Last Menstrual Period: IRREG , NOT SURE LAST PERIOD, Patient is on depo Pain Intensity: 4 - Allergy/Home Medications Allergies/Adverse Reactions: Allergies Allergy/AdvReac Type Severity Reaction Status Date / Time chlorpromazine Allergy Severe Swelling Verified 01/20/19 15:39 [From Thorazine] glipizide Allergy Blurred Verified 01/20/19 15:39 Vision meloxicam Allergy See Comment Verified 01/20/19 15:39 aspirin AdvReac Severe Vomiting Verified 01/20/19 15:39 metformin AdvReac GI Upset Verified 01/20/19 15:39 sitagliptin [From Janumet] AdvReac GI Upset Verified 01/20/19 15:39 PMH/Surg Hx/FS Hx/Imm Hx Endocrine/Hematology History: Reports: Hx Diabetes - Type 2 Denies: Hx Anticoagulant Therapy Cardiovascular History: Reports: Hx Hypertension, Other Cardiovascular Problems/ Disorders - born with hole in heart, HX of mumur as child. Denies: Hx Pacemaker/ICD Respiratory History: Reports: Hx Asthma Denies: Hx Chronic Obstructive Pulmonary Disease (COPD) GI History: Reports: Hx Irritable Bowel, Hx Ulcer - hx of stomach History: Reports: Hx Kidney Infection - none recent Denies: Hx Dialysis, Hx Renal Disease Musculoskeletal History: Reports: Hx Arthritis, Other Musculoskeletal History - chronic back pain Denies: Hx Rheumatoid Arthritis, Hx Osteoporosis Sensory History: Reports: Hx Contacts or Glasses - glasses Denies: Hx Hearing Aid Opthamlomology History: Reports: Hx Contacts or Glasses - glasses Neurological History: Reports: Hx Headaches, Hx Migraine, Hx Nerve Disease - DM neuropathy Denies: Other Neuro Impairments/Disorders Psychiatric History: Reports: Hx Anxiety, Hx Depression, Hx Panic Disorder - Cancer History Hx Chemotherapy: No - Surgical History Surgery Procedure, Year, and Place: FATTY LIPOMA OF RIGHT AXILLIA NOV 2013. lipoma removed from back Hx Anesthesia Reactions: No - Immunization History Date of Tetanus Vaccine: unk Date of Influenza Vaccine: none Infectious Disease History: No Infectious Disease History: Denies: Traveled Outside the [place] in Last 30 Days - Family History Known Family History: Positive: Diabetes - father - Social History Alcohol Use: None Hx Substance Use: Yes Substance Use Type: Reports: Marijuana Substance Use Comment - Amount & Last Used: daily Hx Tobacco Use: Yes Smoking Status (MU): Light Every Day Tobacco Smoker Type: Cigarettes Amount Used/How Often: 1/2 ppd on and off 25 years, taking chantix to quit Review of Systems Positive: Fever. Negative: Chills Negative: Chest Pain Negative: Shortness Of Breath Positive: Rash All Other Systems Reviewed And Are Negative: Yes Physical Exam Triage Information Reviewed: Yes Vital Signs On Initial Exam: Initial Vitals Temp Pulse Resp BP Pulse Ox 98.1 F 109 20 104/73 96 01/28/19 17:50 01/28/19 17:50 01/28/19 17:50 01/28/19 17:50 01/28/19 17:50 Vital Signs Reviewed: Yes Appearance: Positive: Well-Appearing Skin: Positive: Other - 4cm linear incision with some drainage and surrounding erythema and induration, no flutuance Head/Face: Positive: Normal Head/Face Inspection Eyes: Positive: Normal, Conjunctiva Clear ENT: Positive: Pharynx normal Respiratory/Lung Sounds: Positive: Clear to Auscultation, Breath Sounds Present Cardiovascular: Positive: Normal, RRR Musculoskeletal: Positive: Normal Neurological: Positive: Normal Psychiatric: Positive: Normal Procedures - Sedation Patient Received Moderate/Deep Sedation with Procedure: No Diagnostics - Vital Signs Vital Signs Temp Pulse Resp BP Pulse Ox 01/28/19 20:04 16 01/28/19 17:50 98.1 F 109 20 104/73 96 - Laboratory Lab Statement: Any lab studies that have been ordered have been reviewed, and results considered in the medical decision making process. Course/Dx - Course Course Of Treatment: 38-year-old female presents with potential infection of incision site. She had a lipoma removed from her right armpit a week ago. States she noticed redness there for past couple days. states area has been draining. No fevers. Is diabetic. On exam has erythema along incision of right axilla. Area is indurated. Some drainage present which cultured. Discuss with Dr. Mane who states to remove 1 suture from the area. left some stictches so that area does not completely dehisced. Spoke with Dr. Spaulding about getting a follow-up tomorrow. Told patient to call office tomorrow. Patient understands agrees with plan. - Differential Diagnoses - Skin Complaint Differential Diagnoses: Abscess, Cellulitis, Contact Dermatitis - Diagnoses Provider Diagnoses: Cellulitis Discharge ED - Sign-Out/Discharge Documenting (check all that apply): Patient Departure - Discharge Plan Condition: Good Disposition: HOME Prescriptions: Clindamycin Cap(NF) [Clindamycin Cap 300 mg Cap(NF)] 300 mg PO TID #29 cap oxyCODONE/Acetamin 5/325 MG* [Percocet 5/325 TAB*] 1 tab PO Q6H PRN #4 tab MDD 4 PRN Reason: Pain - Severe Patient Education Materials: Cellulitis (ED) Referrals: Donny Rajan NP [Primary Care Provider] - Destin Torres MD [Medical Doctor] - Additional Instructions: take clindamycin three times a day for 10 days call surgery office tomorrow to call for appointment apply warm compresses Return to ED if develop any new or worsening symptoms - Billing Disposition and Condition Condition: GOOD Disposition: Home
[2019-01-28 21:05] VITALS: BP 147/92
--- NOTE | 2019-01-29 03:46 | PN ---
Progress Note - Progress Note Date of Service: 01/28/19 Note: Asked by JOSE EDUARDO Hall to evaluate wound with her. Pt is S/P right axilla lipoma excision 6 days ago, and c/o increasing pain, redness and drainage from the incision 4 days. States she was at surgery office 4 days ago and 3 days ago and no new RX initiated. Pt denies fever to me, but has felt feverish. No hx MRSA.Pt 's sister with her. Pt states she has pictures of the wound over the past few days. Exam: Pt alert, in extreme pain, afebrile HEENT, nl appearance, atraumatic Neck Supple Cor S1 S2 Lungs No resp distress Extrem Full ROM R arm; distal pulses and sensation intact; Right axilla with 4cm incision with induration. 4 sutures visualized and intact. Wound with redness at suture line. Appearance could be early keloid formation. No lance drainage when palpated, although Isabel WHITT states she did express some exudate during her exam and sent it for culture. No fluctuance. Neuro: Alert, Moves all extremities well, Sensation grossly intact to light touch, axillary nerve right shoulder intact to light touch, Normal gait, + facial symmetry, speech clear, No focal deficit Assessment: Wound infection. Recommend remove one suture to allow any drainage of exudate. Start antibiotics, Clindamycin. Discuss with Dr. Spaulding, surgeon studio operation engineer. Definite f/u in am. Pt seen with JOSE EDUARDO Hall in face to face encounter with pt. Maribell Lynn MD 01/28/19
== END 2019-01-28 21:04 | disposition home or self-care (01) ==
LOC: ED 17:43
DX: L03.90 Cellulitis, unspecified (principal); I10 Essential (primary) hypertension; F17.210 Nicotine dependence, cigarettes, uncomplicated; E11.9 Type 2 diabetes mellitus without complications
CPT/HCPCS: 87070; 87077; 87186; 87205; 99282; A9270-GY

== ENCOUNTER 2019-03-24 20:09 | Emergency (ER) | payer OTHER ==
[2019-03-24 20:16] VITALS: BP 109/65
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
[2019-03-24] MEDS ORDERED: oxyCODONE TAB* 5 MG TAB PO ONE (21:04)
[2019-03-24] MEDS ORDERED: Sulfamethox/Trimethoprim DS 800/160* TAB PO ONE (22:18)
--- NOTE | 2019-03-24 22:21 | ED ---
Skin Complaint - HPI Summary HPI Summary: Patient complains of right groin pain swelling, erythema and purulent discharge 6 days with associated nausea. Patient states she has clindamycin at home and has been taking 2 tabs per day 5 days with no improvement in symptoms. Patient denies fever, cough, sore throat, CP, SOB, N/V/V abdominal pain, change in urine, change in BM. Medical history is DM. - History of Current Complaint Chief Complaint: EDExtremityLower Time Seen by Provider: 03/24/19 20:37 Stated Complaint: GROIN ABCESS PER PT Hx Obtained From: Patient Hx Last Menstrual Period: IRREG , NOT SURE LAST PERIOD, Patient is on depo Onset/Duration: Started Days Ago Skin Exposure Onset/Duration: Days Ago Timing: Constant Onset Severity: Severe Current Severity: Severe Pain Intensity: 10 Pain Scale Used: 0-10 Numeric Skin Location: Discrete Aggravating Symptom(s): Nothing Alleviating Symptom(s): Nothing Associated Signs & Symptoms: Negative - Allergy/Home Medications Allergies/Adverse Reactions: Allergies Allergy/AdvReac Type Severity Reaction Status Date / Time chlorpromazine Allergy Severe Swelling Verified 01/20/19 15:39 [From Thorazine] glipizide Allergy Blurred Verified 01/20/19 15:39 Vision meloxicam Allergy See Comment Verified 01/20/19 15:39 aspirin AdvReac Severe Vomiting Verified 01/20/19 15:39 metformin AdvReac GI Upset Verified 01/20/19 15:39 sitagliptin [From Janumet] AdvReac GI Upset Verified 01/20/19 15:39 PMH/Surg Hx/FS Hx/Imm Hx Endocrine/Hematology History: Reports: Hx Diabetes - Type 2 Denies: Hx Anticoagulant Therapy Cardiovascular History: Reports: Hx Hypertension, Other Cardiovascular Problems/ Disorders - born with hole in heart, HX of mumur as child. Denies: Hx Pacemaker/ICD Respiratory History: Reports: Hx Asthma Denies: Hx Chronic Obstructive Pulmonary Disease (COPD) GI History: Reports: Hx Irritable Bowel, Hx Ulcer - hx of stomach History: Reports: Hx Kidney Infection - none recent Denies: Hx Dialysis, Hx Renal Disease Musculoskeletal History: Reports: Hx Arthritis, Other Musculoskeletal History - chronic back pain Denies: Hx Rheumatoid Arthritis, Hx Osteoporosis Sensory History: Reports: Hx Contacts or Glasses - glasses Denies: Hx Hearing Aid Opthamlomology History: Reports: Hx Contacts or Glasses - glasses Neurological History: Reports: Hx Headaches, Hx Migraine, Hx Nerve Disease - DM neuropathy Denies: Other Neuro Impairments/Disorders Psychiatric History: Reports: Hx Anxiety, Hx Depression, Hx Panic Disorder - Cancer History Hx Chemotherapy: No - Surgical History Surgery Procedure, Year, and Place: FATTY LIPOMA OF RIGHT AXILLIA NOV 2013. lipoma removed from back Hx Anesthesia Reactions: No - Immunization History Date of Tetanus Vaccine: unk Date of Influenza Vaccine: none Infectious Disease History: No Infectious Disease History: Denies: Traveled Outside the [place] in Last 30 Days - Family History Known Family History: Positive: Diabetes - father - Social History Alcohol Use: None Hx Substance Use: Yes Substance Use Type: Reports: Marijuana Substance Use Comment - Amount & Last Used: daily Hx Tobacco Use: Yes Smoking Status (MU): Light Every Day Tobacco Smoker Type: Cigarettes Amount Used/How Often: 1/2 ppd on and off 25 years, taking chantix to quit Review of Systems Constitutional: Negative Eyes: Negative ENT: Negative Cardiovascular: Negative Respiratory: Negative Gastrointestinal: Negative Genitourinary: Negative Musculoskeletal: Negative Skin: Other Neurological: Negative Psychological: Normal All Other Systems Reviewed And Are Negative: Yes Physical Exam - Summary Physical Exam Summary: Erythema and positive induration to lower right vaginal labia and tissue inferiorly. No perirectal involvement. Mild purulent drainage. 2 incisions made with insights of greatest induration with minimal purulent discharge. Triage Information Reviewed: Yes Vital Signs On Initial Exam: Initial Vitals Temp Pulse Resp BP Pulse Ox 98.0 F 115 18 109/65 95 03/24/19 20:13 03/24/19 20:13 03/24/19 20:13 03/24/19 20:13 03/24/19 20:13 Vital Signs Reviewed: Yes Appearance: Positive: Well-Appearing Skin: Positive: Warm Head/Face: Positive: Normal Head/Face Inspection Eyes: Positive: Normal Neck: Positive: Supple Respiratory/Lung Sounds: Positive: Clear to Auscultation Cardiovascular: Positive: Normal Abdomen Description: Positive: Nontender Musculoskeletal: Positive: Normal Neurological: Positive: Normal Psychiatric: Positive: Normal AVPU Assessment: Alert - [place] Coma Scale Best Eye Response: 4 - Spontaneous Best Motor Response: 6 - Obeys Commands Best Verbal Response: 5 - Oriented Coma Scale Total: 15 Procedures - Sedation Patient Received Moderate/Deep Sedation with Procedure: No Diagnostics - Vital Signs Vital Signs Temp Pulse Resp BP Pulse Ox 03/24/19 20:13 98.0 F 115 18 109/65 95 - Laboratory Lab Statement: Any lab studies that have been ordered have been reviewed, and results considered in the medical decision making process. Course/Dx - Course Course Of Treatment: Patient complains of right groin pain swelling, erythema and purulent discharge 6 days with associated nausea. Patient states she has clindamycin at home and has been taking 2 tabs per day 5 days with no improvement in symptoms. Patient denies fever, cough, sore throat, CP, SOB, N/V /V abdominal pain, change in urine, change in BM. Medical history is DM. Vital signs within normal limits. I&D performed. Rx for Bactrim - Diagnoses Provider Diagnoses: Abscess Discharge ED - Sign-Out/Discharge Documenting (check all that apply): Patient Departure - Discharge Plan Condition: Stable Disposition: HOME Prescriptions: Oxycodone HCl 5 mg PO TID 2 Days #6 tablet MDD 3 tabs Sulfamethox/Trimethoprim DS* [Bactrim DS 800/160 TAB*] 1 tab PO BID 10 Days #20 tab Patient Education Materials: Abscess (ED) Forms: *Work Release Referrals: Donny Rajan NP [Primary Care Provider] - Additional Instructions: Take Bactrim as directed. Use warm compresses on abscess to help drain. Keep area clean and dry when not washing. Return to the ED for any new or worsening symptoms. - Billing Disposition and Condition Condition: STABLE Disposition: Home - Attestation Statements Provider Attestation: I was available for consultation for this patient. I did not evaluate the patient, or participate in any medical decision making or disposition decisions unless I am specifically named in the chart as having consulted on the patient. If I have consulted on the patient, please see my own ED note on the patient encounter. Reginald Delaney MD
== END 2019-03-24 23:02 | disposition home or self-care (01) ==
LOC: ED 20:09
DX: R60.0 Localized edema (principal); E11.9 Type 2 diabetes mellitus without complications; I10 Essential (primary) hypertension; J45.909 Unspecified asthma, uncomplicated; F41.9 Anxiety disorder, unspecified; F32.9 Major depressive disorder, single episode, unspecified; F17.210 Nicotine dependence, cigarettes, uncomplicated; L02.91 Cutaneous abscess, unspecified
CPT/HCPCS: 99282; A9270-GY

== ENCOUNTER 2019-04-15 08:35 | Emergency (ER) | payer SELFPAY ==
[2019-04-15] MEDS ORDERED: Ibuprofen TAB* 600 MG PO ONE ×2 (08:48→11:26)
[2019-04-15] MEDS ORDERED: Acetaminophen TAB* 325 MG PO ONE (09:02)
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
[2019-04-15 12:54] VITALS: BP 106/66
== END 2019-04-15 12:50 | disposition home or self-care (01) ==
LOC: ED 08:35
DX: M25.512 Pain in left shoulder (principal); V47.5XXA Car driver injured in collision with fixed or stationary object in traffic accident, initial encounter; Y92.410 Unspecified street and highway as the place of occurrence of the external cause; E11.9 Type 2 diabetes mellitus without complications; I10 Essential (primary) hypertension; J45.909 Unspecified asthma, uncomplicated; F41.9 Anxiety disorder, unspecified; F32.9 Major depressive disorder, single episode, unspecified; F17.210 Nicotine dependence, cigarettes, uncomplicated; Z88.8 Allergy status to other drugs, medicaments and biological substances
CPT/HCPCS: 72125; 99282; A9270-GY